=== PATIENT | female | born 2000 | race Caucasian/White ===

== ENCOUNTER 2023-06-26 10:38 | Outpatient (OUT) | payer MEDICAID, SELFPAY ==
--- NOTE | 2023-06-26 10:42 | US_ITS ---
[address] [address] Patient Name: ZOHAIB HAQUE MRN: [id number] date: 2000 Sex: F Assigned Patient Location: US Current Patient Location: US Accession/Order Number: [id number] Exam Date: 06/26/2023 10:42 Report Date: 06/26/2023 18:02 At the request of: LACI CELESTE Procedure: US OB transvaginal EXAMINATION: US OB transvaginal HISTORY: MISSED MENSES COMPARISON: No relevant comparison available. FINDINGS: Mayorga intrauterine gestation Gestational sac: 2.34 cm, 7 weeks 0 days CRL: 1.19 cm, 7 weeks 3 days Yolk sac: 4.4 mm Heart rate: 147 bpm Uterus is normal, anteverted, anteflexed The ovaries are normal in appearance The cervix is closed measuring 3.6 cm Clinical age: 7 weeks 0 days Clinical JUANITO: 02/12/2024 Ultrasound age: 7 weeks 3 days Ultrasound JUANITO: 02/09/2024 US/US OB transvaginal IMPRESSION: Viable mayorga intrauterine gestation measuring 7 weeks 3 days Electronically authenticated by: BEVERLEY RIZZO Date: 06/26/2023 18:02
== END 2023-06-26 10:39 | disposition home or self-care (01) ==
LOC: US 10:38
PROVIDERS: PCP Family Medicine; Visit Provider Obstetrics & Gynecology
DX: N92.6 Irregular menstruation, unspecified (principal); Z3A.01 Less than 8 weeks gestation of pregnancy
CPT/HCPCS: 76817

== ENCOUNTER 2023-07-29 11:15 | Outpatient (OUT) | payer MEDICAID, SELFPAY | END 2023-07-29 11:16 | disposition home or self-care (01) | PROVIDERS: PCP Family Medicine; Visit Provider Obstetrics & Gynecology | DX: Z36.0 Encounter for antenatal screening for chromosomal anomalies (principal) | CPT/HCPCS: 36415 ==

== ENCOUNTER 2023-08-26 20:06 | Outpatient (REF) | payer MEDICAID, SELFPAY ==
[2023-08-31 11:08] LABS: Age Gdln ACOG Testing Note (.); IGP, rfx Aptima HPV ASCU Note (.)
== END 2023-08-26 20:07 | disposition home or self-care (01) ==
LOC: LAB 20:06
PROVIDERS: PCP Family Medicine; Visit Provider Physician Assistant
DX: Z01.419 Encounter for gynecological examination (general) (routine) without abnormal findings (principal)
CPT/HCPCS: G0145

== ENCOUNTER 2023-09-30 09:31 | Outpatient (OUT) | payer MEDICAID, SELFPAY ==
--- NOTE | 2023-09-30 09:34 | US_ITS ---
[address] [address] Patient Name: ZOHAIB HAQUE MRN: [id number] date: 2000 Sex: F Assigned Patient Location: [facility] Current Patient Location: [facility] Accession/Order Number: [id number] Exam Date: 09/30/2023 09:34 Report Date: 09/30/2023 10:32 At the request of: LACI CELESTE Procedure: US OB cervical length EXAMINATION: US OB anatomy, US OB cervical length HISTORY: ANATOMY COMPARISON: No relevant comparison available. TECHNIQUE: Transabdominal sonographic examination was performed for obstetrical and evaluation. FINDINGS: Number: 1 Heart Rate: 166.0 bpm H.B. /min Amniotic Fluid Volume: Subjectively normal position: Cephalic presentation, longitudinal lie Placental Location: ANTERIOR, the placental edge is 6.3 cm from the internal os Cervix Length: 3.8 cm , closed Normal anatomy: Lateral ventricles, cerebellum, posterior fossa, nose, lips, orbits, four-chamber heart, RVOT, LVOT, diaphragm, stomach, kidneys, abdominal cord insertion, bladder, umbilical arteries, three-vessel cord, spine, extremities BIOMETRY: BPD: 5.0 cm 21 weeks 1 days , 68% HC: 19.1 cm 21 weeks 3 days, 72% AC: 15.3 cm 20 weeks 4 days, 38% FL: 3.4 cm 20 weeks 4 days , 36% EFW:368.3 grams; 13 ounces, 42% FL/AC: 22.0 FL/BPD: 67.3 HC/AC: 1.3 GESTATIONAL AGE: Age by EDC: 20 weeks 5 days Age by current US: 21 weeks 0 days JUANITO by current US: 02/10/2024 JUANITO by EDC: 02/12/2024 US/US OB cervical length IMPRESSION: Normal anatomy scan *Reference: [facility] Practice Guideline for the performance of Obstetric Ultrasound Examinations, May 24, 2007. Electronically authenticated by: BEVERLEY RIZZO Date: 09/30/2023 10:32
--- NOTE | 2023-09-30 09:34 | US_ITS ---
[address] [address] Patient Name: ZOHAIB HAQUE MRN: [id number] date: 2000 Sex: F Assigned Patient Location: [facility] Current Patient Location: [facility] Accession/Order Number: [id number] Exam Date: 09/30/2023 09:35 Report Date: 09/30/2023 10:32 At the request of: LACI CELESTE Procedure: US OB anatomy EXAMINATION: US OB anatomy, US OB cervical length HISTORY: ANATOMY COMPARISON: No relevant comparison available. TECHNIQUE: Transabdominal sonographic examination was performed for obstetrical and evaluation. FINDINGS: Number: 1 Heart Rate: 166.0 bpm H.B. /min Amniotic Fluid Volume: Subjectively normal position: Cephalic presentation, longitudinal lie Placental Location: ANTERIOR, the placental edge is 6.3 cm from the internal os Cervix Length: 3.8 cm , closed Normal anatomy: Lateral ventricles, cerebellum, posterior fossa, nose, lips, orbits, four-chamber heart, RVOT, LVOT, diaphragm, stomach, kidneys, abdominal cord insertion, bladder, umbilical arteries, three-vessel cord, spine, extremities BIOMETRY: BPD: 5.0 cm 21 weeks 1 days , 68% HC: 19.1 cm 21 weeks 3 days, 72% AC: 15.3 cm 20 weeks 4 days, 38% FL: 3.4 cm 20 weeks 4 days , 36% EFW:368.3 grams; 13 ounces, 42% FL/AC: 22.0 FL/BPD: 67.3 HC/AC: 1.3 GESTATIONAL AGE: Age by EDC: 20 weeks 5 days Age by current US: 21 weeks 0 days JUANITO by current US: 02/10/2024 JUANITO by EDC: 02/12/2024 US/US OB anatomy IMPRESSION: Normal anatomy scan *Reference: [facility] Practice Guideline for the performance of Obstetric Ultrasound Examinations, May 24, 2007. Electronically authenticated by: BEVERLEY RIZZO Date: 09/30/2023 10:32
--- OUTSIDE RECORDS SUMMARY | 2023-09-30 09:47 | XMS_ITS | CCD ---
Author Name Unknown Address [address] [place] [address] Organization [facility] Care Team Providers Care Graphic Manager Name Role Phone Quiana Naranjo Meredith Unavailable Burak DO Quiana Meredith Primary Care Provider [phone] BURAKQUIANA Meredith Primary Care Unavailable BEVERLEY RIVERO Attending Unavailable BURAK, QUIANA N Primary Care Unavailable TONI CARLSON Attending Unavailable Burak DO Quiana Meredith Primary Care Provider Quiana Naranjo Unavailable EMILY CHENG Attending Unavailable LACI ZAYAS Attending Unavailable LACI ZAYAS Attending Unavailable Burak, Quiana Primary Care Unavailable Benny Candelario Admitting Unavailable Benny Candelario Attending Unavailable Burak, Quiana Primary Care Unavailable Brock Watson Admitting Unavailable Brock Watson Attending Unavailable Brock Watson Admitting Unavailable Brock Watson Attending Unavailable Burak, Quiana Primary Care Unavailable YANIV CHAU Attending Unavailable YANIV CHAU Admitting Unavailable Burak, Quiana Primary Care Unavailable LACI ZAYAS Admitting Unavailable LACI ZAYAS R Attending Unavailable Burak, Quiana Primary Care Unavailable Luis F Reaves I Admitting Unavailable Dave Reavessein I Attending Unavailable Quiana Naranjo Primary Care Unavailable Allergies Allergy Classification Reported Allergen(s) Allergy Type Date of Onset Reaction(s) Facility (2 sources) natural latex rubber; Translations: [Latex] Allergy to substance (finding) [facility] Repository (4 sources) Penicillins; Translations: [Penicillins] Allergy to drug (finding) 12-16-202 1 [employer] (4 sources) Latex Propensity to adverse reactions to drug 2 Rash [facility] [employer] (3 sources) Penicillin Drug Allergy rash Tomorrowish Other Medications Current Medications Medication Drug Class(es) Dates Sig (Normalized) Sig (Original) calcium chloride 0.0014 meq/ml / potassium chloride 0.004 meq/ml / sodium chloride 0.103 meq/ml / sodium lactate 0.028 meq/ml injectable solution (3 sources) Start: 03-23-2022 End: 03-23-2022 lactated ringers bolus ferrous sulfate 325 mg oral tablet (1 source) take 1 tablet by mouth in the morning ferrous sulfate (IRON 325) 325 (65 Fe) MG tablet Take 325 mg by mouth in the morning and 325 mg before bedtime. 0 Active metoclopramide 10 mg oral tablet (2 sources) Dopamine-2 Receptor Antagonist Start: 08-08-2021 take 1 tablet by mouth four times daily metoclopramide (REGLAN) 10 MG tablet Take 1 tablet by mouth 4 times daily 15 tablet 0 08/08/2021 Active w/o A Vit-Fe Fum-FA (PRENATA PO) (2 sources) w/o A Vit-Fe Fum-FA (PRENATA PO) Take by mouth 0 Active Completed/Discontinued Medications Medication Drug Class(es) Dates Sig (Normalized) Sig (Original) aspirin 81 mg oral tablet (1 source) Platelet Aggregation Inhibitor, Nonsteroidal Anti-inflammatory Drug Aspirin 81 MG TABS Quantity: 0 Refills: 0 Ordered: 20-Feb-2020 DO Active 2 ml ondansetron 2 mg/ml injection (3 sources) Serotonin-3 Receptor Antagonist Start: 08-11-2021 End: 08-11-2021 ondansetron (ZOFRAN) injection 4 mg Start: 08-11-2021 take 1 tablet by lucila th every eight hours as needed for nausea ondansetron (ZOFRAN ODT) 4 MG disintegrating tablet Take 1 tablet by mouth every 8 hours as needed for Nausea 20 tablet 0 08/11/2021 Active 50 ml sodium chloride 9 mg/m l injection (1 source) Start: 08-11-2021 End: 08-11-2021 0.9 % sodium chloride bolus Problems Problem Classification Problem Date Documented Date Episodic/Chronic Early or threatened labor (2 sources) Finding of uterine contractions; Translations: [False labor, unspecified] Onset: 03-23-2022 Episodic Other complications of (1 source) Mild hyperemesis-not delivered; Translations: [Mild hyperemesis gravidarum] Episodic Other screening for suspected conditions (not mental disorders or infectious disease) (1 source) Carotid artery finding; Translations: [Other nonspecific (abnormal) findings on radiological and other examinations of body structure] Chronic Spondylosis; intervertebral disc disorders; other back problems (1 source) Sacrococcygeal disorders, not elsewhere classified Episodic Transient cerebral ischemia (1 source) Amaurosis fugax of right eye; 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 Results Test Name Value Interpretation Reference Range Facility Coding Summaryon 09-03-2023 Coding Summary HTMLBase 64 HgensitfBQx8vUw+PGhl YWQ+OP4DYJJoH82lcIBz bK8hT5LLTEeHGhecZTXE UCmZWjQuoeCaRU7uiWHy ZXJu IC8+IL9mKLCwJysciERx j2T4bRT3M33rqk5uOLcz lRW2KSTfTkZkuhuuv4kj pYn9MYxtEqesTvMz LOIlxX71XPS8iO87Hl41 aCLdnOBgw2mhbOr3FqHq PTAlYBZ9qXluVIseu7Ah XYTqT92qjHQzo2L7 IGNvbGxhcHNlOyBlbXB0 jO4jCRqcqojxm6cwrlyr Pvz5xa95gOBks4Q8nSI6 T6WrgfU3DCQzwWCq KytbmPBTuG0mogyal4zd yazcSuAzNDQhVHp4TZb2 RUDvwZqaReNpSF71NAJ7 SFDjdvBqX8NcBBWm sFilBhE0r1N5Nv1RF2VP AkyfK0PLLUOBMKaayEL+ UZ28br98A2IuVobjZbj5 SLHvHCH8bQJ2qT7m GFFaESujq3O8qRS0M8Bd zqRsrg9ft0erJGHhSUjp N74kfNIgc5R6GTDuxZJ5 KKDchJadQsSmbF79 Oyc+MXZfkTjzx7JqUwan o6gcb6jjqQy5BgyzSDLl vgHreCduKFH3k3ZpGz4h VESlfSC9lYQ1jW1s VaKeOwP6CUlpU988GbKb tOLuDahoC47sH0GszKO+ CSVqZrz2YHQenUsgEQ2r Z6DoMZJivzzetUDf nNuzSJ1oUQTdieieCEGd cV1zLMXfI8o5KsGqCxR6 BMovP7VhDIZsyzgbVa82 eA7tJqZmDxF4UAdj Z2MmtuA8UJQkkRDrSYws JJS3R70pr4T2PLLbVBIu LXH9sLS3gX7xeQuiflrm bGVmdDsgdmVydGlj QUhdXXieF041ZAOsnXxv PkNvZGluZyBEYXRlOiAg MDEvMTEvMjAyNDwvdGQ+ ZHKsJGM3qGcyEVKx pGMhSKeoIr3swZwtoCmz VV0mTWFfukcgPPIbnD4h ZTKrvLXveSwaJT7qRJAv tofqi908VhZdEHO1 HCBxsTRwV8YihK4hPuKg SVYeBCZzQ4IzjGFcYTeo O212VCchOkK5LNYatrJt H3BfKLXnwUhuJwA0 e9P1Ra2Nd1IilpsnE4Gi uOIzBoFiEyekOWy8B5Hj PjwvdHI+RV23LLJqSY52 TNd3XAH9cRfiFOhg WCYdP6SdqV3xBrRnBMPv ZGRkOyc+PHRhYmxlIHdp ZHRoPScxMDAlJyBzdHls DY2jNe6zUHOhHFTz uKeyoMPkTwUob0fyKAKz ZSsoAM4gfOfrV2FtgOX7 XNRrv3b9Cb53K68lM2Rx dXA+BJXdrRD1wBK9 gE1yXjRvNyP3SMxuQ003 PnDwuJEbUqqbo8jcd9ox hKc8GoV9UCIwqrRoyCyp FGW0r0GqWe11E27w IHdpZHRoPSIxNSUiIHZh vPyexs4gvC6zOp3+PGNv vCK5tRY8sP0wOlCkQzB5 QTziU710NpTvsTUr Nypct3gon6zexNo9DaGu GTPpanGlnNnyGFU4g5Fk Xh13O5FkeNasd7DuVkt2 xp64gGKcg8T2iUN0 O5KtHMTvhppqiZHowJua CG5gSOUyzqrfICViiU4h NRCaH1i9PmCoVyJ5MLan I0UmauL0BNSiiCNa NFQogMZJzX3vwatvn4vn pqozDwGiLHXhMAb2JMs9 MODmvAkeDgBpMFD4XzL6 FHG0aVEajX5zwNgp mefeeI6sLaf+QWF7dJMf rQFOEY9qDhesmHK+PHRk MLW1zZibDYzpWPKqhE4q IVUcF8w8RuMiUlK9 ERexE1SfmgJ5WODvqLKv YCWhgUEZxH9bcblbn2ac ngkkPeSmIQNpCIk6GKh1 LWFsaWduOiBsZWZ0 CaQ6FYS4xYIgvF9lcHzq ynydxW2vVdx+QmlydGgg YMH3UHt8M0DsTkc8RPBm xNqxHG0buELySAmx Ty2iwSnauAhaIT6hQANo wzlno508WkBop3oaDNWn iLXmETujYNB8P36vd7L8 YZOtCEXxFCR1tKJ6 nN0vwSnwflvidSKpnObe azNplIjaZKkbSVngC612 PCDnhFdjGfPtRQa8M8Mo Egm5QHYxdTehJR3r uBSlJFkfGy0ggDhofUmn CD6bJTEgwpdrt735XjHl t1ajYPQsdMXoWTxrUGJ7 Z14ix1T3TPZcSODq LEE1kJA5jF7koXtikdqr bGVmdDsgdmVydGljYWwt FUptC747WUApzTdlBkQi lIs9O5VdMvw1SOVn dYdwUQ5tiNDfZIsqNx0p rTgpdWqiFJ1uCJOmvpwl w323KtYpn0itYLTuvAYy UYobIXZ7Q88vk7V2 ZCNiFNBaQOM5vLI8eL0s bGlnbjogbGVmdDsgdmVy vTifHNjmBAsnD232ESQc cDsnPlBhdGllbnQg ZOtdPJl7J8GnPqrqyHK+ SS92YGMrCI24xKMwfGJh m3tauTm4XxXdNPCjFKM6 dJklHOjca9YpDCUm E63gfTOjn4O3SIBosBcg aLGiHrVswXY3mP0hXIkt izhsi3dnbgvyMztip3kk iy55oW61A35lWBuy ZHRoPSIzMCUiIHZhbGln ac7fhK8rSn8+PGNvbCB3 vJD1vY6cIIPgQgS7EMzt E439TiHuzJDsRbca r9diy9htsGe4QtC1YQDo ckYtoBmpPYO2y3LrOk40 H15sFCpeGLLtYTGbKZIx BNSzgXydyj1bqS0c Ii8+NWJwcIG8tVG6cS9e SyAdFgS8CYlxO161VtSf pCVfYivhI56bE2LkdMG+ HZEtMiu8MQMnuHuk FD0umSUeXKmuHi3oYQB8 OeVfBiQyFTizH2ZnCRIw czoxkdmowOV1FFGcJAMk cA36Uq2uqLpbLGGi nLLGcO0lenflg0hkzpvb ZaCdJVBjOLq3RRy2XVVj xCfqErXjWHZ7TcQ9QMS8 vKOknH9kcKyvhqko qO0uT6ZlRYYsloltYx81 pM6yMxHoLoA0OZteRkl+ U4RAJ5svWQ2OLowBZjZY VWJGI2MUSV74UP23 nNEyu2W3cOU6P4CoXOLq yjvwebugnIK4PAUxRWAa kD08uGPvHZnxCl4fb9W2 s322PXScTXUkaQ31 Cv2qyTprHNDqrTTZuY4f deavt3smhpufLzJjJWDv QZh5TKs8GYOnnIdcKtNa DEG0TvO6HDQ8zVIq iA8ruVcwlkhqlZ6lNif+ MTAvMjMvMjAwMTwvdGQ+ UHLmPFG9hBbhRAnkDZJq nC1mIAIvP4j3HyDs XjY7RZbbP4WlVFGdyusk Nw41kU2oTxWoVsE6HKrm K9RrvyZ1QVDnkSMhLHuu EBA4W62kc6F1OPLv NEKcXWB4aTY9vT6nyGmw bjogbGVmdDsgdmVydGlj SFxsGNsnE899JZCyzPur CnNaQKemQVVsRE08 GL54sNUhs5O5eBE3A0Iv YAXnaeghqcikwWY1SZFe QCTzmW12uSZvEOsbEo2s u1N9k781ILSaMGTl gZ79Zs3xaHtfTAPvkZXD lP0bqosjo3narxbpIpOq ZHOeFYx1JHc7BWWlyKss UdFpVHV4OhP8ZHD4 bSFyyS4qiTywibmuzS9z Oyc+UcVFBSpXFE90MK34 jZAam1J5mJH3Z8BxQISj ojrzkhfqeNE2JZRh ZKLibC52wVTvSSgaXg6e n8I5w480WGTtEIBbfS86 Gv8ioTfxCUPpoOQGaC2l npadz7emcxjkRpGb OFYlQJg8RDy4WORrxRcy RsVjMTU8LlQ6AEY8lCKi bM1rgNnmtlurzZ4cEvk+ QG2iudlxxsV4AG52 VB40U2SmYnrfoLXmkWR+ PHRhYmxlIHdpZHRoPScx KJCyXgEhpBbyZS5kEx0a ZGVyLWNvbGxhcHNl RtJuy3wiDEEuTRpzDQ5k fRasW3UqeAB0IVEhl3n5 Ar84V59pT7PupDL+PGNv sJW7mCB7eS4wGtDn YnG4COhxZ469DzVugUVh Yaxvb0ezp5ljrWr3WoQe YCVemfLaxLtaEXX4y7Ao Ic54L51gWJwcEURv RJTnTGDsIYKjfIftxn0r xO5fNr5+EOHtiRS2zDA5 fG5qUgScSxH6YMfiY880 IoZrsUIvCcntN90a Q9CofPM+OZPgYia7ZIHj rWrcTM9axRVlCAoaGt3j XUQ8TsUxTjAdHZqnK8Ad ZGRpbmctcmlnaHQ6 YRNuXMJbmP24Lh7iaGiu Co3lWZBiBZA1TMTuvLZf N9BobW3hBnFkIRCuEGOq D0QdbHOsUOvsP450 FEvmKhV1FAYvszLvH6Ue OBAleVstEuZ9u6D9Ir3C dYccsWZmPB8pRgZnVAz8 M2BpQpt9AWImxZlm OM2axWTqUOebWk2uwXpf pYfnMF8eWRWmfrdyy522 QhCxf2xrSLAvhNYxKCnm FDU1S04gl5A5TRFf QWLiVTK7fOR3bH8zlKfa bjogbGVmdDsgdmVydGlj CGzmAXjiY987QJFbcFmu GhLKLic4H4XoJon8 PTNuyIhcAP4dmDFtJSnb Pt5jgBkivEcqPD0aYASt rscwd520SqObn6mjUAQz hHLwDXsaSOK2Y17y s3N8HAUoGVDvNYA2oNJ1 tZ0ixGwdvuqvmZVrzCjc rlArgWynZJlxDQofS966 QVAixXzbAq3ZXyg6 Q7LzRuy8KYQvfNmiNT1n aAGlYVdzLq0inMxjiDgp OR5wJOIdopprf457VoMo b7ilFTPwiQMwLXxf WJK0D46it1V5WNLrYCRd BME5mAR6rF0zhJdpymhg bGVmdDsgdmVydGljYWwt VSrxJ708LXQqeQqf PlBheWVyOjwvdGQ+PC90 vj34G1GqFqwqGtk6IIJo UMG8nRP5rS0wOSUaMGbs l9K7cXK2N7LzfiYi ci1 (more content not included)... Normal [facility] .QC SARS-CoV-2 (COVID-19)/Fl u/RSV (GeneXpert)on 08-22-2023 Internal Control Pass [facility] Comment on above: Order Comment: Order ed by Natan.[[email or web address]] Performed By: #### 7 [id number] ####[facility] (DEFAULT)[address] [place] [address] COVID/Flu/RSV (GeneXpert)on 08-22-2023 Flu A (GXpert COVFLURSV) Negative Normal Negative [facility] Comment on above: Performed By: #### 7 [id number] ####[facility] (DEFAULT)[address] [place] [address] Flu B (GXpert COVFLURSV) Negative Normal Negative [facility] Comment on above: Performed By: #### 7 [id number] ####[facility] (DEFAULT)[address] [place] [address] RSV (GXpert COVFLURSV) Negative Normal Negative [facility] Comment on above: Performed By: #### 7 [id number] ####[facility] (DEFAULT)[address] [place] [address] SARS-CoV-2 (COVID-19) RNA MICHELLE+probe Ql (Unsp spec) Negative Normal Negative [facility] Comment on above: Result Comment: Perf ormed by PCR methodology. Performed By: #### 7 [id number], [id number] ####[facility] (DEFAULT)[address] [place] [address] ED Clinical Summaryon 2022 ED Clinical Summary [facility] Emergency Department [address] [place] [address] ED Clinical Summary PERSON INFORMATION Name: ZOHAIB HAQUE Age: 23 Years Sex: FEMALE : 2000 MRN: Acct#: Visit Reason: Chest pain - Pleuritic; Sinus Pain/Congestion; CHEST CONGESTION Arrival: 08/22/2023 09:35:20 Discharge: 08/22/2023 10:51:00 LOS: 000 01:16 Check In: 08/22/2023 09:35:20 Checkout:08/22/2023 10:51:00 Address: [address] [place] [address] PCP: Quiana Naranjo DO PROVIDER INFORMATION Provider Role Assigned Unassigned November SENIOR PYTHON DEVELOPER Nurse 08/22/2023 09:41:27 Luis F Reaves MD ED Provider 08/22/2023 09:43:28 VITALS INFORMATION Vital Sign Triage Latest Temperature Tympanic Temperature Temporal Artery 36.9 DegC Pulse Rate 72 bpm 105 bpm O2 Sat 97 % 100 % Respiratory Rate 18 br/min 16 br/min Blood Pressure /58 mmHg /58 mmHg MEDICAL INFORMATION Medications Given: Medication Dose Route albuterol-ipratropiu m (albuterol-ipratropi um 2.5 mg-0.5 mg/3 mL inhalation solution) 3 mL Nebulized Inhalation Allergy Information: penicillins; Latex PHYSICIAN DOCUMENTATION DISCHARGE INFORMATION: Discharge Disposition: Home Discharge Location: Home PATIENT EDUCATION INFORMATION Instructions: Bronchospasm, Adult, Avql-bs-[id number]; Upper Respiratory Infection, Adult Follow-Up: With: Address: When: Quiana Naranjo [address] [place] [address] Business (1) Within 3 to 5 days Comments: Call for follow up appointment DIAGNOSIS: Reactive airway disease; Upper respiratory infection Patient Understands: Yes - Patient/family/careg iver verbalizes understanding of instructions given Comment: Normal [facility] ED Patient Summaryon 023 ED Patient Summary [facility] - Emergency Department [address] [place] [address] PATIENT DISCHARGE INSTRUCTIONS Patient Information Name: ZOHAIB HAQUE Age: 23 Years Date of : 2000 Reason For Visit: Chest pain - Pleuritic; Sinus Pain/Congestion; CHEST CONGESTION Arrival Time: 08/22/2023 09:35:20 Primary Care Physician: Quiana Naranjo DO Attending Physician: Luis F Reaves MD Comment: Visit Diagnosis: Diagnoses This Visit Chest pain - Pleuritic ([id number]) Reactive airway disease (J45.909) Sinus Pain/Congestion ([id number]) Upper respiratory infection (J06.9) The Pharmacy at [facility] is open Thursday through Thursday from 9A to 6P and Thursday and Thursday from 9A to 5P Prescription Information: If you have been given a prescription for narcotics, seek immediate medical attention if you have any difficulty breathing or any sudden status changes such as confusion and sleepiness. If you or anyone you know is experiencing suicidal thoughts, mental health, alcohol and/or drug addiction problems; contact the [facility] 16/03 Crisis Hotline -Text 4HQUB zc 364618. If you received any narcotics, sedation, or any other medication that causes drowsiness for the next 24 hours, unless otherwise directed: ? Do not drive a car. ? Do not operate machinery such as power tools, lawn mowers, drills, sewing machines, or stoves ? Avoid alcoholic beverages and drugs for allergies, nerves, or sleep ? Do not make important personal or business decisions or sign any legal documents With: Address: When: Quiana Naranjo [address] [place] [address] Business (1) Within 3 to 5 days Comments: Call for follow up appointment Medication Information: The exam and treatment you received today in the [facility] Emergency Department were for an urgent problem and are not intended as complete care. It is important for you to follow up with a doctor, nurse practitioner, or physician?s ophthalmic assistant for ongoing care. If your symptoms become worse or you do not improve as expected and you are unable to reach your usual health care provider, you should return to the Emergency Department, we are available 24 hours a day. For those patients who have received Radiology results, the interpretation of your X-ray as given to you by our Emergency Department physician is only a preliminary report. The Radiologist will review your films and if there is a change in the diagnosis you will be notified by phone. Please make sure you have provided a working phone number so we can reach you if necessary. In the event that you had a lab culture while you were a patient in the Emergency Department, you will be notified by phone if there is a need to change your antibiotic. Please make sure you have provided a working phone number so we can reach you if necessary. [facility] Emergency Department has provided you with a complete list of medications post discharge. Please inform your sports physiologist/provider of your visit and for further instruction on these medications. Any specific questions regarding your chronic medications and dosages should be discussed with your primary care physician(s) and/or pharmacist. New Medications [facility] [address] [place], [place] [id number], [phone] albuterol (Ventolin HFA 90 mcg/inh inhalation aerosol) 2 puff(s) Inhale (breathe in) every 4 hours (scheduled) as needed for wheezing. Refills: 0. amoxicillin-clavulan ate (Augmentin 500 mg-125 mg oral tablet) 1 tab(s) Oral (given by mouth) Every 12 hours scheduled time for 10 Days. Refills: 0. Additional medications on your home medication list not specifically addressed. Please contact the ordering physician if you have questions about these medications. azithromycin (Azithromycin 5 Day Dose Pack 250 mg oral tablet) 1 packet(s) Oral (given by mouth) once. as directed on package labeling. Refills: 0. ondansetron (ondansetron 4 mg oral tablet) 1 tab(s) Oral (given by mouth) every 4 hours. Refills: 2. ondansetron (ondansetron 4 mg oral tablet, disintegrating) 1 tab(s) Oral (given by mouth) every 8 hours as needed as needed for nausea/vomiting. promethazine (promethazine 12.5 mg oral tablet) 1 tab(s) Oral (given by mouth) every 4 hours (scheduled) as needed for motion sickness. Visit Information Allergies: Substance Reaction Symptoms Type Comments Latex penicillins Drug Vital Signs: Vitals and Measurements this Visit (last charted value for your 08/22/2023 visit) Vital Signs This Visit Temperature Temporal Artery: 36.9 DegC Peripheral Pulse Rate: 105 bpm Respiratory Rate: 16 br/min Systolic Blood Pressure: 111 mmHg Diastolic Blood Pressure: 58 mmHg SpO2: 100 % Oxygen Therapy: Room air Measurements This Visit Height/Length Latoya (more content not included)... Normal [facility] Coding Summaryon 07-27-2023 Coding Summary HTMLBase 64 RdsbqcjvUDj7kRs+PGhl YWQ+FN1NBCQyR82hdRFh wC6fI6WGKWhGFldxSVTQ ICzNYfYyycJuYR5bsTKt ZXJu IC8+IK6aBMRaJnxusAXr l8T1kNQ7J78wlw4bRQaz dZK5HCNnWdOqbaupi1gl rNv0REsuUkvdCsDa WSVqhT78BRI4aC26We57 oPJlxDSds4euiOq5CcSn JLRhGWJ9mWcpBYzko0Zq DRAnE30oiCFmw3Z5 IGNvbGxhcHNlOyBlbXB0 tG9rYJpmunmdr0ynbbla Zxq5az50fPJmc1F5yVP7 R3KewyR2XZFrcWZa SevgyRUBmG9todvtk1wo gkhvByEcSNNbYGs2TWx7 OYFvxYspAvKuBB27PQC6 LRKlxmLwR0AyDMCt iXmtYkF6t6Z1Oi2RR9FN FysaR2VJUWCYXJqpwAF+ WJ06qg45X7TpLyumTlo7 RPIvPBI4tMP3rA9k UXKhLHeei3G4xUS7F7Cs woLsdh9eh3btONOpTGan R09ftAYmc0H6IVWrgCF2 CDSxvIegYrGmmL25 Oyc+RKNimDjmg4EnIfqs p9wcz3wieXj3PozrCDJn hgXqqPrdFHR3n7EuIm7t FVDolOY5nSH2gL0k LbXgOzP0UYhmC896DwQv qDMdZaszK52kZ8MdlSL+ HTLhGyp0NVGujKccYL5d S4LuTPQfrhowpFDx gUvyMO9yMZPhglrxACFw gY3vZQSeP9x8SkMdPgY1 ONhaZ6AdMLAbitqtGj06 lJ9iRpPqEsM1DZkz W5WgciX8BEUwlREbBAyu INP2J76dg8Q5FYDiLVVj TXY2gNY3sR8ggNdlwvkr bGVmdDsgdmVydGlj QWwrDBkpQ382DITglByo PkNvZGluZyBEYXRlOiAg MTIvMDQvMjAyMzwvdGQ+ VCWvMKY6nUflOXSz bNGcHPazVa2dbDiltBdr IU0kXLMgeqfnMRCyvO7v WCIhgIJdeTivNX4eCWIk ipaxp055DuBmOST8 NBYrwCWgN5LdbL7oOoUc LLEwSTYhE1ZeyBUhRBtp K617EFtqYqZ9KXJhenUa N5YpKTVzrVchFpD8 q5X1Sz2Wt8WomjblD9Mc yAChRdRzBgjpWVm7M7Ny PjwvdHI+SI11HYOzHF92 QGq0ZAA4bWhfXQyf CBTzE6RtkL3iVqSzHVDl ZGRkOyc+PHRhYmxlIHdp ZHRoPScxMDAlJyBzdHls XA8uZb0pSZAlQKFu rLfgaTNuVoXjt1wdLJZr BAzwWO5kwHkbH0OugWN6 AADxb9r9Tx65V38lU1Br dXA+UEIdbFZ5oUE0 nW4sYtNjBzJ7SHgzB417 ZjKweWRsDbrzm3lkr0qm fSn0OkY6RUDactQvmIkt ZWQ7t7OtCy59N67v IHdpZHRoPSIxNSUiIHZh nJmmto0ctR8nAm3+PGNv nPK5nML2nM3oDnBjYaT5 SFzcN735EjCjoRSz Rclcy1zrv4dlcSz3MuQw MXTrbeLoeJamIZX2z0Tq Ri55H6StlYzrq1LcGnb0 oz09iABej4N0pLH5 A7IhLSYywjdszHDoeJfd IZ7sPIUtdjhuFVClwC8p OKCsT3q1EaGlDhT9HIpc S7DvsvR9EIEkyPHr TKPfiBAFjN7osfcij2jj xcfsWzOnXCLsFQt0DNc2 CBMmoAzaXaOfLZE9FzB1 PGJ2lKRuyC3ydWct dfggvY9wBul+IHS0cRVr tIHQKL1iCgbqgHF+PHRk SGC2xRyhBSkxMWCwaL8i EPSmZ4f0AnMqTsO9 ONpgU7HoonH4ABSsnQPo LJYazTINjW2wvgoxl7xu rlisRgViLIWfERe6MWr9 LWFsaWduOiBsZWZ0 VpZ2TPD5uHUzsN0puOiu xlidhA2mAly+QmlydGgg VXF9GMb1S5RzDew6YCXc mJhhVZ9yaTGlGFas Md8puAxqsYqqEC2rPTXx vrkze201IdVsa8qfQFCz oGNwYNxpBNU6M87il5A8 VPTnAKDbVTV6qPG3 aP7gtDaibjddfZDynWky keGjhXzqAGdsWQwzS482 FJKujHvsGzUcIVc6M0Md Qat6CCLaaPnuHT8i hBZzJXooCu4agHpjkIlo LP5lMLPpzhwvt031LkHe m8kuLEOcxMZqBKkxXVL0 H46pi5X6XHWxDUXe ECJ3jCG5uH5ryMesolqx bGVmdDsgdmVydGljYWwt HIwkV394KDSpqAacBcJf lJc7E2NeNqt1TGAi nAznDF9nuHOsNWveHb9n cQzcqKoxHZ9lLDOfppqk m107PeZky5beYGDhgEOz HZgxLWX6R74yn2S6 NKEaTEVoUJZ2yTH2fC0h bGlnbjogbGVmdDsgdmVy uNwyZEurRInpI860VCFb cDsnPlBhdGllbnQg LAjfORr0A3KiXyxofQQ+ WH81BQBzXB28iIOpfAGo u4zjvYg0LiBdYKNkDMA4 aMzuQWjsm4TsLZCb Q48wkUIok8M9KNRjlLor fBNrKsJisUK1mZ8eNBhh bdajb9qngyreNjsgk3wz ou81jI05T60wNMee ZHRoPSIzMCUiIHZhbGln gr4vnD4bTq1+PGNvbCB3 hOO3nW5oIRDbVsI4RJth Q494TdDxfBQpKfqd h6iql3hodDk9YpM6EWPb ynFofDayNWH6z6WeJi29 M37xTJfsEUQpFTPkCYWa DDBpsHqqnd1buU5c Ii8+NGKwyXW3zUQ8yC8z ImGgHcA5HKgyE755GpVd tJKzBtwgK37qB7KqoVS+ GDVpBgk8AYXplPcw BM4xsAFiDMzcQi2aACL3 ElKcWbEcQEpyR9BfVENe wuccaioxhSS0ZUUjVPDn dY23Sh1sqPetTTJa oIJBcI7hfcdfn3zibski UxEeGPRoYLh0RVs3SDVw cLenIpBfDZD5VrN7XWY2 vJGyzI5jpBzgwqwg aR7jU1MyEEYnnqcnCa30 qM8iOgScZdP9FBkxTcq+ U6EHU8peTJ8RFslGApUK PUJKK0HYIJ69OW78 pWCht8T3xJT1F0HrLYRw vhviwslijET3FFVaTQBw rG42fPSpBVziOu6st4J5 r503EBOjGLOoxZ81 Mv9ykRrjDYLisESIbS1n sihac1tiynnaDcMyXRCl EBk7QYs1XEXcqChvWyKp YSP2CuF0JSP9sPQo xP7rqWrhpnfnlF3lGfr+ MTAvMjMvMjAwMTwvdGQ+ MNOuXNJ4lGmrHAxeHCCe cQ0wQBDmB9d7RiHa VpT6XVzwC6JrVUXqejci Fq26rA0lGsNvEcE0AOop O2FywjX5DURajATjUBdc BQG2S18qq3F4JEBo VJNhBHM6mAM0pR5flPlr bjogbGVmdDsgdmVydGlj NHrgGWewH769AYRyqCef ZoOoMTmuIXTqFS62 LO22vJQzd1F0cIY7B3Wt ZBXwqdzgrendgNJ1SPLt WWIuvW21ePMhLRwtGk6w t4U9b789YXOiOSOx qB70Ni5jdZecHNSvqKVC nF9dppzki5ksouppPtWs EWVeNPn3CCs1RBBouLgv YuFiIDF5FpG5XGX4 yMFkzD6jxUekxuacfB0i Oyc+CzOCDGlJML59JU45 dJQur3X9iTT4G5BhSMKo xaxufibqeBK4SLGe APPkoB53eFZsFZhtLh6j l7N8v613YHTtZDEasD60 Vu8bxKhbLMXwaNTMvR5v syuky9cmhntcGzSo SGXbKIi3ODp6CXOeuArk EySjDJP7QcE7BWY7uUCn tI2lwRlwqlijtY0uReq+ Z3V9K9HiFmugbWE+ KS25PSDwRQ82pBWdiMSz p9elrTk6FfCbXNFwDXX3 bRtxBFatz1UnVCCpO35l hMVmn1J9VFPisCty qQCwBfJdmPC7qG9yJCru ceuik7zpqxgdOggwr3us zl11xD17H61hLAhiDFEv PSIzMCUiIHZhbGln ye1zuU7eWo0+PGNvbCB3 oMR9zL5bZlLfLiB7FFra R604DgEelELvFihfn4bb j8kayRu0HzCsKXIv mhUngQklYXA0r8UsBb85 J42cPUcgBLCiZYYsPPZh WSWsfXopqh0ahY0nDh1+ FS7ui8abre70tT83 dHI+OPTgIBD9pRxwLOxx EXKrxY2fDXkmSaX3TUBl HmUvoR14zOZfKMmcAq9l yHprvMsvAR4mTRDj xkywu528UpMtc4ifFJKy hYUePRmoOXR1O32cw0I3 OHSmWCKeODM9vIL6qC0s bGlnbjogbGVmdDsg meEugLwjHWiiYXrtO777 CARuqVimMlTcrHIkA4vb bbMHQG4cWtaypCI+PHRk SMS2pPuiRHcjYHDx xK6wNQFcV5l1HdTzItM0 NHyeF3IwcqZ8VTMspXXl ZMUohLZBiL6tiawhb6va cjogIzAwMDAwMDt0 LJx7WEAopEouXzSoQON1 OvG3DVO9uYGaqP7moTya rdknnH7rBvi+RklOOjwv dGQ+ETYbZCW3iSia LRtfUGQtbH1cNFTuK5w7 EqAhRxU5KQegU4PshnH0 UDLmgNMeKZHgbITDuQ6g lcpui1nvnlngDcSo DHCeQYd4GHu4WTDooVrm KxLmHMS9NaN2NXH9vCAd oT1sxQcummbdeW9vLrc+ TVJOOjwvdGQ+PHRk BMN7uHlfVXgbCDRbuJ4v TZOyX5g5YlVzIxP6BBgi X8NzcaW1SOWlrHKqDDNb nLCYpE0myhllh7kq lgbyPaSdQCJzKIu2GRo3 OVJxbMslNtHiKGW4PlJ5 JZZ8lISunP2kuTmpabcp rL6pSea+ELP5FJH6 SM48DU18W9TkKovsxMFx bGU+PHRhYmxlIHdpZHRo NNuwTKRtPoArjVucQF6r Br6aKSOvEZUzwSvd cHN (more content not included)... Normal [facility] .Toxoplasma gondii Ab, IgM, Comment on 07-25-2023 Toxoplasma gondii Ab, IgM, Comment Comment Invalid Interpretation Code [facility] Comment on above: Result Comment: It is presumed the patient has not been infected with and is not undergoing an acute infection with Toxoplasma. If symptoms persist, submit a new specimen after three weeks. Performed At: [facility] [id number] Ryan Voss PhD Ph:[phone] Performed By: #### [id number], [id number] ####[facility] (DEFAULT)[address] [place] [id number] C Urineon 07-25-2023 C Urine Mixed skin, or urogenital giovanny. Clinically insignificant Normal [facility] Comment on above: Performed By: #### [id number] ####[facility] (DEFAULT)[address] [place] [id number] Cytomegalovirus (CMV) Ab, Ig M LCon 07-25-2023 CMV Ab, IgM Cytomegalovirus LC <30.0 Invalid Interpretation Code 0.0-29.9 [facility] Comment on above: Result Comment: Nega tive <30.0 Equivocal 30.0 - 34.9 Positive >34.9 A positive result is generally indicative of acute infection, reactivation or persistent IgM production. Performed At: [address] [id number] Ryan Voss PhD Ph:[phone] Performed By: #### 3 [id number], 2275141, 4277630, 35644760, 16697818, 136117018, [id number], [id number], 7445098571, 50841479, 13100852 ####[facility] (DEFAULT)[address] [place] [address]602 HSV 1 and 2 Ab, IgG LCon HSV 1 IgG, Type Spec LC <0.91 Invalid Interpretation Code 0.00-0.90 [facility] Comment on above: Result Comment: Nega tive <0.91 Equivocal 0.91 - 1.09 Positive >1.09 Note: Negative indicates no antibodies detected to HSV-1. Equivocal may suggest early infection. If clinically appropriate, retest at later date. Positive indicates antibodies detected to HSV-1. Performed By: #### 3 [id number], 8737443, 7036805, 80723133, 46754684, 461197659, 6500236663, [id number], 5423144625, 23731896, 53937170 ####[facility] (DEFAULT)[address] [place] [address] 12672 HSV 2 IgG,Type Spec LC <0.91 Invalid Interpretation Code 0.00-0.90 [facility] Comment on above: Result Comment: Nega tive <0.91 Equivocal 0.91 - 1.09 Positive >1.09 HSV-2 Antibody Interpretation: Current guidelines and recommendations do not recommend routine screening for HSV-2 in asymptomatic individuals, including those that are . A negative antibody result indicates no detectable antibodies to HSV-2 were found. If recent exposure is suspected, retest in 4 to 6 weeks. Equivocal samples should be retested in 4 to 6 weeks. A positive result indicates the presence of detectable IgG antibody to HSV-2. FALSE POSITIVE RESULTS MAY OCCUR. Repeat testing, or testing by a different method, may be indicated in some settings (e.g. patients with low likelihood of HSV infection). If clinically appropriate, retest 4 to 6 weeks later. HSV-2 IgG antibody testing results should be clinically correlated. Performed At: [address] [id number] Ryan Voss PhD Ph:[phone] Performed By: #### 3 [id number], 0958642, 0957587, 09928985, 90336777, 896817999, 7312741619, [id number], 5867681642, 46914712, 55945216 ####[facility] (DEFAULT)[address] [place] [address] 46055 Rubella Antibody, IgM LCon 1 09-25-2022 Rubella IgM LC <20.0 Invalid Interpretation Code 0.0-19.9 [facility] Comment on above: Result Comment: Nega tive <20.0 Equivocal 20.0 - 24.9 Positive >24.9 Performed At: [address] [id number] Ryan Voss PhD Ph:[phone] Performed By: #### 3 1531122, 6759338, 8014048, 26073286, 05072715, 143544768, 6845364081, [id number], 1144152698, 12620788, 48454824 ####[facility] (DEFAULT)[address] [place] [address] 80367 Toxoplasma gondii IgM Ab LCo n 07-25-2023 Toxoplasma gondii Ab,IgM,Qn LC <3.0 Invalid Interpretation Code 0.0-7.9 [facility] Comment on above: Result Comment: Nega tive <8.0 Equivocal 8.0 - 9.9 Positive >9.9 Performed At: [address] [id number] Ryan Voss PhD Ph:[phone] Performed By: #### 3 3997448, 4167175, 1022541, 54112908, 22711380, 763466091, 5503993323, 58430474980, 4513091865, 62771008, 84951341 ####[facility] (DEFAULT)[address] [place], [place] [address] HCV Antibody LCon 07-24-2023 Hep C Virus Ab LC Non-Reactive Invalid Interpretation Code Non Reactive [facility] Comment on above: Result Comment: HCV antibody alone does not differentiate between previously resolved infection and active infection. Equivocal and Reactive HCV antibody results should be followed up with an HCV RNA test to support the diagnosis of active HCV infection. Performed At: [address] [id number] Ryan Voss PhD Ph:[phone] Performed By: #### 3 3126142, 1114577, 0776980, 60630254, 71149410, 580848917, 7282643814, 54496934115, 2959651829, 46090484, 89449789 ####[facility] (DEFAULT)[address] [place] [address]154 HIV 4th Gen Screen w Reflex LCon 07-24-2023 HIV Scr 4th Gen LC Non-Reactive Invalid Interpretation Code Non Reactive [facility] Comment on above: Result Comment: HIV Negative HIV-1/HIV-2 antibodies and HIV-1 p24 antigen were NOT detected. There is no laboratory evidence of HIV infection. Performed At: [address] [id number] Ryan Voss PhD Ph:[phone] Performed By: #### 1 [id number] #### [facility] (DEFAULT) [address] [place], [place] [id number] ABORhon 07-23-2023 ABO and Rh group Nom (Bld) Hx Check: Not Found Anti-A: 4+ Anti-B: 0 Anti-D: 4+ DCon: NT A1: 0 B: 4+ ABORh Interp: A POS Invalid Interpretation Code [facility] Comment on above: Performed By: #### 3 [id number], 6120812, 6608001, 69956114, 09422218, 424757238, 7289454817, 57132935603, 4863973984, 08870967, 71967958 ####[facility] (DEFAULT)[address] [place] [address] ABORh Retypeon 07-23-2023 ABO and Rh group Nom (Bld) Ordered by Discern. Anti-A: 4+ Anti-B: 0 Anti-D: 4+ DCon: NT A1: 0 B: 4+ ABORh Retype: A POS Invalid Interpretation Code [facility] Comment on above: Performed By: #### 3 0758986, 0795196, 1852718, 10669604, 87252060, 167746338, 9689661756, 85007682557, 3274558210, 38541914, 12641990 ####[facility] (DEFAULT)[address] [place] [address] 93096 ABSC Gelon 07-23-2023 ABSC Gel Negative Normal [facility] Comment on above: Performed By: #### 3 9608028, 9926553, 9205170, 50216206, 39295781, 820577591, 4110378721, 64988497885, 3833369902, 88950752, 94997012 ####[facility] (DEFAULT)[address] [place] [address] 05923 HgbA1c Standardon 07-23-2023 .Hb 12.6 Invalid Interpretation Code [facility] Comment on above: Performed By: #### 3 3700031, 7885950, 7421450, 13237735, 48435964, 177808847, 2561531553, 23303024456, 5030319236, 18979289, 75706444 ####[facility] (DEFAULT)[address] [place], [place] [address] .Hgb A1c 0.44 g/dL Invalid Interpretation Code [facility] Comment on above: Performed By: #### 3 6741453, 0301975, 6403086, 92640212, 29139209, 424643685, 3585517250, 76171478845, 9393339920, 88572385, 42938334 ####[facility] (DEFAULT)[address] [place] [address] Glucose [Mass/Vol] 105 mg/dL Invalid Interpretation Code [facility] Comment on above: Performed By: #### 3 6170613, 2953387, 1339608, 68150430, 65667878, 041914011, 4919592437, 98973315277, 1346711786, 92283291, 93258680 ####[facility] (DEFAULT)[address] [place] [address] HbA1c (Bld) [Mass fraction] 5.3 % Normal 4.6-6.2 [facility] Comment on above: Performed By: #### 3 6412327, 6469120, 1083710, 90926837, 59983237, 096741024, 3902717148, 69423997065, 4722114847, 89225251, 30430295 ####[facility] (DEFAULT)[address] [place] [address] Progress Note - Specialties/ Departmentson 07-23-2023 Progress Note - Specialties/Departme nts [id number] #[id number] Normal [facility] TSHon 07-23-2023 TSH Qn 0.88 m[IU]/L Normal 0.45-5.33 [facility] Comment on above: Performed By: #### 3 8148334, 0931391, 5152004, 03360886, 91057745, 920532416, 8760852906, 94331892691, 2771503387, 54743716, 19656617 ####[facility] (DEFAULT)[address] [place] [address] 47449 Coding Summaryon 07-20-2023 Coding Summary HTMLBase 64 LddjxturMGz6hEw+PGhl YWQ+QO5HXTCqP12sjYIi lK8jD3JXSViDLzbkHVIQ UBkJZbOipvZaRD9khGWh ZXJu IC8+VT7dZRJhTomalNQx z4A9oDU6D96mmx3iSUhw vCW1AUDiHzPznwnqk0hn xFg1MJwyPlaqPlVd WYMbiF61YWE4jD34Bs51 xSDpvVFtq9rpgHj2YdMh SDEuACN6vKzaLHspd1Oa MNEoA81zsABjw1W5 IGNvbGxhcHNlOyBlbXB0 yX9xATwoyffzn1crzdqq Zzj8od90dATyr4Q6yMK8 M1OxniP3ZSAgrKDz JafkeXQRhL9isutet4mz znyjGpMeQLAiEQf4ELg7 RLQfpHzgGiNeQN02HAS2 PSGzepApZ8JzRGYm eMjxGyL2w8R9Un4LK9SH PntlD7GHTIHHVMdckHP+ HA52tt15X6WhGuwtNpz7 CKJdHMW8uSE6wW4e WWZfDMxzo6M9oQV7V6Dv viFlhi5pe1isODYoQVta T09mfOJdm0G9NYNnoNE1 SPGdrBobVvPhgZ74 Oyc+EPFlsEidx5CrZrsc m4lpx8jmpKo4LdpbXOLk syDclOwgMJW2j3IaNw1c PJQtkKO8lZX3oX6c WmBtJrF6NCqiU341IsLp mLFmWpdcO17cY9GvqFT+ TNKbQug4KANnwYfjYE9v J0AjKAVuzvkevRVa fAdwPK0xYNDiczweFFBt uF5kCHZhP9a7RjEfZhL3 ODybF8BtPEMxzztdVq74 iT9nBwXyRjB4WIts R8ZoiyU7VQNxgUEiBXha XLI1J87kw6W7CCAaDMVd AWN0nCR0sQ4kpTfwcoxx bGVmdDsgdmVydGlj ROwbZHmfV102TTHdkPqu PkNvZGluZyBEYXRlOiAg MTEvMjcvMjAyMzwvdGQ+ RCMvVJE8lDopHKLv jETaRBhkEb1spZvguRnw TN1jMTHgejqhDJRjcS9k VVAahWSxyFxnHI1sELIo fzcqp111OwSfGBZ0 KGHnaCGkO6ExpE2rOrKk PWYcXKBcI4VgxDJxCRju O088VCsgTeW7VDGivhDf X9WfTFRxvMmvIsJ4 u9K4Du7Ge1FkhnfoT6Ih jFZmIfIiTwrgPJw1R6Bv PjwvdHI+TN70RGWoWV73 ZEv0IQN1qQvdSSce HZZnC4YejC2pAnPwMXZi ZGRkOyc+PHRhYmxlIHdp ZHRoPScxMDAlJyBzdHls WN9xPu5lSETpVEWw hUvsbKIxNxSju3xxDQEa UZtyEX9flEjjE5RilGG0 FEXtj5w3Lq18K39bR3Ol dXA+BBNvzGV3hMJ8 fK6kPqObMbT4EGpkT552 NzGemJCvArlhq4nay3jz eFu3LqM7BAKtskTimOlp ANT8r4XnMn90T38d IHdpZHRoPSIxNSUiIHZh cFtcmw5hsO6tDq5+PGNv zPR9jJT6zG1wCmMaSmN2 HPkaT432BvShiWIx Gzyzn8edn7loeVt4WbPh YGIvwrSpeHipLBX9x9Yl Gs82N4WxqUtkv0NrVdi5 fs28aRLsq4U7oQW3 V7CvWTLxsokzjIVueIyx UG6sYYXlfaesEPAdcY1k SJZyT6x3AdEhZhM1CGtj G8CpzfE3PATxhVSf ZDSonAWFkS6cayvav5es dmdsQgChLYMwQRh9PEn9 CMVxaNgeCaRkTCP8NpT7 CWX1wWGsiN4pyVik qmlepZ2nUuk+YWH4cBJo xWRUNS1gDqmslMU+PHRk HRZ0tPfsGIgsFRZktD6d YGNfS6z1VfRoKhG7 SFxeN9BoubN2BPYlyKBt MDDxpYVTcM9pjxpvy9vo jvztJqDjVOGdSOf9NBe9 LWFsaWduOiBsZWZ0 GzT5YNV5iTVcxZ0lvGek yendjC2hWoh+QmlydGgg NLN7HCv5A1XmRdp1TGFo kCjsWA3vsYHaGMrt Gm5ofXigqNzrED8yFKVx btrau252UrSwx9itUPRm hKUiUUynCVR8H15qh6S9 DLOtSSAkPYB5xRS9 vH2wiYtsmwsozUNaiLtp ttSbfDnvDJhoGIbhO307 XEHaoJwjSgDsWNd9O2Ir Ame9EKVvsRtdLR9q mPLoVBxoYo3abEtrvUjv UX0lMHBhnlwqs816JxDh e6xtKJTewFNaKKxvVZN6 Q51lx6H4GIMxTJAx EBF3gVO9lJ9wqNxmgztx bGVmdDsgdmVydGljYWwt XNllZ792UFTlkIrpNgFq jWh7J1HtKdh8GCAu kFyjOH7rkTDvTDebFj3c hSftjSoeVA8bYRPkaxyz e034CoChr8xnAHEajKEy FBjpUKD9M24nm4K9 KLCdVXMpYOK5dCZ3bE6q bGlnbjogbGVmdDsgdmVy gHuwPWljSJejZ762CFTg cDsnPlBhdGllbnQg IYzqICj3E0AbUoicwZS+ JN80JQHpHN75iINunSWu r6wgfRf1ZsZnLCKdFYT2 lZcmKItxn0IoGDCz M18gzNZqh5Z1XMPopFtq oRVhShKtcOE0aS6gZAjq yhfsu3bdgunePrwpw9tr bk48mN80X97vKMnh ZHRoPSIzMCUiIHZhbGln qv1ziF8qAr0+PGNvbCB3 xTK6dO7mTDDrRhD7DHzu S617QsYurXQyXcvm q7dwe8gvfFp5RxL3UYOo hsQwzTglJUZ1c8LaXa35 S73vNZfcJJMiWUGfMZKt KJZqjCaykr2coW5o Ii8+DWFlxJC4pPZ6tA1t PxVpXaI4JNqmF450MpSv jINyLezyV31pA4AqoFP+ JCTkUbv3YBGaxUtf YV7irLWoFJeyQu1tHGN4 CkGjChCzTXaoD0OiHVMy kcuzqtbexTH0EGSpRZQv qV59Er1pnXvnCIOi cJLMuZ8fxtnmf0ojvjce AsSsIVGrNBa1HBh8MCWm xFvoKwZyUIK3VgV3QII1 wJQlwR4fqPiqbyxd bN0iU5IdIRZcefwfRu65 gP0tYwFhEhD0CLfgPkb+ Z1BGV7kyAU4OVzuSKyBJ DXPRM4KBGV32NA99 jTAyi9T0gAJ6T5YdFYUd hjzpjwpltRP9OFPkDRCv tK65yOAzTVmdRl0li6E7 v994WXCkXMQyjZ68 Rp3hhWccNINsjQRAlR7y akgjv7mnipleMzUlPNJn RLc1NOx8JGPulDwuZwNv FIL1AuC6NSW6zHFg tJ1ouVmpdietcJ9hCrz+ MTAvMjMvMjAwMTwvdGQ+ BGCbAPC5pCduXJtuWKZj qM4qCYAcH7o4YdKa YeF1HZtaQ9HrAMZhmpqv Ro84jW7cUcNxLiF2QQoz V6RopnC9DLDjvQIvNJaj PMJ7P55dv8Y1SIHz VGApJWU3fPF1cD3kpKqr bjogbGVmdDsgdmVydGlj GPqeHQwxN141XZScdCmt XgZzDXrfLPOwIJ44 GQ99eUBrp1A3iNC1S0Hc TREwvahgtrkyeJQ7EBFc NSAisM38qMVvBQoxRy7k a5B4h034FUZmLDCa tU29Vc6dkQsqVTDpkTOT xH6aqlatz1lzclwkBuTz YDMzLNr9MWo3CJSuiNfe ItHxAIB2MeL6NIZ2 jAFoaY2isMrdvxxvnX8b Oyc+IyHZDBrUVF39KM10 bRNez6D4kRO1Q0DxZMYn dzybphnteVH3GLSb BGRvnM63xPBtHKvwSy7b n3Y3y790QWJpTZVdjC50 Yz7fuZvaNZKmdISAmK3m dumxq0vvqdnjMcQl OVKyAFc4PPq7AHQzwLpr OhFuSLV0PzC7DWT6lSAt uS8ikXndvgtuiI4gKjg+ DB6aebecqwI4NM78 JR14U0BuZhbwfPLwjSL+ PHRhYmxlIHdpZHRoPScx VVUeHbSvgHdkBZ5pIe3o ZGVyLWNvbGxhcHNl WmDpt0bkKIEhAMlkYU5v jVoyK5WgiDS4DZUmk0p8 Lt84U02jE8UevAL+PGNv eRU1mXK4fQ8sPbZn LnG9KCiyH022QwGueDDw Mloiz5ntq7ekmWx2SxOe FUYjieQjaZvkUAN3o0Gp Wp79T94nJBlxFHWp ZZOxURIuDULcfCnkpt7r tI3oWw9+VPOemZK0yGH9 wK1fTaYqKtW1NVkwI871 XxSjsJNkDnqkV45n G0DkdLP+NYJfAfm4HROs tHlcYL9ngPCyXHsxWk5r IZF4TgHtOxVuDVfrM1Fi ZGRpbmctcmlnaHQ6 SEUlZFHmmY12Vb1nkSju Um5nAXTvQGK9IKErlDBs H3BtvY6zVqMqSGAiERPo O9EewJEyQYqkP560 PPlkUtB2ZBJgmxAmF8By LENfmSwnBnT0s5O3Bh9P lSnhsJHdYR7xFdJvVDh0 K7DgUup2OCSfrHwv VE4vmIVlLQgnPj2kuFsy yLmcOO6zHXMjadzon169 MoVjc6buXZCrxYNsBZpv PJK6U68wp5U2BGVt VOEjMDC0mMP4yH9ahLjn bjogbGVmdDsgdmVydGlj FYtpWHceR515KFDzlAao QpKAPay3W4IsFex9 LZBstCfpAC8mwRZxPLzy Hh9kyYzjgOozZF0dMJZv ezhff500NtQug4pjBLVp xCFtGQykEDM4Y96r n0Q8UHZsPAQtIAN1aWE1 hF9ibXcnzehnnVRaoBcx iqXrqCkcOWpbDNlrH315 JAAzhWvnBa1WYbq6 O8JtWio0DDHkjGrjHS0b wNSjTBykPd0fxOemrAal ZV2uLISsjhcuw306CqIl p2kdSSGyjJUsFEod WKM0Z17sk6J0ISMeOREl KLU5lYZ3rO5inQvwrryc bGVmdDsgdmVydGljYWwt SSmhH143XFTmdSnz PlBheWVyOjwvdGQ+PC90 ka92Z4WnRucjJxz2ZZDp KWJ3iVH1aJ3qIPOsNPco h0F0cAO3R0UqpaMn ci1 (more content not included)... [facility] Coding Summary HTMLBase 64 TsjleckeXYc7uDq+PGhl YWQ+UG6WKEDkL77toRFb nR0eY6YQAGvFHcxlAIGL PXcDQwGgynXpBW4kuUUj ZXJu IC8+PS3eRBUtZlhetRIl j5G0iSW6D59bue2bRTbt xQN6VDIkGqUqtnpot0yn lFm3ISqjOfrqUxLq QPRevQ78AXM7rH50Xn94 sLCwvEQmg5jjaMw8VhLm XWAzNAN5aTqaZGfqh0Zp DXSuN49agQKqg0A1 IGNvbGxhcHNlOyBlbXB0 cV2kQInxbnvsy7zgtvtc Rmg5wq01xEHge9D5mLB7 C0BfnzQ9OUMtcJJv ZakjxVVHnA1elswss1jp skiwYtAjUYNaCMd1YUs9 YXSjjBkkJaSnWG78SWZ6 DYGlphKjX2WkBOUx hTbcUbS3j7R7Qh6PE0NJ ZjlfI4WFMXCBJNdydII+ ZH49lo99G7CcVlseSdl7 ARWlCWP9ySY4aL0f CVCwVZxhg5F9zLD7V7Ft scVelz0at4ojFZIsGQwt F60bzBJsk6G2OXEkrHF8 SIEvcSszUvRxmW20 Oyc+BLDbwRnuk5YrBazo k3ciu4plqZg4AqrhSYJm nvSaeHusTYI1x8YlHo5q XLUcnSO4oGP7yZ3m DoEbTrN7HBmqX907ZuJe yLLfYozxJ00gK1JhgZM+ VIScRrk5HQChoErmGT6a V7UqWBKofwoulBUl mCgjDA7zGPJdkuslFBXx tY1oLGDaZ6b6UnVsVzP8 GQdpT0PmKDUpwaquDb48 qO2dVcLlOxF7ZUqf W3CfyrZ2IJXycALzXJjn QYV1X70rs4E5YQHiYQFk EBI2pOJ1sK4qpKnyhzhy bGVmdDsgdmVydGlj FYugEJwvS957UMYaaPve PkNvZGluZyBEYXRlOiAg MTEvMjcvMjAyMzwvdGQ+ UICdCCQ7iPupSXRd qNQsKFnkCc6eoMmseDan UE5eDFWdvpjiKYKmuQ9x ANHteIHgbNrsFL7zSDOx hjbue501GeJwRCC8 UNUqmYUmN9DykR0cXhFb BQUwIAAfL5QijTByDRzz T101PXlxZsH4VVTldhDi M6KvPMXgkDnxQcE3 w8U7Ke5Oh7BgshujJ9Wk tWMcRqRwPkktPSb7G8Se PjwvdHI+QM54KCPdZV70 UQp1TXY2hIetWLet BZMqO0LblZ8sXpAnZCJm ZGRkOyc+PHRhYmxlIHdp ZHRoPScxMDAlJyBzdHls DK6yMt2qWOAcFLPf lBejtLUgAhRvh6gpGCTy EKweLN3ufIeyK5DldOB2 DNZtr6k6Ti80O38mK0El dXA+NWJlrVV3zJS0 jB6zEcQxBpL7SMpnB505 GpVznCShGsgsl2lad3xq lNw5PxH6JIRsmlCpiPek RTT4h5OgLh16X11m IHdpZHRoPSIxNSUiIHZh wBiojp8odY9vRg5+PGNv fYO6rSN5dM5mXoGrHlS0 PEkvN578FaLifBDr Lfafo0hhj9gkoIz9GfGf VVNdtsOexIgqSAG2t1Bb Yz49X8AqbAgbb6UoByz2 tq97oBJvk5R6yQR6 H8VvATFltqyggZFblJqq CS6tRTObhlyoADBowA3h DRCzK1x3UpJoKiF8XEwe A5HtujL7EPNlzIUz BDKwjWCFrF1pewxoh3jw zmidVaBgVVJiZCa0WSn6 XJMgoQmjBxAnTSZ2BlZ9 XQW1jOBkvG7chCdy rsjjkH2rZab+MHM6kTDe pQPMAZ1qErbbnQC+PHRk WXR3eMpcTGuiJZWdzN2f JLIzW2h1UnSbPpI0 JJdwG2EmagL0DITrxERw QMDffJQQnO7paxnqx1dw vevsCfQzYAAyYBh8LYn8 LWFsaWduOiBsZWZ0 QhS2JTT9vQOyvF3eiJqc gacvtS5hUxz+QmlydGgg JPA4KRw0A3PsOfh5JXGq oJrpVW9skHMkIEkz Bw1djTmiyPgmZG2qTPGf svtvv864TaLjh5gmWISx xPHaBXenASH1F27jv6Q7 DOQlYADbZHC8fHD2 oV9xaFdvcxefmGMrjYjd rjNuwTijPJryEIecT124 GMTiyIwfVfIkCKf8D6Mo Yux5VBQqoKekHE5a tDSxSEevPi5ylAfpgSvx LQ3xVUGxvupwt781FeNv s9pxNUUliQKxQMxdTAS7 P54mk6A5HASnMHUc MMZ9xZP0lY4jeAzbnhpv bGVmdDsgdmVydGljYWwt CAlkH957UWUahFhdKeCc kAo0G0BeHam8VPMo gUlyYP9mlNHeBQrdQd0f aSywcFtoPB7pEGBnmgfe h296GnXxd3gwOKUfrXTi AVxjAGJ8N19in9C4 MFKgXBKwEVZ1bSG1gL5z bGlnbjogbGVmdDsgdmVy yMneCKckDSeqJ549UQOj cDsnPlBhdGllbnQg KUqgKMv7W5LkLikkkDE+ IK06QBBaQH34hVShkCFh s3qehBs6IiLvHBDnQUE5 fDmyMSwsu7EmEHLj Y38kpBFza7H2MBHeqWll qYHcOeGprZG2zH9dFCuc bohat8awstlvCoruy6sd wi93vA04T42wIRog ZHRoPSIzMCUiIHZhbGln ko9ueV0nHw2+PGNvbCB3 nGN1nE0eULDmHdL6SElh L662CbWdzQGfLuzo v7tpk1txcTi9DjD3NIOq zrDqlWnwUVM0n3XbYz24 W09oEJxrJOXlIVDkPWYx DPXiaPhuzp4dkZ3d Ii8+UEHolVT0rJV6vS1k BeNvBpE2IYzlE526UsGc dXRvBdvqZ72qP3UtvJF+ HFIfOmj7FBBdeDoa NC4vsMEhXHijFh1aNWP0 GrBhVaDtYTmaN9PsRJOf simvthyzlSR9ETVgKLPz sJ62Sz8gmCazWUPd uPFGvX7eletbd0goukzx KvHvCGPhJZu7LCt2KCUv yQqoTmMjKWP1KcB7YOV4 wUEufH7krOrqmbrw nW7dD0FmSQOsnnqwRd10 iZ7nRlHhViT5ZJbkRsp+ D1NMZ0uaAQ8QHojUQqZH DKXVL9FVAJ77UE44 xFQqc6C1eDM6L8NxNUKc bbjtxbhonCL8NCIoZLMj xS19sUOeZDgdDd2no4J6 o339NBEfBIYgqA13 Mn9ooOsyOXBspGJAnJ8q axtqg9wvbmghTrRdWMFv AVa7REv3TDDiyJkrTzLs KOG6LgC0SUD6mMDj iF8xqQciefywaJ1vTvg+ MTAvMjMvMjAwMTwvdGQ+ DFEgIBG8cHdiQKoiHVGt dB1mUDZpH7m4CxVn KzO2TSbvG7DwXDMggmtu Af16rO6kRjRoSrI6KCbi K9VgaeK9DORmqPKgZWia YYE5K43ul1F8PAVq WNQjEEA0cMU6kL1poOwx bjogbGVmdDsgdmVydGlj PMkrFIqdL573UFOosSlc EnRsYRblONHnOE87 RU67pOEhf6L4mED8L2Gh SGGgvktyouxkrHC8JUHo FWQlfP24rKNdHRziDt7z z7O6m994VDDvCBQm zM22Wv3sqQghMYWjiAUZ oU0zleiud2wjcnbnHhJk OHZtUBu3DDj4QUCiuJhb GeYnMCP0IgL5MDJ0 xPLdvU3quYwoirfrwW8y Oyc+BnEEDUvEHF99HR82 iOBpn0M7xCL2K4JdSGFl oedwwmtzxIV3BDBj KLIbjK06qOFlISjySt3i q9Z3c083BQTjUJQegF35 Rz8yzFftCVKkdZSUwN3l nzumg8eewhvpAjUh PGOaOUb4ASg1OGKxpTue IuHdMAV4ZyR3KCG3wQUh gK0qnEnuxtzmrS5uRrg+ T8O5D8VkShmtrZV+ VC92KXCvEO53lLVaiEZi e4udmAj8HqZnUYQqMLG6 yTrxFQmnf8XeEEJdY94b kZEwb4N4JUBluGze jDLmLtYiiCU0nF8zFEik eskio7zabhspLuind5nb ti27gA42P33qLEbqPJCz PSIzMCUiIHZhbGln pf4ilR7zQf6+PGNvbCB3 jUI2zL5kRmWaAtQ0LSgi Y388ThKxxLWsRzgqr7sf m3kslKj0XrRyWKMx axHbuJicMCX4o9QaBv79 I59jFCspBKLhFAIzKQLn JXSxoIqxzj8qhM0oUl1+ HA5ei8tdio83rS64 dHI+CUExJFP2nYnmURez YTOtvZ1bFCdgIsM2TSFz AkMkiD24yQCrKCctGa9o hVwonEanEN5fFMPh pbfwl315RrPus6haJPBn gXBgCOsnTZO2X12kg5Q3 VMOtXXUgTBX4ePJ7iT5n bGlnbjogbGVmdDsg qnDrkJemZIgvSCuqT156 DEWxjFdgOcRnmIDgL3ea voRPQL8qAsxewRL+PHRk WGQ0wLuqNAoyNKMh fC8uTGZoX5w7RmVpVlF9 XHavV9IofqD2PXEcbEEb QJJbaGEUdY1dawojz6xj cjogIzAwMDAwMDt0 HQf2TEInsLfzSwRqIAK1 HvC5RCI0eDMceA4ucJtz yfqopE2lLhq+RklOOjwv dGQ+WZPgLCV3oKje XMmpVCTbyO4bCAKuA0q3 XsEtNaD5MDmfZ4QwmcH8 ZVFviKZgFNPjsHIKkC1f qmjau2adjyisSsTa RTVkWFb9BEo0OMBogOos PzFfDMR0IcM7EEF7lHEq gT3dbGwnuojrlZ5zQbb+ TVJOOjwvdGQ+PHRk XAS2gIkmXLazXVRfaD8k NAHyU0v4TtBoYtK1PDdw D4JriwI5UWYhlYIxVRFg bXDImS7zdeblz0ih jhsfCpNtQUMgQPk7TYg2 FSZbyUaeVkLqKFU7RgD4 VED6hONjrH8hdCcljcju qW1xMsp+WTC5MFY1 VS51LW46V2WwIsmpqLPk bGU+PHRhYmxlIHdpZHRo XYscBGByOnBgpBcyOH8h Wo0xUSWlSJNgxQay cHN (more content not included)... Normal [facility] C Throaton 07-15-2023 C Throat Ordered by Discern. Light growth of Streptococcus pyogenes (Group A) No NURA performed on this organism Normal [facility] Comment on above: Performed By: #### 6 [id number] ####[facility] (DEFAULT)[address] [place] [address] .Auto Diff 1on 07-14-2023 Auto [place] % 4 % Normal 12 [facility] Comment on above: Performed By: #### 1 [id number], [id number], [id number], [id number], [id number], [id number] ####[facility] (DEFAULT)[address] [place] [address] Baso Abs# 0.0 x10 Normal 0.0-0.2 [facility] Comment on above: Performed By: #### 1 [id number], [id number], [id number], [id number], [id number], [id number] ####[facility] (DEFAULT)[address] [place] [address] Basophils/100 WBC (Bld) 0.3 % Normal 0.2-2.0 [facility] Comment on above: Performed By: #### 1 [id number], [id number], 6695999, 1496515303, 89775959, [id number] ####[facility] (DEFAULT)[address] [place] [address] Eos Abs# 0.0 x10 Normal 0.0-0.4 [facility] Comment on above: Performed By: #### 1 [id number], [id number], 0648236, [id number], 79665452, [id number] ####[facility] (DEFAULT)[address] [place] [address] Eosinophils/100 WBC (Bld) 0.3 % Low 0.9-4.0 [facility] Comment on above: Performed By: #### 1 [id number], [id number], 1198218, 8991405487, 99799883, [id number] ####[facility] (DEFAULT)[address] [place] [address] Lymph Abs# 1.2 x10 Low 1.3-2.9 [facility] Comment on above: Performed By: #### 1 [id number], [id number], 4032343, 3904580813, 93697128, [id number] ####[facility] (DEFAULT)[address] [place] [address] Lymphocytes/100 WBC (Bld) 14 % Normal 14-48 [facility] Comment on above: Performed By: #### 1 [id number], [id number], 8726350, 0163598839, 59327122, [id number] ####[facility] (DEFAULT)[address] [place] [address] [place] Abs# 0.4 x10 Normal 0.0-0.8 [facility] Comment on above: Performed By: #### 1 [id number], [id number], 6661987, 0566285206, 69782034, [id number] ####[facility] (DEFAULT)[address] [place] [address] Neut Abs# 7.4 x10 Normal 1.5-9.2 [facility] Comment on above: Performed By: #### 1 [id number], [id number], 5307044, 8176790262, 24253108, [id number] ####[facility] (DEFAULT)[address] [place] [address] Neutrophils/100 WBC (Bld) 81 % Normal 44-88 [facility] Comment on above: Performed By: #### 1 [id number], [id number], 9004191, 4815298640, 36032311, [id number] ####[facility] (DEFAULT)[address] [place] [address] CBC w/ Auto Diffon 3 Erythrocyte distribution width (RBC) [Ratio] 14.1 % Normal 11.5-15.0 [facility] Comment on above: Performed By: #### 1 [id number], [id number], 6635400, 3611287038, 07609641, [id number] #### [facility] (DEFAULT) [address] [place] [address] Hematocrit (Bld) [Volume fraction] 36.7 % Normal 33.7-40.4 [facility] Comment on above: Performed By: #### 1 [id number], 7460123602, 3746791, 6407442083, 88564227, [id number] #### [facility] (DEFAULT) [address] [place] [address] Hemoglobin (Bld) [Mass/Vol] 12.3 g/dL Normal 11.3-15.9 [facility] Comment on above: Performed By: #### 1 [id number], [id number], 0146511, 0361014209, 05759280, [id number] #### [facility] (DEFAULT) [address] [place] [address] Man Diff? Auto Invalid Interpretation Code [facility] Comment on above: Performed By: #### 1 [id number], [id number], 9367000, 9397555763, 15126509, [id number] #### [facility] (DEFAULT) [address] [place] [address] MCH (RBC) [Entitic mass] 28 pg Normal 24-34 [facility] Comment on above: Performed By: #### 1 [id number], 3785989161, 5757479, 7327075591, 51217684, [id number] #### [facility] (DEFAULT) [address] [place] [address] MCHC (RBC) [Mass/Vol] 33 g/dL Normal 26-37 [facility] Comment on above: Performed By: #### 1 [id number], [id number], 8597830, 3175714181, 27914174, [id number] #### [facility] (DEFAULT) [address] [place] [address] MCV (RBC) [Entitic vol] 85 fL Normal 81-100 [facility] Comment on above: Performed By: #### 1 [id number], [id number], 3569183, 6368237277, 47404417, [id number] #### [facility] (DEFAULT) [address] [place] [address] Platelet 198 x10 Normal 138-427 [facility] Comment on above: Performed By: #### 1 [id number], 5855682715, 6804970, 1460533293, 70551840, [id number] #### [facility] (DEFAULT) [address] [place] [address] Platelet mean volume (Bld) [Entitic vol] 11.1 fL High 6.3-10.2 [facility] Comment on above: Performed By: #### 1 [id number], 7703889346, 7833283, 5074650701, 18466552, [id number] #### [facility] (DEFAULT) [address] [place] [address] RBC 4.31 x10 Normal 3.70-5.30 [facility] Comment on above: Performed By: #### 1 [id number], 8581029520, 4716541, 0470529668, 93515296, [id number] #### [facility] (DEFAULT) [address] [place] [address] WBC 9.1 x10 Normal 3.5-10.5 [facility] Comment on above: Performed By: #### 1 [id number], [id number], 0349078, 0199683552, 24297585, [id number] #### [facility] (DEFAULT) [address] [place] [address] CMP Standardon 07-14-2023 eGFR Non AA >60 Invalid Interpretation Code [facility] Comment on above: Performed By: #### 1 [id number], [id number], [id number], [id number], [id number], [id number] ####[facility] (DEFAULT)[address] [place] [address] eGFR AA >60 Invalid Interpretation Code [facility] Comment on above: Performed By: #### 1 [id number], [id number], [id number], [id number], [id number], [id number] ####[facility] (DEFAULT)[address] [place] [address] Albumin [Mass/Vol] 4.0 g/dL Normal 3.5-5.0 [facility] Comment on above: Performed By: #### 1 [id number], [id number], [id number], [id number], [id number], [id number] ####[facility] (DEFAULT)[address] [place], [place] [address] Albumin/Globulin [Mass ratio] 1.2 {ratio} Low 1.4-2.6 [facility] Comment on above: Performed By: #### 1 [id number], [id number], [id number], [id number], [id number], [id number] ####[facility] (DEFAULT)[address] [place], [place] [address] Alk Phos 40 IU/L Normal 32-91 [facility] Comment on above: Performed By: #### 1 [id number], [id number], [id number], [id number], [id number], [id number] ####[facility] (DEFAULT)[address] [place] [address] ALT [Catalytic activity/Vol] 18.0 U/L Normal 14.0-54.0 [facility] Comment on above: Performed By: #### 1 [id number], [id number], [id number], [id number], [id number], [id number] ####[facility] (DEFAULT)[address] [place] [address] Anion gap [Moles/Vol] 6.4 mmol/L Normal 5.0-19.0 [facility] Comment on above: Performed By: #### 1 [id number], [id number], [id number], [id number], [id number], [id number] ####[facility] (DEFAULT)[address] [place] [address] AST [Catalytic activity/Vol] 19 U/L Normal 15-41 [facility] Comment on above: Performed By: #### 1 [id number], [id number], 6452944, [id number], 31802657, [id number] ####[facility] (DEFAULT)[address] [place] [address] Bili Total 0.6 mg/dL Normal 0.3-1.2 [facility] Comment on above: Performed By: #### 1 [id number], [id number], [id number], 3255283574, 84678863, [id number] ####[facility] (DEFAULT)[address] [place] [address] Calcium [Mass/Vol] 8.7 mg/dL Low 8.9-10.3 [facility] Comment on above: Performed By: #### 1 [id number], [id number], 9897245, [id number], [id number], [id number] ####[facility] (DEFAULT)[address] [place] [address] Chloride [Moles/Vol] 109 mmol/L Normal 101-111 [facility] Comment on above: Performed By: #### 1 [id number], [id number], 6653283, 6501081412, 30893324, [id number] ####[facility] (DEFAULT)[address] [place] [address]269 CO2 [Moles/Vol] 23 mmol/L Normal 21-32 [facility] Comment on above: Performed By: #### 1 [id number], [id number], 5401551, [id number], 20408451, [id number] ####[facility] (DEFAULT)[address] [place] [address]99 Creatinine [Mass/Vol] 0.66 mg/dL Normal 0.60-1.30 [facility] Comment on above: Performed By: #### 1 [id number], [id number], 8707658, 3605320048, 21732792, [id number] ####[facility] (DEFAULT)[address] [place] [address] Globulin (S) [Mass/Vol] 3.2 g/dL Normal 1.5-4.3 [facility] Comment on above: Performed By: #### 1 [id number], [id number], 2389362, 0899024179, 01698237, [id number] ####[facility] (DEFAULT)[address] [place] [address] Glucose [Mass/Vol] 70.0 mg/dL Low 74.0-118.0 [facility] Comment on above: Performed By: #### 1 [id number], [id number], 6634195, [id number], 19742047, [id number] ####[facility] (DEFAULT)[address] [place] [address]9522 Osmolality 267 mOsm/L Invalid Interpretation Code [facility] Comment on above: Performed By: #### 1 [id number], [id number], 9668130, 5210908637, 76153714, [id number] ####[facility] (DEFAULT)[address] [place] [address] Potassium [Moles/Vol] 3.4 mmol/L Low 3.6-5.1 [facility] Comment on above: Performed By: #### 1 [id number], [id number], 0950951, 4162242203, 53277376, [id number] ####[facility] (DEFAULT)[address] [place] [address] 36866 Protein [Mass/Vol] 7.2 g/dL Normal 6.5-8.1 [facility] Comment on above: Performed By: #### 1 [id number], [id number], 3087268, 7042617831, 17039978, [id number] ####[facility] (DEFAULT)[address] [place] [address]29 Sodium [Moles/Vol] 135.0 mmol/L Low 136.0-144.0 [facility] Comment on above: Performed By: #### 1 [id number], [id number], 1889125, 4459731985, 12143508, [id number] ####[facility] (DEFAULT)[address] [place] [address]34 Urea nitrogen [Mass/Vol] 9 mg/dL Normal 8-26 [facility] Comment on above: Performed By: #### 1 [id number], [id number], 8746781, 4946293833, 11464228, [id number] ####[facility] (DEFAULT)[address] [place] [address]697 Urea nitrogen/Creatinine [Mass ratio] 13.6 mg/mg Normal 4.6-16.2 [facility] Comment on above: Performed By: #### 1 [id number], [id number], 9629406, 3034884313, 19865724, [id number] ####[facility] (DEFAULT)[address] [place] [address] ED Clinical Summaryon 2022 ED Clinical Summary [facility] - Emergency Department [address] [place] [address] ED Clinical Summary PERSON INFORMATION Name: ZOHAIB HAQUE Age: 23 Years Sex: FEMALE : 2000 MRN: Acct#: Visit Reason: Vomiting - ; 9 WEEKS , VOMITING Arrival: 07/14/2023 17:44:12 Discharge: 07/14/2023 20:54:00 LOS: 000 03:10 Check In: 07/14/2023 17:44:12 Checkout:07/14/2023 20:54:00 Address: [address] [place] [address] PCP: Quiana Naranjo DO PROVIDER INFORMATION Provider Role Assigned Unassigned Cherie Monsalve SENIOR PYTHON DEVELOPER Nurse 07/14/2023 18:26:21 Compa Blackman DO ED Provider 07/14/2023 20:09:02 VITALS INFORMATION Vital Sign Triage Latest Temperature Tympanic Temperature Temporal Artery Pulse Rate O2 Sat 100 % 98 % Respiratory Rate 16 br/min 14 br/min Blood Pressure /55 mmHg /55 mmHg MEDICAL INFORMATION Medications Given: Medication Dose Route ondansetron 4 mg IV Push ondansetron 4 mg IV Push Allergy Information: penicillins; Latex PHYSICIAN DOCUMENTATION DISCHARGE INFORMATION: Discharge Disposition: Home Discharge Location: Home PATIENT EDUCATION INFORMATION Instructions: Hyperemesis Gravidarum Follow-Up: With: Address: When: Follow-up with your ditching machine operator /helper driver in 2 to 3 days Within 3 to 5 days Comments: Call for follow up appointment Return if symptoms worsen DIAGNOSIS: Hyperemesis of Patient Understands: Yes - Patient/family/careg iver verbalizes understanding of instructions given Comment: [facility] ED Note - Physicianon 2022 ED Note - Physician Patient: ZOHAIB HAQUE Age: 23 years Sex: FEMALE : 2000 Associated Diagnoses: Hyperemesis of Author: Compa Blackman DO Basic Information Additional information: Chief Complaint from Nursing Triage Note : Chief Complaint 07/14/2023 18:06 EST Chief Complaint Pt reports 9wks . Has had trouble with N/V with this and previous. . States has not been able to keep anything down today. Started feeling worse last night. Given nausea meds by OB but not working well. 07/13/2023 11:29 EST Chief Complaint sore throat and congestion for 3 days . History of Present Illness 23-year-old female approximately 9 weeks to the emergency department with chief complaint of morning sickness. Patient states that she has had frequent episodes of nausea and vomiting with this . She is and had similar symptoms but states that they were worse with her first . Patient states that ENVIRONMENTAL MANAGEMENT SPECIALIST is considering putting in a Zofran pump. Patient states that she has been vomiting approximately 10 times per day. Worsened this evening so came to the emergency department. Patient states she has Zofran and Phenergan at home. Complains of mild sore throat and congestion. No fever. No abdominal pain no vaginal bleeding or discharge. Review of Systems Constitutional symptoms: Negative except as documented in HPI. Skin symptoms: Negative except as documented in HPI. Eye symptoms: Negative except as documented in HPI. ENMT symptoms: Negative except as documented in HPI. Respiratory symptoms: Negative except as documented in HPI. Cardiovascular symptoms: Negative except as documented in HPI. Gastrointestinal symptoms: Nausea, vomiting, no abdominal pain, no diarrhea, no constipation. Genitourinary symptoms: Negative except as documented in HPI. Musculoskeletal symptoms: Negative except as documented in HPI. Neurologic symptoms: Negative except as documented in HPI. Psychiatric symptoms: Negative except as documented in HPI. Health Status Allergies: Allergic Reactions (Selected) Severity Not Documented Latex- No reactions were documented. Penicillins- No reactions were documented.. Medications: (Selected) Inpatient Medications Ordered ondansetron: 4 mg = 2 mL, IV Push, Once Documented Medications Documented ondansetron 4 mg oral tablet, disintegratin mg = 1 tab(s), PO, q8hr (int), PRN: as needed for nausea/vomiting, 0 Refill(s) promethazine 12.5 mg oral tablet: 12.5 mg = 1 tab(s), PO, q4hr, PRN: for motion sickness, 60 tab(s), 0 Refill(s). Past Medical/ Family/ Social History Medical history: No active or resolved past medical history items have been selected or recorded.. Surgical history: No active procedure history items have been selected or recorded.. Family history: No family history items have been selected or recorded.. Social history: Social & Psychosocial Habits Alcohol 07/14/2023 Alcohol Use: Never Substance Use 07/13/2023 Substance use: Past Comment: pt denies use today - 06/19/2023 19:39 - ShuffCherie RN 07/14/2023 Substance use: Past Type: Marijuana Frequency: 3-5 times per week Tobacco 10/24/2021 Smoking tobacco use: Never (less than 100 in l 07/14/2023 Smoking tobacco use: Never tobacco user Electronic Cigarette/Vaping 07/13/2023 Electronic Cigarette Use: Never 07/14/2023 Electronic Cigarette Use: Never . Problem list: Active Problems (1) None . Physical Examination Vital Signs Vital Signs 07/14/2023 18:27 EST Heart Rate Monitored 76 bpm Respiratory Rate 16 br/min Systolic Blood Pressure 110 mmHg Diastolic Blood Pressure 60 mmHg SpO2 97 % 07/14/2023 18:06 EST Temperature Oral 36.5 DegC Heart Rate Monitored 104 bpm HI Respiratory Rate 16 br/min Systolic Blood Pressure 99 mmHg Diastolic Blood Pressure 55 mmHg LOW SpO2 100 % Oxygen Therapy Room air 07/13/2023 11:29 EST Temperature Temporal 36.8 DegC Peripheral Pulse Rate 90 bpm Respiratory Rate 16 br/min Systolic Blood Pressure 100 mmHg Diastolic Blood Pressure 75 mmHg SpO2 98 % Oxygen Therapy Room air BP Method Automatic . Measurements 07/14/2023 18:11 EST Weight Dosing 55.790 kg 07/14/2023 18:11 EST Height/Length Dosing 177.800 cm 07/14/2023 18:06 EST Height/Length Estimated 177.800 cm Weight Estimated 55.790 kg 07/13/2023 11:29 EST Height 177.8 cm Weight 55.79 kg Body Mass Index Measured 17.65 kg/m2 BSA Measured 1.66 m2 . General: Alert, Appears nauseated.. Skin: Warm, dry. Head: Normocephalic, atraumatic. Neck: Supple. Eye: Pupils are equal, round and reactive to light, normal conjunctiva. Ears, nose, mouth and throat: Oral mucosa moist, Lips appear slightly dry. Cardiovascular: Regular rate and rhythm, No murmur. Respiratory: Lungs are clear to auscultation, respirations are non-labored. Gastrointestinal: Soft, Nontender, Non distended. Genitourinary: No CVA ten (more content not included)... Normal [facility] ED Note-Nursingon 07-14-2023 ED Note-Nursing Pt to room Pt complains of nausea that started about 2a.. Pt states that she had hyperemesis with the last too. Pt did take Phenergan and Zofran for the nausea but thinks that she vomited up the phenergan. She last took Phenergan at 1300. EDS 02/11/23 (pt is about 9 weeks preg) Normal [facility] ED Patient Summaryon 023 ED Patient Summary [facility] - Emergency Department [address] [place] [address] PATIENT DISCHARGE INSTRUCTIONS Patient Information Name: ZOHAIB HAQUE Age: 23 Years Date of : 2000 Reason For Visit: Vomiting - ; 9 WEEKS , VOMITING Arrival Time: 07/14/2023 17:44:12 Primary Care Physician: Quiana Naranjo DO Attending Physician: Brock Watson DO Comment: Visit Diagnosis: Diagnoses This Visit Hyperemesis of (O21.0) Vomiting - ([id number]) The Pharmacy at [facility] is open Thursday through Thursday from 9A to 6P and Thursday and Thursday from 9A to 5P Prescription Information: If you have been given a prescription for narcotics, seek immediate medical attention if you have any difficulty breathing or any sudden status changes such as confusion and sleepiness. If you or anyone you know is experiencing suicidal thoughts, mental health, alcohol and/or drug addiction problems; contact the [facility] 16/03 Crisis Hotline -Text 5LNNI yr 321183. If you received any narcotics, sedation, or any other medication that causes drowsiness for the next 24 hours, unless otherwise directed: ? Do not drive a car. ? Do not operate machinery such as power tools, lawn mowers, drills, sewing machines, or stoves ? Avoid alcoholic beverages and drugs for allergies, nerves, or sleep ? Do not make important personal or business decisions or sign any legal documents With: Address: When: Follow-up with your ditching machine operator /helper driver in 2 to 3 days Within 3 to 5 days Comments: Call for follow up appointment Return if symptoms worsen Medication Information: The exam and treatment you received today in the [facility] Emergency Department were for an urgent problem and are not intended as complete care. It is important for you to follow up with a doctor, nurse practitioner, or physician?s ophthalmic assistant for ongoing care. If your symptoms become worse or you do not improve as expected and you are unable to reach your usual health care provider, you should return to the Emergency Department, we are available 24 hours a day. For those patients who have received Radiology results, the interpretation of your X-ray as given to you by our Emergency Department physician is only a preliminary report. The Radiologist will review your films and if there is a change in the diagnosis you will be notified by phone. Please make sure you have provided a working phone number so we can reach you if necessary. In the event that you had a lab culture while you were a patient in the Emergency Department, you will be notified by phone if there is a need to change your antibiotic. Please make sure you have provided a working phone number so we can reach you if necessary. [facility] Emergency Department has provided you with a complete list of medications post discharge. Please inform your sports physiologist/provider of your visit and for further instruction on these medications. Any specific questions regarding your chronic medications and dosages should be discussed with your primary care physician(s) and/or pharmacist. Medications That Were Updated - Follow Below Instructions [facility] [address] [place], [place] [id number], [phone] Updated: ondansetron (ondansetron 4 mg oral tablet) 1 tab(s) Oral every 4 hours. Refills: 2. Other Medications Updated: ondansetron (ondansetron 4 mg oral tablet, disintegrating) 1 tab(s) Oral every 8 hours as needed as needed for nausea/vomiting. Medications to Continue That Have Not Changed Other Medications promethazine (promethazine 12.5 mg oral tablet) 1 tab(s) Oral Every 4 hours as needed for motion sickness. Visit Information Allergies: Substance Reaction Symptoms Type Comments Latex penicillins Drug Vital Signs: Vitals and Measurements this Visit (last charted value for your 07/14/2023 visit) Vital Signs This Visit Temperature Oral: 36.5 DegC Heart Rate Monitored: 76 bpm Respiratory Rate: 14 br/min Systolic Blood Pressure: 108 mmHg Diastolic Blood Pressure: 68 mmHg SpO2: 98 % Oxygen Therapy: Room air Measurements This Visit Height/Length Dosin.800 cm Height/Length Estimated: 177.800 cm Weight Dosin.790 kg Weight Estimated: 55.790 kg Problems List: Problem Onset Comments None Patient Education Hyperemesis Gravidarum Hyperemesis gravidarum is a severe form of nausea and vomiting that happens during . Hyperemesis is worse than morning sickness. It may cause you to have nausea or vomiting all day for many days. It may keep you from eating and drinking enough food and liquids, which can lead to dehydration, malnutrition, and weight loss. Hyperemesis usually occurs during the first half (the first 20 weeks) of . It often goes away once a woman is in (more content not included)... Normal [facility] Extra Redon 07-14-2023 Tube Collected Yes Invalid Interpretation Code [facility] Comment on above: Performed By: #### 1 [id number], [id number], [id number], [id number], [id number], [id number] #### [facility] (DEFAULT) [address] [place] [address] ED Clinical Summaryon 2022 ED Clinical Summary [facility] ? Urgent Care [address] [place] [address] Clinical Summary PERSON INFORMATION Name: ZOHAIB HAQUE Age: 23 Years Sex: FEMALE : 2000 MRN: Acct#: Visit Reason: Throat pain - Adult; SORE THROAT, CONGESTION Arrival: 07/13/2023 11:11:30 Discharge: 07/13/2023 11:58:00 LOS: 000 00:47 Check In: 07/13/2023 11:11:30 Checkout: 07/13/2023 11:58:00 Address: [address] [place] [address] PCP: Quiana Naranjo DO PROVIDER INFORMATION Provider Role Assigned Unassigned YANIV CHAU ED PA 07/13/2023 11:13:07 Tanja Mojica SENIOR PYTHON DEVELOPER Nurse 07/13/2023 11:38:50 VITALS INFORMATION Vital Sign Triage Latest Temperature Tympanic Temperature Temporal Artery Pulse Rate O2 Sat 98 % 98 % Respiratory Rate Blood Pressure /75 mmHg /75 mmHg MEDICAL INFORMATION Medications Given: Allergy Information: penicillins; Latex PHYSICIAN DOCUMENTATION DISCHARGE INFORMATION: Discharge Disposition: Home Discharge Location: Home PATIENT EDUCATION INFORMATION Instructions: First Trimester of ; Care; Upper Respiratory Infection, Adult; Viral Respiratory Infection Follow-Up: With: Address: When: Quiana Naranjo [address] [place] [address] [facility] (1) Within 2 to 4 days Comments: Follow-up primary care provider or ditching machine operator next few days for reevaluation. Continue with supportive care with plenty of rest and fluids, Tylenol for aches and pains. Use honey as a natural cough suppressant, Vicks baby rub for congestion, salt water gargle to help soothe your throat. If you are having any worsening issues such as chest pains, shortness of breath, high spiking fevers or any other problems you may return or go directly to the emergency department. DIAGNOSIS: Nasal congestion Patient Understands: Yes - Patient/family/careg iver verbalizes understanding of instructions given Comment: Normal [facility] ED Patient Summaryon 023 ED Patient Summary [facility] ? Urgent Care [address] [place] [address] PATIENT DISCHARGE INSTRUCTIONS Patient Information Name: ZOHAIB HAQUE Age: 23 Years Date of : 2000 Reason For Visit: Throat pain - Adult; SORE THROAT, CONGESTION Arrival Time: 07/13/2023 11:11:30 Primary Care Physician: Quiana Naranjo DO Attending Physician: YANIV CHAU Comment: Patient Education With: Address: When: Quiana Naranjo [address] [place] [address] [facility] (1) Within 2 to 4 days Comments: Follow-up primary care provider or ditching machine operator next few days for reevaluation. Continue with supportive care with plenty of rest and fluids, Tylenol for aches and pains. Use honey as a natural cough suppressant, Vicks baby rub for congestion, salt water gargle to help soothe your throat. If you are having any worsening issues such as chest pains, shortness of breath, high spiking fevers or any other problems you may return or go directly to the emergency department. First Trimester of The first trimester of starts on the first day of your last menstrual period until the end of week 12. This is months 1 through 3 of . A week after a sperm fertilizes an egg, the egg will implant into the wall of the uterus and begin to develop into a baby. By the end of 12 weeks, all the baby's organs will be formed and the baby will be 2?3 inches in size. Body changes during your first trimester Your body goes through many changes during . The changes vary and generally return to normal after your baby is born. Physical changes ? You may gain or lose weight. ? Your breasts may begin to grow larger and become tender. The tissue that surrounds your nipples (areola) may become darker. ? Dark spots or blotches (chloasma or mask of ) may develop on your face. ? You may have changes in your hair. These can include thickening or thinning of your hair or changes in texture. Health changes ? You may feel nauseous, and you may vomit. ? You may have heartburn. ? You may develop headaches. ? You may develop constipation. ? Your gums may bleed and may be sensitive to brushing and flossing. Other changes ? You may tire easily. ? You may urinate more often. ? Your menstrual periods will stop. ? You may have a loss of appetite. ? You may develop cravings for certain kinds of food. ? You may have changes in your emotions from day to day. ? You may have more vivid and strange dreams. Follow these instructions at home: Medicines ? Follow your health care provider's instructions regarding medicine use. Specific medicines may be either safe or unsafe to take during . Do not take any medicines unless told to by your health care provider. ? Take a vitamin that contains at least 600 micrograms (mcg) of folic acid. Eating and drinking ? Eat a healthy diet that includes fresh fruits and vegetables, whole grains, good sources of protein such as meat, eggs, or tofu, and low-fat dairy products. ? Avoid raw meat and unpasteurized juice, milk, and cheese. These carry germs that can harm you and your baby. ? If you feel nauseous or you vomit: ? Eat 4 or 5 small meals a day instead of 3 large meals. ? Try eating a few soda crackers. ? Drink liquids between meals instead of during meals. ? You may need to take these actions to prevent or treat constipation: ? Drink enough fluid to keep your urine pale yellow. ? Eat foods that are high in fiber, such as beans, whole grains, and fresh fruits and vegetables. ? Limit foods that are high in fat and processed sugars, such as fried or sweet foods. Activity ? Exercise only as directed by your health care provider. Most people can continue their usual exercise routine during . Try to exercise for 30 minutes at least 5 days a week. ? Stop exercising if you develop pain or cramping in the lower abdomen or lower back. ? Avoid exercising if it is very hot or humid or if you are at high altitude. ? Avoid heavy lifting. ? If you choose to, you may have sex unless your health care provider tells you not to. Relieving pain and discomfort ? Wear a good support bra to relieve breast tenderness. ? Rest with your legs elevated if you have leg cramps or low back pain. ? If you develop bulging veins (varicose veins) in your legs: ? Wear support hose as told by your health care provider. ? Elevate your feet for 15 minutes, 3?4 times a day. ? Limit salt in your diet. Safety ? Wear your seat belt at all times when driving or riding in a car. ? Talk with your health care provider if someone is verbally or physically abusive to you. ? Talk with your health care provider if you are feeling sad or have thoughts of hurting yourself. Lifestyle ? Do not use hot tubs, steam rooms, or saunas. (more content not included)... Normal [facility] Strep Aon 07-13-2023 Strep procedure control Pass Normal [facility] Comment on above: Performed By: #### 6 [id number] ####[facility] (DEFAULT)[address] [place] [address] Streptococcus A Negative Normal Negative [facility] Comment on above: Performed By: #### 6 [id number] ####[facility] (DEFAULT)[address] [place] [address] Urgent Care Note- Provideron 07-13-2023 Urgent Care Note- Provider Patient: ZOHAIB HAQUE Age: 23 years Sex: FEMALE : 2000 Associated Diagnoses: Nasal congestion Author: NATANAEL MCMILLAN, YANIV Nascimento Subjective Patient is a 23-year-old female 2 para 1 currently 9 weeks , with complaint of nasal congestion, postnasal drip and sore throat. Patient indicates she started with nasal congestion and postnasal drip 2 days ago. States that she is now having mild sore throat. She denies any trouble breathing or swallowing, chest discomforts, cough, abdominal pains, vaginal bleeding. States she was having hyperemesis gravidarum but is currently on Zofran and Phenergan keeping fluids down without any issues. Health Status Allergies: Allergic Reactions (Selected) Severity Not Documented Latex- No reactions were documented. Penicillins- No reactions were documented. Problem list (past medical history): All Problems None / SNOMED CT [id number] / Confirmed Objective CONST: -Well-developed well-nourished. -Acute distress: No -Vitals: reviewed. SKIN: -Gross abnormalities: No EYES: -EOM intact, NASIM: -Sclera conjunctiva: Unremarkable. ENT: -Pharynx pink and moist uvula midline tolerating oral secretions without any problems. No tripoding or hot potato voice appreciated NECK: -Supple (qwtf-in-owxov): non-tender. CARD: -Rate and rhythm: Regular RESP: -Respiratory effort and chest excursion with respirations: Normal -Breath sounds equal bilaterally: Clear -Wheezes: No -Rales: No ABD: -Distended: No -Deep palpation: Non-tender, soft, no guarding or rebound tenderness NEURO: -Patient: alert -Oriented to: person, place and time. -Appearance and judgment: appropriate. Results Review Results review Lab results: 07/13/2023 11:30 EST Streptococcus A Negative Impression and Plan Assessment and Plan: Diagnosis: Nasal congestion ([id number] R09.81). Orders Orders Laboratory: Rapid Strep (Order): Swab, 07/13/2023 11:33 EST, Stat collect, Nurse collect. . 23-year-old female presenting to urgent care with complaint of nasal congestion postnasal drip and sore throat. Patient strep swab is negative. I offered COVID influenza swab she declined indicated she did not feel this was necessary. Indicated to the patient I would recommend continue supportive care discussed supportive care measures with her. Told to follow-up with her ditching machine operator next few days return for any worsening issues or go directly to the emergency department. Patient indicated she understood was in agreement. Patient is stable will be discharged [Electronically Signed on: 07/13/2023 11:49 EST] YANIV CHAU [Verified on: 07/13/2023 11:49 EST] YANIV CHAU Patient's strep swab returns positive for strep pyogenes group A, patient is reported to be as per chart, she has an allergy to penicillin so we will start her on azithromycin. Prescription has been electronically sent to [facility] pharmacy. Orders provided to nurse she will contact patient. [Electronically Signed on: 07/15/2023 09:16 EST] Jadiel Swift [facility] [place] 023 Urgent Care Record [facility] ? Urgent Care [address] [place] [address] PATIENT DISCHARGE INSTRUCTIONS Patient Information Name: ZOHAIB HAQUE Age: 23 Years Date of : 2000 Reason For Visit: Throat pain - Adult; SORE THROAT, CONGESTION Arrival Time: 07/13/2023 11:11:30 Primary Care Physician: Quiana Naranjo DO Attending Physician: YANIV CHAU Comment: Visit Diagnosis: Diagnoses This Visit Nasal congestion (R09.81) Throat pain - Adult ([id number]) If you received any narcotics, sedation, or any other medication that causes drowsiness for the next 24 hours, unless otherwise directed: ? Do not drive a car. ? Do not operate machinery such as power tools, lawn mowers, drills, sewing machines, or stoves ? Avoid alcoholic beverages and drugs for allergies, nerves, or sleep ? Do not make important personal or business decisions or sign any legal documents With: Address: When: Quiana Naranjo [address] [id number] Business (1) Within 2 to 4 days Comments: Follow-up primary care provider or ditching machine operator next few days for reevaluation. Continue with supportive care with plenty of rest and fluids, Tylenol for aches and pains. Use honey as a natural cough suppressant, Vicks baby rub for congestion, salt water gargle to help soothe your throat. If you are having any worsening issues such as chest pains, shortness of breath, high spiking fevers or any other problems you may return or go directly to the emergency department. Medication Information: The exam and treatment you received today in the [facility] Care were for an urgent problem and are not intended as complete care. It is important for you to follow up with a doctor, nurse practitioner, or physician?s ophthalmic assistant for ongoing care. If your symptoms become worse or you do not improve as expected and you are unable to reach your usual health care provider, you should return to the Emergency Department, we are available 24 hours a day. For those patients who have received Radiology results, the interpretation of your X-ray as given to you by our Urgent Care physician is only a preliminary report. The Radiologist will review your films and if there is a change in the diagnosis you will be notified by phone. Please make sure you have provided a working phone number so we can reach you if necessary. In the event that you had a lab culture while you were a patient in the Urgent Care, you will be notified by phone if there is a need to change your antibiotic. Please make sure you have provided a working phone number so we can reach you if necessary. [facility] has provided you with a complete list of medications post discharge. Please inform your sports physiologist/provider of your visit and for further instruction on these medications. Any specific questions regarding your chronic medications and dosages should be discussed with your primary care physician(s) and/or pharmacist. Additional medications on your home medication list not specifically addressed. Please contact the ordering physician if you have questions about these medications. doxylamine-pyridoxin e (Diclegis 10 mg-10 mg oral delayed release tablet) 2 tab(s) Oral once a day (at bedtime). Refills: 0. ondansetron (ondansetron 4 mg oral tablet, disintegrating) 1 tab(s) Oral every 8 hours as needed as needed for nausea/vomiting. Visit Information Allergies: Substance Reaction Symptoms Type Comments Latex penicillins Drug Vital Signs: Vitals and Measurements this Visit (last charted value for your 07/13/2023 visit) Vital Signs This Visit Temperature Temporal: 36.8 DegC Peripheral Pulse Rate: 90 bpm Respiratory Rate: 16 br/min Systolic Blood Pressure: 100 mmHg Diastolic Blood Pressure: 75 mmHg SpO2: 98 % Oxygen Therapy: Room air Blood Pressure Method: Automatic Measurements This Visit Height/Length Measured: 177.8 cm Weight Measured: 55.79 kg Body Mass Index: 17.65 kg/m2 BSA Measured: 1.66 m2 Problems List: Problem Onset Comments None Patient Education First Trimester of The first trimester of starts on the first day of your last menstrual period until the end of week 12. This is months 1 through 3 of . A week after a sperm fertilizes an egg, the egg will implant into the wall of the uterus and begin to develop into a baby. By the end of 12 weeks, all the baby's organs will be formed and the baby will be 2?3 inches in size. Body changes during your first trimester Your body goes through many changes during . The changes vary and generally return to normal after your baby is born. Physical changes ? You may gain or lose weight. ? Your breasts may begin to grow larger and become tender. The tissue that surrounds your nipples (areola) may beco (more content not included)... [facility] Coding Summaryon 07-11-2023 Coding Summary HTMLBase 64 KuuycjusDSa3kFu+PGhl YWQ+GZ5MMRXtC51kuWDp kW8cE2MBVJrKCqgrBFZU UFfQFsIvfzPkCF0ofAPp ZXJu IC8+CO1tACMaPjnyvBSe h0N2sMR8D29tyx7tUTvc hOG8SDVcVvUplrpxy6rl pPz0SRmyGdsfHmQx MIGqzL74PDN9vF95On61 aUUrmXVzz1gctGb8RxKf KBEkMBP6vBseCNrdg0Sa AUWqF78dtHUpm1K6 IGNvbGxhcHNlOyBlbXB0 hV6yTKzactgwn7ovrrma Acb9zd90nQJyu4A1xKI6 M4OxmjU5IUWagDTz HcqepVLDiZ7zsfjtu7zq zjjwUeNoSUKoETa6DYm8 GDEumErgSvHgAC49XDV9 LGOjtzYlX1HvIKNn cNvnJmP2u2Q9Ap3KM4HE TlucF6DJEZZXMMbkkRQ+ DG06my53F0JmJdaoCoy1 HOIwYLN3jXD6vY3f GDElLChkl8X7aMT2L8Gq pzDhis0mx8ymQCHzGZcf G30beQWcr0J4GHPfzSF5 XBYuhYfoDaStgI97 Oyc+WXFafRcvf9LxInry n5hvn4izkNe7ZbltHMUh jaDilMryWEY0l5KtGy5f HDUofOX3qQQ1rG2g VfPgYbY3QJqsH578WpCk nGOzPzcvH53qC6NttZJ+ VVJbQag8IOVmiTprYM1d A2SvZVVgfjbwpMVy wIztTM8uCNLbpfogLCWe bM5rAETyB7v3EcQgUdX5 IMniL2QlWAJhumjlQp31 yD3eQjHxPkW3MRmf L0WuwzS8NZKigRCgKLyo CFD5W65qz9Y2QCSzFLFr POG0yTI1hW6auLnatbem bGVmdDsgdmVydGlj SNfqUPspJ222NCSdnDax PkNvZGluZyBEYXRlOiAg MTEvMTgvMjAyMzwvdGQ+ ZLYaFIG8bYpsDNMp vAYeHKwwCw9abHdqeJmw CO3bZPCynqvgTXJykM0b VZNheFAbkFxdCD9hKJSu voppy089JfJfVTF9 HACcbWEbU2KpeK9rApFp TKDgGYJaE8SkdXGfZQdk A253QGzpTgJ0JIQzawHy I9SvZBAtmMsfQcM8 c1W2Ti6Vg7EehwwxB7Ly dZYaDdQlYdgzCNr9A8Am PjwvdHI+XI98PHRzAQ48 EAg2OAM8lOgsUEgb KXGzX2MfjY4eKdGqPDQc ZGRkOyc+PHRhYmxlIHdp ZHRoPScxMDAlJyBzdHls YN2eWj1sOTQfUXZc jQnrbEJeBnPkh1otIVCq JUkgYT5bqDjbK3HfkNH2 DBBqg3f7Kv95P06lU7Dp dXA+NHTowIV2bIV3 hM6qCyRaWkL6TTzrE745 OiWdrPRvIugju9dxs6tn sCd6QmN0QODwgoGfiHip UZL8e7ZlJv03B39m IHdpZHRoPSIxNSUiIHZh kNsdsc3ymY4nQw1+PGNv mUH6hHH9oG2iDsXnKvI4 DXrsE708KiQhlBUm Eiikl5tev1ipwIy2RcXm JOVzbuTglWgtLPM8l1Cf La41A9DwuWwrw1OxDcn0 rb73zVUxw9O3sXQ5 V5GkZTKjsqcctOLsmCap DI1uVAIjbvrtWCYpnE2c YVCuY2m2LxXcNzJ9ARdd C3JiknF2TWYpoFIe PKQccDQFgX3cozzon2hz dpczWaFfJTAjJOr2HYf2 PDHpiIpbErQwOZD0BoT9 XMJ2pLIkmF2cvHop vljpuY6dUiq+FFU5iDGc vALUGV2jDlbijVM+PHRk URT8uFzvVEqpQSTlsL6w QHNfV8x4AhYaOkY8 KJzyX9GuwyD5YARymJUj EMEyaHGYwN4oocnoj7bl txzqGaOcBWMjGNv4NZz6 LWFsaWduOiBsZWZ0 BeH5NFG5vAHesB9hzFaz gkqvnD4pZch+QmlydGgg PDL9IMx9U0HxJkq2AOQv wDegNK0luIApAUxy Iw7ijAkfhJweAB2uRVOi igcwf491KhByr4mgBMAs lFXcAGbgXBT4F84il3F2 PGEfJCGpHGJ0hFV8 rG3usMovkekrbBJlcTrn qxMwwVryXPllESotI449 LDRcbHdyAfMcWLd9V1Ae Loz0JIYykKffPD5u bWMnZYzrTo6jtSfstYoe RL6wVCBmoalvx466JkRe n1cuKCDukPJvWDooSOY0 K52qt4P2KYEcVZBx BRO1zHX7yD3flCjmiddv bGVmdDsgdmVydGljYWwt YEkzE747DMBirEpnBlLd qLg0J5BcSkz3NNQm nQfxBI1yiUAmNYjiPm6b qRjliFkaXS4gSQFeddjq c343PcLtx9niNRKyeKDq RTxnUAN1E89pa1T7 TJWoQFHrBAU0mWN3jS2f bGlnbjogbGVmdDsgdmVy gQvsASanJQufQ262GJDc cDsnPlBhdGllbnQg HYibOOv5I7SyVkezmYN+ QB88VNOzTR37bEJnvABq u8iwkLl3MmCeRQOtMDY4 uZjsMKgdn0NrDJQv V42gjOAtq5L2HPIsjSsb bHIsEcYwwMR7rI0hLTye trhhw6xlpbwtOkgwj0ua vp91jO17H85pXMwm ZHRoPSIzMCUiIHZhbGln vw4zpM4fDk7+PGNvbCB3 jJI1eM4qOBCcUyI3AYkb Q546QnEehUAwPsah g0zla4pyeMi9WaU2OEPf dvKjaXlxQRK8h7SaNg80 B12aYAuhWPYmSHYsVVIe CNWxhRfezt4jlN6z Ii8+PGKqhWT8eJM3lO8l YvBjVkO1VBocT504JwLj nHGdYzclT36gD3EfsAQ+ WCRzEqn6ZWFojCxr XL3fxJStFOsmTi1jPHP5 ViZtGfHhUBbsO9ArONOt fhuvzbrfyBE6PXMzDOYx zY90Mg7rlRuuZFQf sXUZvS8okuxpv0bwazhx JrPgNGDcFCw4FHl1QCDj kAooKqXrVZF1PdC7DKB2 fAJnbN3acWwurzea fI2sN1SwEKApbhctNj46 hM5xHcNyEfV7NRsiGaz+ O1YLR1yzHB3PYnnRNqJY ECMYM6GPND27PL94 bRZsd6K2sFE9P0DcHMPd oeewsszrdKP5ACPiIBUa cB17kMWaVMteVz9fh9O5 t354SQKyAXKxcL19 Iz4fuQijBTYwmDPEmY9z yjlen8kdmxuaNyGaUQTf SXv6BKk0AFVvlAheIzLo MMY7CdV0DYY8yPKw oG8qeTypewckdM3jWgz+ MTAvMjMvMjAwMTwvdGQ+ TALyMLZ4mUctFPpaGAYq pO3hQBYlP3a6QkRs VyX5QNqxU1HqZHDezpxx Ji31pU6rIaHiEyN9GOpr G3KlbhX6MBGrdUIwJEad CHD4E72lh5L4NTGm DLFsQHM1hUI5lG8lhAny bjogbGVmdDsgdmVydGlj OPqyIJliM403AQThoXzy SpJlHOatMYLlEE29 TK92aRJrj1S5wSB9C7Jn JRAphxoiljjaaVP7TRNk JRZzbX92ySPcDNumSl3t k0W2d978ZKYpWPRz mX60Xv2uxRxtVTCazKXQ tS1icepxg8tfrtefTpSi NPSvBUf5WXi8LOUbqLyo ZuPgBSI8GxW2GCG5 gNQxdJ6iqNvvfphrwU4c Oyc+XjOXEYwKEE33TM24 zYTvc8U5tGS8S3WiRPUx mokhuqqwzBM6HLCj TLVyfL82vKJeWCewGc4e o0A3j066FJArBTYngG21 Wk9aoFpsTFVqeIIUzJ1p lheax7dxftirUlCt OPFbGYm5QBq9OXTtyKav UeOuRUE4DpH7RKY5sKRp hJ1qsWlgzsxbyZ8aPtc+ SD2fvvxwjbA8MC82 LT36Z2KnJmytbQRosIJ+ PHRhYmxlIHdpZHRoPScx RJJsBaZttHpxSY8rVs2w ZGVyLWNvbGxhcHNl DjZww0uqKULpBLhmFH5f wSzwT0SqtYE1CGKem6n7 Ip67X90nI6NamET+PGNv wGN7iLW4sJ0sRiRd ZwF2VSydF278WbWveQBm Qzmpn8vws2tbtTv5AeXs CGLlbzHwpQfbVGZ4n7Xb Dh12I75lYDjcQCZu LJUvDQAxBGEyxYakfv1b eA5eKo1+JUXfwCQ3rZA3 qB5jDmMvJiF3GShwV672 IoGdrVBzAqojR81p H8PntMP+VBUtVml7KUHk iXhkPP1ijOCeDVokIs7f OMT7HsOiOoNaBWlqU0Qg ZGRpbmctcmlnaHQ6 XWTsTUSgcH50Rr1xuVoa Ss8aJMNiKNX9LVSmyNZv M0JdfY0nEnFtCLQwYYCb H1JleJNxUCucX795 ZUjwKxF1XFGluiAzJ1Nw IQKloTeeTvN2t3J6Bm9R iRypxLEdEG1lCsWkJSh9 W9TcGnp9UEFaaNas FS9fwXFmXLfmWc0vxOde kRpxIN6dNWSugfant119 MoDog2gkEZLrnUIsCGwd NHL6K23vb0F4ULAs STXlNXU1xTL6oG7dnAvt bjogbGVmdDsgdmVydGlj VDbzQNehV093IHThgIkd WeOLNem6S6DoQpl0 FTVhoFyeRC0jkJYfAJbz If9aqJpepGboIF1eVLSj zirat910SwQkb2gwOKGq eJYaPRejXVZ3H46p i8G2XUWcAEByISX0rNG8 fY2xxLtxbkwhwVDyqYoc meOzaSzkQCfnIZfsD273 GUYtbNjkHu7MIxw3 R6KgEud6SAStzMkiVJ9a nPFcUUtzWz7ukLebfBll MQ8jJHGlgekbr106PfGc a8prFOAboFXjDYsa XBF5N00ys3F9RWAjLUWt QHO3eXQ5eN2dwHtywnjn bGVmdDsgdmVydGljYWwt FHnmR192CBCxqZnl PlBheWVyOjwvdGQ+PC90 ab91K7EfTjdsHmi8IEKy VFN9rNO6xT0kFDCdXZbw c9D6uAA1Y8EjxzPl ci1 (more content not included)... [facility] .Auto Diff 07-06-2023 Auto [place] % 6 % Normal 1-12 [facility] Comment on above: Performed By: #### 1 [id number], [id number], [id number], [id number], [id number] ####[facility] (DEFAULT)[address] [place] [address] 98307 Baso Abs# 0.0 x10 Normal 0.0-0.2 [facility] Comment on above: Performed By: #### 1 [id number], [id number], [id number], [id number], [id number] ####[facility] (DEFAULT)[address] [place] [address] 42231 Basophils/100 WBC (Bld) 0.2 % Normal 0.2-2.0 [facility] Comment on above: Performed By: #### 1 [id number], [id number], [id number], [id number], [id number] ####[facility] (DEFAULT)[address] [place] [address] 53012 Eos Abs# 0.0 x10 Normal 0.0-0.4 [facility] Comment on above: Performed By: #### 1 [id number], [id number], [id number], [id number], [id number] ####[facility] (DEFAULT)[address] [place] [address] 86814 Eosinophils/100 WBC (Bld) 0.5 % Low 0.9-4.0 [facility] Comment on above: Performed By: #### 1 [id number], 4738476, [id number], [id number], [id number] ####[facility] (DEFAULT)[address] [place] [address] 27922 Lymph Abs# 0.6 x10 Low 1.3-2.9 [facility] Comment on above: Performed By: #### 1 [id number], [id number], [id number], [id number], [id number] ####[facility] (DEFAULT)[address] [place] [address] 85322 Lymphocytes/100 WBC (Bld) 10 % Low 14-48 [facility] Comment on above: Performed By: #### 1 [id number], [id number], [id number], [id number], [id number] ####[facility] (DEFAULT)[address] [place] [address] [place] Abs# 0.4 x10 Normal 0.0-0.8 [facility] Comment on above: Performed By: #### 1 [id number], 1602431, [id number], [id number], [id number] ####[facility] (DEFAULT)[address] [place] [address] Neut Abs# 5.4 x10 Normal 1.5-9.2 [facility] Comment on above: Performed By: #### 1 [id number], 7077958, [id number], [id number], [id number] ####[facility] (DEFAULT)[address] [place] [address] Neutrophils/100 WBC (Bld) 83 % Normal 44-88 [facility] Comment on above: Performed By: #### 1 [id number], [id number], [id number], [id number], [id number] ####[facility] (DEFAULT)[address] [place] [address] CBC w/ Auto Diffon 3 Erythrocyte distribution width (RBC) [Ratio] 14.0 % Normal 11.5-15.0 [facility] Comment on above: Performed By: #### 1 [id number], 0948210, [id number], [id number], [id number] ####[facility] (DEFAULT)[address] [place] [address] Hematocrit (Bld) [Volume fraction] 40.9 % High 33.7-40.4 [facility] Comment on above: Performed By: #### 1 [id number], 8958437, [id number], [id number], [id number] ####[facility] (DEFAULT)[address] [place] [address] Hemoglobin (Bld) [Mass/Vol] 13.8 g/dL Normal 11.3-15.9 [facility] Comment on above: Performed By: #### 1 [id number], 1992186, 0855138214, [id number], [id number] ####[facility] (DEFAULT)[address] [place] [address] 15492 MCH (RBC) [Entitic mass] 29 pg Normal 24-34 [facility] Comment on above: Performed By: #### 1 [id number], 8821390, 0839562983, [id number], [id number] ####[facility] (DEFAULT)[address] [place] [address] 30155 MCHC (RBC) [Mass/Vol] 34 g/dL Normal 26-37 [facility] Comment on above: Performed By: #### 1 [id number], 1426227, [id number], [id number], [id number] ####[facility] (DEFAULT)[address] [place] [address] 85213 MCV (RBC) [Entitic vol] 85 fL Normal 81-100 [facility] Comment on above: Performed By: #### 1 [id number], 4933890, 7348182744, [id number], [id number] ####[facility] (DEFAULT)[address] [place] [address] 23963 Platelet 178 x10 Normal 138-427 [facility] Comment on above: Performed By: #### 1 [id number], 0940568, [id number], [id number], [id number] ####[facility] (DEFAULT)[address] [place] [address] 47500 Platelet mean volume (Bld) [Entitic vol] 11.5 fL High 6.3-10.2 [facility] Comment on above: Performed By: #### 1 [id number], 8543259, 8541218898, [id number], [id number] ####[facility] (DEFAULT)[address] [place] [address] RBC 4.79 x10 Normal 3.70-5.30 [facility] Comment on above: Performed By: #### 1 [id number], 2657094, [id number], [id number], [id number] ####[facility] (DEFAULT)[address] [place] [address] 49151 WBC 6.5 x10 Normal 3.5-10.5 [facility] Comment on above: Performed By: #### 1 [id number], 0147891, [id number], [id number], [id number] ####[facility] (DEFAULT)[address] [place] [address] 70335 Man Diff? Auto Invalid Interpretation Code [facility] Comment on above: Performed By: #### 1 [id number], 5056616, [id number], [id number], [id number] ####[facility] (DEFAULT)[address] [place] [address] 87755 CMP Standardon 07-06-2023 eGFR Non AA >60 Invalid Interpretation Code [facility] Comment on above: Performed By: #### 1 [id number], 7111717, [id number], [id number], [id number] ####[facility] (DEFAULT)[address] [place] [address] 05619 eGFR AA >60 Invalid Interpretation Code [facility] Comment on above: Performed By: #### 1 [id number], 0551775, [id number], [id number], [id number] ####[facility] (DEFAULT)[address] [place] [address] 93254 Albumin [Mass/Vol] 4.5 g/dL Normal 3.5-5.0 [facility] Comment on above: Performed By: #### 1 [id number], 3368145, [id number], [id number], [id number] ####[facility] (DEFAULT)[address] [place] [address] 23920 Alk Phos 46 IU/L Normal 32-91 [facility] Comment on above: Performed By: #### 1 [id number], 7351833, [id number], [id number], [id number] ####[facility] (DEFAULT)[address] [place] [address] 05712 ALT [Catalytic activity/Vol] 19.0 U/L Normal 14.0-54.0 [facility] Comment on above: Performed By: #### 1 [id number], 7061397, [id number], [id number], [id number] ####[facility] (DEFAULT)[address] [place] [address] 90947 AST [Catalytic activity/Vol] 22 U/L Normal 15-41 [facility] Comment on above: Performed By: #### 1 [id number], 5554636, [id number], [id number], [id number] ####[facility] (DEFAULT)[address] [place] [address] 07119 Bili Total 0.6 mg/dL Normal 0.3-1.2 [facility] Comment on above: Performed By: #### 1 [id number], 6603610, [id number], [id number], [id number] ####[facility] (DEFAULT)[address] [place] [address] 61208 Calcium [Mass/Vol] 9.1 mg/dL Normal 8.9-10.3 [facility] Comment on above: Performed By: #### 1 [id number], 7760658, [id number], [id number], [id number] ####[facility] (DEFAULT)[address] [place] [address] 78697 Chloride [Moles/Vol] 106 mmol/L Normal 101-111 [facility] Comment on above: Performed By: #### 1 [id number], 7658326, [id number], [id number], [id number] ####[facility] (DEFAULT)[address] [place] [address] 33482 CO2 [Moles/Vol] 21 mmol/L Normal 21-32 [facility] Comment on above: Performed By: #### 1 [id number], 2113237, [id number], [id number], [id number] ####[facility] (DEFAULT)[address] [place] [address] 32435 Creatinine [Mass/Vol] 0.70 mg/dL Normal 0.60-1.30 [facility] Comment on above: Performed By: #### 1 [id number], 0693063, [id number], [id number], [id number] ####[facility] (DEFAULT)[address] [place] [address] 48862 Glucose [Mass/Vol] 90.0 mg/dL Normal 74.0-118.0 [facility] Comment on above: Performed By: #### 1 [id number], 7716112, [id number], [id number], [id number] ####[facility] (DEFAULT)[address] [place] [address] 89579 Potassium [Moles/Vol] 3.5 mmol/L Low 3.6-5.1 [facility] Comment on above: Performed By: #### 1 [id number], 8996924, [id number], 1249522253, [id number] ####[facility] (DEFAULT)[address] [place] [address] 26550 Protein [Mass/Vol] 7.7 g/dL Normal 6.5-8.1 [facility] Comment on above: Performed By: #### 1 [id number], 7772266, [id number], [id number], [id number] ####[facility] (DEFAULT)[address] [place] [address] 78732 Sodium [Moles/Vol] 132.0 mmol/L Low 136.0-144.0 [facility] Comment on above: Performed By: #### 1 [id number], 8320652, [id number], [id number], [id number] ####[facility] (DEFAULT)[address] [place] [address] 31894 Urea nitrogen [Mass/Vol] 10 mg/dL Normal 8-26 [facility] Comment on above: Performed By: #### 1 [id number], 8410115, 2146691894, [id number], [id number] ####[facility] (DEFAULT)[address] [place] [address] 22088 Albumin/Globulin [Mass ratio] 1.4 {ratio} Normal 1.4-2.6 [facility] Comment on above: Performed By: #### 1 [id number], 9509393, [id number], 7445398564, [id number] ####[facility] (DEFAULT)[address] [place] [address] 19285 Anion gap [Moles/Vol] 8.5 mmol/L Normal 5.0-19.0 [facility] [facility] Comment on above: Performed By: #### 1 [id number] ####[facility] (DEFAULT)[address] [place] [address] Globulin (S) [Mass/Vol] 3.2 g/dL Normal 1.5-4.3 [facility] Comment on above: Performed By: #### 1 [id number] ####[facility] (DEFAULT)[address] [place] [address] Osmolality 263 mOsm/L Invalid Interpretation Code [facility] Comment on above: Performed By: #### 1 [id number] ####[facility] (DEFAULT)[address] [place] [address] Urea nitrogen/Creatinine [Mass ratio] 14.2 mg/mg Normal 4.6-16.2 [facility] Comment on above: Performed By: #### 1 [id number] ####[facility] (DEFAULT)[address] [place] [address] ED Clinical Summaryon 2022 ED Clinical Summary [facility] - Emergency Department [address] [place] [id number] ED Clinical Summary PERSON INFORMATION Name: ZOHAIB HAQUE Age: 23 Years Sex: FEMALE : 2000 MRN: Acct#: Visit Reason: Vomiting - ; VOMITING, NAUSEA, 8 WEEKS Arrival: 07/06/2023 09:27:00 Discharge: 07/06/2023 13:08:00 LOS: 000 03:41 Check In: 07/06/2023 09:27:00 Checkout:07/06/2023 13:08:00 Address: [address] [place], [place] [id number] PCP: Quiana Naranjo DO PROVIDER INFORMATION Provider Role Assigned Unassigned Yuly Garland SENIOR PYTHON DEVELOPER Nurse 07/06/2023 09:30:43 Brock Watson DO ED Provider 07/06/2023 09:38:47 VITALS INFORMATION Vital Sign Triage Latest Temperature Tympanic Temperature Temporal Artery Pulse Rate O2 Sat 99 % 99 % Respiratory Rate 16 br/min 16 br/min Blood Pressure /77 mmHg /77 mmHg MEDICAL INFORMATION Medications Given: Medication Dose Route ondansetron 4 mg IV Push Allergy Information: penicillins; Latex PHYSICIAN DOCUMENTATION DISCHARGE INFORMATION: Discharge Disposition: Home Discharge Location: Home PATIENT EDUCATION INFORMATION Instructions: Morning Sickness Follow-Up: With: Address: When: Follow up with specialist Within 1 to 2 days Comments: Please keep your follow-up appoint with your ENVIRONMENTAL MANAGEMENT SPECIALIST later today As we discussed you can try Diclegis to help with the nausea and vomiting, many people have had very good success with this. If it is too expensive you can talk to your ENVIRONMENTAL MANAGEMENT SPECIALIST regarding taking the medications separately which is usually more affordable You can take the Zofran as needed for nausea Continue drinking plenty of fluids Return to the emergency department if you develop abdominal pain, vaginal bleeding or discharge, burning with urination or blood in your urine, continued nausea vomiting, lightheadedness, chest pain or shortness of breath or other worsening symptoms or concerns DIAGNOSIS: 1:Nausea and vomiting in Patient Understands: Yes - Patient/family/careg iver verbalizes understanding of instructions given Comment: Normal [facility] ED Patient Summaryon 023 ED Patient Summary [facility] - Emergency Department [address] [place] [address] PATIENT DISCHARGE INSTRUCTIONS Patient Information Name: ZOHAIB HAQUE Age: 23 Years Date of : 2000 Reason For Visit: Vomiting - ; VOMITING, NAUSEA, 8 WEEKS Arrival Time: 07/06/2023 09:27:00 Primary Care Physician: Quiana Naranjo DO Attending Physician: Brock Watson DO Comment: Visit Diagnosis: Diagnoses This Visit Nausea and vomiting in (O21.9) Vomiting - ([id number]) The Pharmacy at [facility] is open Thursday through Thursday from 9A to 6P and Thursday and Thursday from 9A to 5P Prescription Information: If you have been given a prescription for narcotics, seek immediate medical attention if you have any difficulty breathing or any sudden status changes such as confusion and sleepiness. If you or anyone you know is experiencing suicidal thoughts, mental health, alcohol and/or drug addiction problems; contact the [facility] 16/03 Crisis Hotline -Text 6LJFE to 030106. If you received any narcotics, sedation, or any other medication that causes drowsiness for the next 24 hours, unless otherwise directed: ? Do not drive a car. ? Do not operate machinery such as power tools, lawn mowers, drills, sewing machines, or stoves ? Avoid alcoholic beverages and drugs for allergies, nerves, or sleep ? Do not make important personal or business decisions or sign any legal documents With: Address: When: Follow up with specialist Within 1 to 2 days Comments: Please keep your follow-up appoint with your ENVIRONMENTAL MANAGEMENT SPECIALIST later today As we discussed you can try Diclegis to help with the nausea and vomiting, many people have had very good success with this. If it is too expensive you can talk to your ENVIRONMENTAL MANAGEMENT SPECIALIST regarding taking the medications separately which is usually more affordable You can take the Zofran as needed for nausea Continue drinking plenty of fluids Return to the emergency department if you develop abdominal pain, vaginal bleeding or discharge, burning with urination or blood in your urine, continued nausea vomiting, lightheadedness, chest pain or shortness of breath or other worsening symptoms or concerns Medication Information: The exam and treatment you received today in the [facility] Emergency Department were for an urgent problem and are not intended as complete care. It is important for you to follow up with a doctor, nurse practitioner, or physician?s ophthalmic assistant for ongoing care. If your symptoms become worse or you do not improve as expected and you are unable to reach your usual health care provider, you should return to the Emergency Department, we are available 24 hours a day. For those patients who have received Radiology results, the interpretation of your X-ray as given to you by our Emergency Department physician is only a preliminary report. The Radiologist will review your films and if there is a change in the diagnosis you will be notified by phone. Please make sure you have provided a working phone number so we can reach you if necessary. In the event that you had a lab culture while you were a patient in the Emergency Department, you will be notified by phone if there is a need to change your antibiotic. Please make sure you have provided a working phone number so we can reach you if necessary. [facility] Emergency Department has provided you with a complete list of medications post discharge. Please inform your sports physiologist/provider of your visit and for further instruction on these medications. Any specific questions regarding your chronic medications and dosages should be discussed with your primary care physician(s) and/or pharmacist. New Medications [facility] [address] [place], [place] [id number], [phone] doxylamine-pyridoxin e (Diclegis 10 mg-10 mg oral delayed release tablet) 2 tab(s) Oral once a day (at bedtime). Refills: 0. ondansetron (ondansetron 4 mg oral tablet, disintegrating) 1 tab(s) Oral Every 8 hours as needed as needed for nausea/vomiting. Refills: 0. Additional medications on your home medication list not specifically addressed. Please contact the ordering physician if you have questions about these medications. ondansetron (ondansetron 4 mg oral tablet, disintegrating) 1 tab(s) Oral every 8 hours as needed as needed for nausea/vomiting. Visit Information Allergies: Substance Reaction Symptoms Type Comments Latex penicillins Drug Vital Signs: Vitals and Measurements this Visit (last charted value for your 07/06/2023 visit) Vital Signs This Visit Temperature Oral: 36.8 DegC Heart Rate Monitored: 85 bpm Respiratory Rate: 16 br/min Systolic Blood Pressure: 103 mmHg Diastolic Blood Pressure: 77 mmHg SpO2: 99 % Oxygen Therapy: Room air Measurements This Visit (more content not included)... Normal [facility] Extra [facility] 07-06-2023 Tube Collected Yes Invalid Interpretation Code [facility] Comment on above: Performed By: #### 1 [id number] ####[facility] (DEFAULT)[address] [place] [address] Extra [place] 07-06-2023 Tube Collected Yes Invalid Interpretation Code [facility] Comment on above: Performed By: #### 1 [id number] ####[facility] (DEFAULT)[address] [place] [address] Coding Summaryon 06-24-2023 Coding Summary HTMLBase 64 AudyrpkpXXa8xTq+PGhl YWQ+MB9SERMbX07qaWSl hU3nQ4WDRZjLDekiPSUN OFpKGfTiafQbCS4cfFZc ZXJu IC8+HQ9gAMXvUevgnEZg a6T6fQF2L19sfx9iOLtt hVX8YWZyNpWnmqchp4fp iQj4XStmGmzzRrZk EIQnjX65ZCO9tF85Gb33 pXBtjXQer0zfuEn1YuCh JNBhFGV6xUpgIYjuz2Yt ZEZrN31zjJCeh9L8 IGNvbGxhcHNlOyBlbXB0 qM5tGUntlnbbo7nbbear Sqt4ue01dAPvv6D6yYM5 U0WwfhX7HETxjRBk QgajbFQKqB0ifigkj7wp hmslHzIpGWTmOXa6OOe2 GKYweLpnKtNlAF57PFK2 DCTjxbNpT0JiWITc rNlqMoV8d5Z7Hu7UA5QW JirgR5IONFTMAOwogZX+ AJ21an09U8YmLbecHti9 QDJuBUF7qMB4oL2h VRXbBCdzw5T4pBY5I1Ac fhKuey0lw4jjRAKdLFnz Q88lxHXol0X7PFPtfZR4 MOOgqQylQqGwgW42 Oyc+MGIxrKxzh4IaEyzv m3dho4zjuMo9JxhoXWVq wyLadSfzJIF5a7XeZm4w NFSwmWY9kZN4yV1b VyXzWxM8BKdfV218ShAh rIGkRgtbW75gQ6LkcNO+ MJZsMku7AHQnxBprKY8z I4LxFDJwwuzoaPZz iTzfFM8gUVVvdhfiEARh mG6xUNOnP6g2HrTnZoG6 WRzqT4UwTPSzekytUg74 rJ3bOxIbAbY8QFoc Q2PdvxI5SQNbcCEdSVfw INH0L32im1T5IAGoDUJx COU0nZP8kN8jtDqyrnar bGVmdDsgdmVydGlj PLwvQCkhD151IOPfjEcx PkNvZGluZyBEYXRlOiAg MTEvMDEvMjAyMzwvdGQ+ WMEnKRZ5lUjnJMYq sQCqGEsfGf8rtOazaMhx OO1xUHYpxkwlMXTkqU9z KCQnsKOrjRczRP5gAIBs sgehm031NrYgVRM4 XFMxxWDbO6WnaC7hPtSf RGTfHHMeE4RpnDCzVEsx R868YQrvZyD9KVCftfRv P5CsGOBstXtgZmC5 c2Y0Xt8Gk3MmoxkaV1Av vHDkEqWbThbnSVp4I5Ru PjwvdHI+WC82FCAbIG70 PMj8XHC5bHzgEDkw NXUgR0WhwE3iBrEqVTEq ZGRkOyc+PHRhYmxlIHdp ZHRoPScxMDAlJyBzdHls DI2oIj0dTVUyGMSd iNwhnVQyIhVjv9ziOUKc VGqlFU5ylLzsS0XmzZP9 BESib6q6Rd25O76hW6Ox dXA+WESxzPD7jED1 hB6aVhSuWiI8QSozJ135 QdEzmHJaXrmlh9ltf4fe nQg2YkU2JVRkdxXwdWiz IEQ8l1CsFb48P78u IHdpZHRoPSIxNSUiIHZh tXfwdl1cbF8jRj0+PGNv iMY6iXP9wM7xQvOzJbK0 HNhbL202MmHqrTId Cpesb1fwp9qvkSk0RtNm TJLharWddIadEUR0i0Zl Us51M3IjrBnos6LhPaz7 bf00nPSyr9N6eEU1 Z0ZwRGZqozzigWUelXmi GZ6yXZVogrzlEKHldI5k JTIfH0a5EhImDxP4FLgw R7UcbvF8OQVsaBBb RIQckGKXxN6vghtvf7wb lskoMrHfVMMoTTz7RKs3 BGUfnGilIqZlCYV7XyJ2 GWN2fMWroU8jhJqk ywbcuC4rDok+BGG8vJVg xPKPAD4jShpwwCP+PHRk EAT9rRgwKXkiDJFqzD4n IXXhM2w3HdJoHzV1 MNclP9IecfY4CSHlaJKt EFJvaYUVcS3vtjcfr5ki tdzhUmEzIBGqUUm1ZZu2 LWFsaWduOiBsZWZ0 AhL3UNV2yKDkuT7haHmr vvollU8tNlt+QmlydGgg NWH2ZPk6F1CpExt5ARQl qAgwGN1rxCTcDJbl Sw2wuBzdoYhqJT3pTHHg tlxog835YmHff5dpTQTj kJUcNJjzIPN9B34jx6V6 QUIlQYCoJPP4pKH7 sB1ckHoxxbxnaIUcgViw jqMneFhkGPjrHKvkO895 VELmsZaaZhYkZIj0P6Pg Tpz7FCJmyMsgQR7j sGXnHQeyBa5awZobzLro GR9zMYBanfdao715SwPw i1liADEfrHXiBMgtIWC7 I00ry5D4UJUjJLRq QEH9zWD1rT1snFwboxrm bGVmdDsgdmVydGljYWwt IJpbV735CMRugLyiGtEt gRb7E2VhVvl0VZUt xRolBZ3vbWLrROjeCc0x bStpkMbnHB7cQUNeskzi y205UmPaa3qjXTYjxHQn FPvaFHO3J35cu9D8 UTBmKTAtBAO7sZM9jO0c bGlnbjogbGVmdDsgdmVy xSfrTUdbVQbkK699ZMVv cDsnPlBhdGllbnQg DWxoIDc5I7PqVibywZU+ HL35IIAfFQ83sDIxqZDd m7jgeJc6QqMkOMSfOJF4 xUvkVYfhp4ZlPFLh A99fsIOaf6L7SIZavZay nDJkUeLryBL8xI0uIUxt jwdyb2xsmsvbGyznu6vw hs86eB50R21vXIsu ZHRoPSIzMCUiIHZhbGln lo6cgM5bNt6+PGNvbCB3 nKD3eJ3sXYFzAlG3PGqk V586RfUopNVeFjxz o8lds1uvgXh1BjM7JXDn yeNnsUolTHK3l4KaBf13 I00mYWqbKTVbDLEuBTOy RPUplYcgpc8hcW0j Ii8+JILgkRI9oEP7eZ3m BwUaScL6BPigC454DhKk bSEnXjavE84qD6VzuNW+ TAZsVpi3WQBgzGac NI5dvEXvCOaqSg1fDZQ4 BtDrMdXeULtfT9DtRQCz tcsjhfwdxVB5ZHAvFJTm tM75Uh5dzJkgMKTx wWPOzP6alpozi3lkuwbn JbPqUVAeTTv9CCf8KMOb lFusHbOlHYE7FyD7XHS5 xQTyaU4nzFjdbbtb oD1rK9JzEPQsxfihVw87 bR3oKmBdCoZ8CBhuMmj+ U8QMT1qjLL9XNroUOlYT SIDKU5STRE63HB52 xEQzi2K3eBP1Q5JpXYUb yjqcomhygDH2NNUmKQVj uZ72gHTjHKfnSa7fh7C6 g235EBJdSSGdeO24 On5isXdfTVBqcYQInI5t gczcv2wpdrwmSeIkJOUi BAb5SQk3BAGufYagPaAa ZXX6GdJ7OHJ4fRJl dO9pdDqzowgsnT8pQeu+ MTAvMjMvMjAwMTwvdGQ+ DGKpFJH6gHdmLXyuSJZm hJ0nTBQdQ9g3JrNl GrE8GSrjB1CfCSVwyqml Xw32aT2nVkUxKsN4OWvc M4QwvyW1MWRezIMkMGvh HOZ5Q74tu7B5LBQt JQBqOCF7mHE9uE6fySkp bjogbGVmdDsgdmVydGlj RMkxAOqnC402RKWmjZfo HeWyEFbgUICyOJ64 VG57mNGci6N2mJN5V4Jd XTGjrusedfhodHE2FWIi IQCzhG37vAWfYVhhKe5j d2L4h528WRLyILUy fR66Ej7coWitIJGqeHMX xL4tbpjvn5xwcfomApZk JSPlJEr6UTj5TEVljIly CxOfMMX1NsC1XJS1 vVQarI8hfVrgnirxfP4s Oyc+XlVTWRlWCE90SH15 cWGiw2D9pCY2H2WcUUWf pxkmxdwbrAI1YDTj SPIsoP55oSBqGSusIv0e a5Q9r071QOUwTEIffN08 Sh0tiVdfVDMwiKLMuL0w zjwei7oylwjaMvHk JSVvUZt8CYz0KHTvsIni AeNnOYS7ZnH1MDB9fTNr uS2kfLzjytwdtF2qYsb+ ZW8vvdigafI9HR18 CC68P4PnJlnyqLWxhAY+ PHRhYmxlIHdpZHRoPScx MMJdTxTvqPaeXS8zFh9w ZGVyLWNvbGxhcHNl PvEns1fxZNPhXJwrKG1u lXbsU0NycNX8RBQka3v1 Sb60Y31oZ8ZasUL+PGNv qTF0yPC0vZ1oHsVb UcL6NAieB689BpSbbOTg Ojtvw9hfm5ferJh8DvEd OJDaogRsnXlkUYZ6g3Sx Zp65M34pNEmiYLYq XMTbQDJmNVXbrOmxzm6j uL9kTe8+QDOcxIS2qGM5 gY1mOwHbByB4OKcgR457 FcSdnWUbFovsC98a U9YwyZB+PZTmQyg3CHWt bTzjQM0ztERvZOojBh0z HPZ4SoJrTsPhHLbeK2Vb ZGRpbmctcmlnaHQ6 YMTcDWXbmF90Fl2inXgr Lg2xZORoGIN9UANoxOLx A0AktS0nVkHcQECuALPp L0QsnSGpKFmiQ556 FQxuOwV0ZWEvlmWqP3Bx XIXnfIplLmP2s8R3Hw7F oLmyrBXyYU8nOnCyIAq5 E2PqFwj1KESsgFgc XU2fhITdOSyoBl2tvTvx lHnxOO3lTRRwybelv404 PoGxt3kcXEExrTHqJByy FHI7H41ms1R4PSIo YBUxVXJ5gGM0bW9vdLnf bjogbGVmdDsgdmVydGlj OSvuOWczT373SLIjcLpg JmIKOuv5J6EvUxh3 SIQjvBmwYV8ftOBlSLfu Ve7peIebmCvcSE8wCGAx agtgb658LwGvg3eaRODy bOXeQQejDCP5X86l p7W3OUUjZXQaZBS3jKB8 dW4yvVzofqppmMCxyWki ieLctUlhCYcfUXbuZ182 MFPjtGofNd9SJjb9 O9NjNjm9CYUabCaoXG1m bEPsFOkuIo8qyZuacTxt TQ0gZVNwmxnqm381VkTe c4mjUYDsjFUeDSds VBX3N24bc9B3LKKtCCWu YPF5mSP2qU9npKnfmuci bGVmdDsgdmVydGljYWwt SNidF806IPQybCnf PlBheWVyOjwvdGQ+PC90 do37Y9BvIgelHxf2GOEd UAD7xTP6zO4iKVHgUAdt d9I0xXU6N1UdcgYa ci1 (more content not included)... [facility] ED Note-Nursingon 06-20-2023 ED Note-Nursing Pt called stating she was supposed to receive script for zofran sent to [facility] [place] but nothing was sent. Discharge and physician note reviewed from Dr. [place] and Dr. Candelario. Chaplain did not see anything was sent. Spoke with Dr. Candelario and he agreed to send zofran to [facility] [place]. Pt notified. [facility] ED Clinical Summaryon 2022 ED Clinical Summary [facility] - Emergency Department [address] [place], [place] [id number] ED Clinical Summary PERSON INFORMATION Name: ZOHAIB HAQUE Age: 23 Years Sex: FEMALE : 2000 MRN: Acct#: Visit Reason: Vomiting - ; NAUSEA, 8 WEEKS Arrival: 06/19/2023 19:21:23 Discharge: 06/19/2023 21:23:00 LOS: 000 02:02 Check In: 06/19/2023 19:21:23 Checkout:06/19/2023 21:23:00 Address: [address] [place] [address] PCP: Quiana Naranjo DO PROVIDER INFORMATION Provider Role Assigned Unassigned Benny Candelario MD ED Provider 06/19/2023 19:24:02 06/19/2023 19:37:52 Cherie Monsalve SENIOR PYTHON DEVELOPER Nurse 06/19/2023 19:33:14 Jayy Cook MD ED Provider 06/19/2023 19:37:53 06/19/2023 19:57:33 Benny Candelario MD ED Provider 06/19/2023 19:38:08 Jordon Grande MD ED Provider 06/19/2023 20:56:26 VITALS INFORMATION Vital Sign Triage Latest Temperature Tympanic Temperature Temporal Artery Pulse Rate 102 bpm 88 bpm O2 Sat 100 % 100 % Respiratory Rate 18 br/min 18 br/min Blood Pressure /70 mmHg /70 mmHg MEDICAL INFORMATION Medications Given: Medication Dose Route metoclopramide 10 mg IV Piggyback ondansetron 4 mg PO Sodium Chloride 0.9% intravenous solution 1,000 mL 1000 mL Initial Volume 1000 mL/hr IV Right Antecubital Fossa Allergy Information: penicillins; Latex PHYSICIAN DOCUMENTATION Patient: ZOHAIB HAQUE Age: 23 years Sex: FEMALE : 2000 Associated Diagnoses: Hyperemesis gravidarum Author: Jordon [place] MD Basic Information Time seen: Date & time 06/19/2023 21:10:00. History source: Patient. Arrival mode: Private vehicle. Additional information: Chief Complaint from Nursing Triage Note : Chief Complaint 06/19/2023 19:33 EDT Chief Complaint Pt states that she found out she was 3 days ago and has not been able to keep anythng down. LMP 05/08 Pt states that she vomiting during her entire last preg. Scheduled to see Dr Zayas 06/26 . History of Present Illness I have assumed care of the patient from Dr. Candelario, who has discussed the clinical presentation, work-up, and ED course thus far. I have reviewed the patient?s medical record and ED course and agree with all aspects of care thus far. Patient reassessed at 9:10 PM. Reported sleep improvement. Feeling much better. Stated that she is ready go home. Finding discussed with the patient. Treatment plan outlined. Patient indicated understanding. Ready for discharge. Health Status Allergies: Allergic Reactions (Selected) Severity Not Documented Latex- No reactions were documented. Penicillins- No reactions were documented.. Medications: (Selected) Inpatient Medications Ordered Sodium Chloride 0.9% intravenous solution 1,000 mL: 1,000 mL/hr, IV. Past Medical/ Family/ Social History Medical history: No active or resolved past medical history items have been selected or recorded.. Surgical history: No active procedure history items have been selected or recorded.. Family history: No family history items have been selected or recorded.. Social history: Social & Psychosocial Habits Alcohol 10/24/2021 Alcohol Use: Never Substance Use 12/04/2021 Substance use: Past Type: Marijuana Frequency: 3-5 times per week 06/19/2023 Substance use: Past Comment: pt denies use today - 06/19/2023 19:39 Cherie Dumont RN Tobacco 10/24/2021 Smoking tobacco use: Never (less than 100 in l 06/19/2023 Smoking tobacco use: Never tobacco user Electronic Cigarette/Vaping 10/24/2021 Electronic Cigarette Use: Never 06/19/2023 Electronic Cigarette Use: Never . Problem list: Active Problems (1) None . Physical Examination Vital Signs Vital Signs 06/19/2023 20:10 EDT Respiratory Rate 18 br/min Systolic Blood Pressure 108 mmHg Diastolic Blood Pressure 53 mmHg LOW Oxygen Therapy Room air 06/19/2023 19:33 EDT Temperature Oral 36.7 DegC Peripheral Pulse Rate 102 bpm HI Respiratory Rate 18 br/min Systolic Blood Pressure 107 mmHg Diastolic Blood Pressure 70 mmHg SpO2 100 % Oxygen Therapy Room air . Measurements 06/19/2023 19:39 EDT Weight Dosing 58.970 kg 06/19/2023 19:39 EDT Height/Length Dosing 1,778.000 cm 06/19/2023 19:33 EDT Height/Length Estimated 1,778.000 cm Weight Estimated 58.970 kg . Medical Decision Making Results review: Lab results 06/19/2023 19:49 EDT hCG Quantitative 49,938.0 mIU/mL HI Tube Collected Yes 06/19/2023 19:49 EDT Tube Collected Yes Tube Collected Yes Tube Collected Yes . Impression and Plan Diagnosis Hyperemesis gravidarum (GII04-OD O21.0, Discharge, Medical) Plan Condition: Improved, Stable. Disposition: Discharged: Time 06/19/2023 21:13:00, to home. Patient was given the following educational materials: Morning Sickness, Flzv-ck-Uuqc, Hyperemesis Gravidarum, Hyperemesis Gravidarum, Morning Sickness, Izka-ag-Nguy. Follow up with: Quiana Naranjo Within 2 to 4 days R (more content not included)... [facility] ED Note - Physicianon 2022 ED Note - Physician Patient: ZOHAIB HAQUE Age: 23 years Sex: FEMALE : 2000 Associated Diagnoses: Hyperemesis gravidarum Author: Jordon [place] MD Basic Information Time seen: Date & time 06/19/2023 21:10:00. History source: Patient. Arrival mode: Private vehicle. Additional information: Chief Complaint from Nursing Triage Note : Chief Complaint 06/19/2023 19:33 EDT Chief Complaint Pt states that she found out she was 3 days ago and has not been able to keep anythng down. LMP 05/08 Pt states that she vomiting during her entire last preg. Scheduled to see Dr Zayas 06/26 . History of Present Illness I have assumed care of the patient from Dr. Candelario, who has discussed the clinical presentation, work-up, and ED course thus far. I have reviewed the patient?s medical record and ED course and agree with all aspects of care thus far. Patient reassessed at 9:10 PM. Reported sleep improvement. Feeling much better. Stated that she is ready go home. Finding discussed with the patient. Treatment plan outlined. Patient indicated understanding. Ready for discharge. Health Status Allergies: Allergic Reactions (Selected) Severity Not Documented Latex- No reactions were documented. Penicillins- No reactions were documented.. Medications: (Selected) Inpatient Medications Ordered Sodium Chloride 0.9% intravenous solution 1,000 mL: 1,000 mL/hr, IV. Past Medical/ Family/ Social History Medical history: No active or resolved past medical history items have been selected or recorded.. Surgical history: No active procedure history items have been selected or recorded.. Family history: No family history items have been selected or recorded.. Social history: Social & Psychosocial Habits Alcohol 10/24/2021 Alcohol Use: Never Substance Use 12/04/2021 Substance use: Past Type: Marijuana Frequency: 3-5 times per week 06/19/2023 Substance use: Past Comment: pt denies use today - 06/19/2023 19:39 Cherie Dumont RN Tobacco 10/24/2021 Smoking tobacco use: Never (less than 100 in l 06/19/2023 Smoking tobacco use: Never tobacco user Electronic Cigarette/Vaping 10/24/2021 Electronic Cigarette Use: Never 06/19/2023 Electronic Cigarette Use: Never . Problem list: Active Problems (1) None . Physical Examination Vital Signs Vital Signs 06/19/2023 20:10 EDT Respiratory Rate 18 br/min Systolic Blood Pressure 108 mmHg Diastolic Blood Pressure 53 mmHg LOW Oxygen Therapy Room air 06/19/2023 19:33 EDT Temperature Oral 36.7 DegC Peripheral Pulse Rate 102 bpm HI Respiratory Rate 18 br/min Systolic Blood Pressure 107 mmHg Diastolic Blood Pressure 70 mmHg SpO2 100 % Oxygen Therapy Room air . Measurements 06/19/2023 19:39 EDT Weight Dosing 58.970 kg 06/19/2023 19:39 EDT Height/Length Dosing 1,778.000 cm 06/19/2023 19:33 EDT Height/Length Estimated 1,778.000 cm Weight Estimated 58.970 kg . Medical Decision Making Results review: Lab results 06/19/2023 19:49 EDT hCG Quantitative 49,938.0 mIU/mL HI Tube Collected Yes 06/19/2023 19:49 EDT Tube Collected Yes Tube Collected Yes Tube Collected Yes . Impression and Plan Diagnosis Hyperemesis gravidarum (EUV28-OF O21.0, Discharge, Medical) Plan Condition: Improved, Stable. Disposition: Discharged: Time 06/19/2023 21:13:00, to home. Patient was given the following educational materials: Morning Sickness, [id number], Hyperemesis Gravidarum, Hyperemesis Gravidarum, Morning Sickness, [id number]-zm-[id number]. Follow up with: Quiana Naranjo Within 2 to 4 days Reviewed discharge care instruction. Continue with therapy as outlined by Dr. Grande. Contact your family doctor or OB within the recommended time. Return to ER for any worsening symptoms especially any symptom that concerns you. . Counseled: Patient, Regarding diagnosis, Regarding diagnostic results, Regarding treatment plan, Regarding prescription, Patient indicated understanding of instructions. [Electronically Signed on: 06/19/2023 21:17 EDT] Jordon Grande MD [Verified on: 06/19/2023 21:17 EDT] Jordon Grande MD [facility] ED Note-Nursingon 06-19-2023 ED Note-Nursing Pt arrives with complaints of nausea and vomiting that started about 3 days ago when she found out she was . Pt states that she she vomited thru her last . Pt has an appt with Dr Zayas 06/26 for her 1st appt [facility] ED Patient Summaryon 023 ED Patient Summary [facility] - Emergency Department [address] [place] [address] PATIENT DISCHARGE INSTRUCTIONS Patient Information Name: ZOHAIB HAQUE Age: 23 Years Date of : 2000 Reason For Visit: Vomiting - ; NAUSEA, 8 WEEKS Arrival Time: 06/19/2023 19:21:23 Primary Care Physician: Quiana Naranjo DO Attending Physician: Benny Candelario MD Comment: Visit Diagnosis: Diagnoses This Visit Hyperemesis gravidarum (O21.0) Vomiting - ([id number]) [facility] - [facility] is open Thursday through Thursday from 9A to 6P and Thursday and Thursday from 9A to 5P Prescription Information: If you have been given a prescription for narcotics, seek immediate medical attention if you have any difficulty breathing or any sudden status changes such as confusion and sleepiness. If you or anyone you know is experiencing suicidal thoughts, mental health, alcohol and/or drug addiction problems; contact the [facility] 16/03 Crisis Hotline -Text 8OQNF jk 994777. If you received any narcotics, sedation, or any other medication that causes drowsiness for the next 24 hours, unless otherwise directed: ? Do not drive a car. ? Do not operate machinery such as power tools, lawn mowers, drills, sewing machines, or stoves ? Avoid alcoholic beverages and drugs for allergies, nerves, or sleep ? Do not make important personal or business decisions or sign any legal documents With: Address: When: Quiana Naranjo [address] [id number] Business (1) Within 2 to 4 days Comments: Reviewed discharge care instruction. Continue with therapy as outlined by Dr. Grande. Contact your family doctor or OB within the recommended time. Return to ER for any worsening symptoms especially any symptom that concerns you. Medication Information: The exam and treatment you received today in the [facility] Emergency Department were for an urgent problem and are not intended as complete care. It is important for you to follow up with a doctor, nurse practitioner, or physician?s ophthalmic assistant for ongoing care. If your symptoms become worse or you do not improve as expected and you are unable to reach your usual health care provider, you should return to the Emergency Department, we are available 24 hours a day. For those patients who have received Radiology results, the interpretation of your X-ray as given to you by our Emergency Department physician is only a preliminary report. The Radiologist will review your films and if there is a change in the diagnosis you will be notified by phone. Please make sure you have provided a working phone number so we can reach you if necessary. In the event that you had a lab culture while you were a patient in the Emergency Department, you will be notified by phone if there is a need to change your antibiotic. Please make sure you have provided a working phone number so we can reach you if necessary. [facility] Emergency Department has provided you with a complete list of medications post discharge. Please inform your sports physiologist/provider of your visit and for further instruction on these medications. Any specific questions regarding your chronic medications and dosages should be discussed with your primary care physician(s) and/or pharmacist. Visit Information Allergies: Substance Reaction Symptoms Type Comments Latex penicillins Drug Vital Signs: Vitals and Measurements this Visit (last charted value for your 06/19/2023 visit) Vital Signs This Visit Temperature Oral: 36.7 DegC Peripheral Pulse Rate: 88 bpm Respiratory Rate: 18 br/min Systolic Blood Pressure: 102 mmHg Diastolic Blood Pressure: 67 mmHg SpO2: 100 % Oxygen Therapy: Room air Measurements This Visit Height/Length Dosin.000 cm Height/Length Estimated: 1778.000 cm Weight Dosin.970 kg Weight Estimated: 58.970 kg Problems List: Problem Onset Comments None Patient Education Hyperemesis Gravidarum Hyperemesis gravidarum is a severe form of nausea and vomiting that happens during . Hyperemesis is worse than morning sickness. It may cause you to have nausea or vomiting all day for many days. It may keep you from eating and drinking enough food and liquids, which can lead to dehydration, malnutrition, and weight loss. Hyperemesis usually occurs during the first half (the first 20 weeks) of . It often goes away once a woman is in her second half of . However, sometimes hyperemesis continues through an entire . What are the causes? The cause of this condition is not known. It may be associated with: ? Changes in hormones in the body during . ? Changes in the gastrointestinal system. ? Genetic or inherited conditions. What are the signs or symptoms? Symptoms of this c (more content not included)... Normal [facility] Extra Greenon 06-19-2023 Tube Collected Yes Invalid Interpretation Code [facility] Comment on above: Performed By: #### 1 [id number], [id number], [id number], [id number], [id number] ####[facility] (DEFAULT)[address] [place] [address] hCG Quantitativeon 3 hCG Quantitative 16679.0 mIU/mL High 0.0-0.6 [facility] Comment on above: Result Comment: Post -Menopausal Reference Range is: 0.1-11.6 mIU/mL Performed By: #### 1 [id number], [id number], [id number], [id number], [id number] ####[facility] (DEFAULT)[address] [place] [address] Urinalysison 03-23-2022 Bilirubin Urine Negative NEGATIVE [facility] Color, UA Yellow Yellow [facility] Glucose, Ur Negative NEGATIVE [facility] Ketones Ql (U) Negative NE[facility]IVE [facility] Leukocyte esterase Test strip Ql (U) Negative NEGATIVE [facility] Nitrite, Urine Negative NEGATIVE [facility] pH, UA 6.0 5 - 9 [facility] Protein, UA Negative NEGATIVE [facility] Specific Clemons, UA 1.020 1.01 - 1.02 [facility] Turbidity UA Clear Clear [facility] Urine Hgb Negative NEGATIVE [facility] Urobilinogen, Urine Normal Normal [facility] US OB Growthon 01-16-2022 US OB Growth COMPARISON: 11/14/2021. Transabdominal ultrasound of the gravid uterus was performed. FINDINGS: A single live intrauterine is noted in cephalic position. cardiac activity is measured at 147. The cervix measures approximately 2.7 cm in longitudinal length. A grade 1-appearing placenta is posterior without evidence of placenta previa. The amniotic fluid index measures approximately 12.5 cm measured in 4 quadrants, which is within normal limits for gestation. 26.8 percentile. MEASUREMENTS: BPD 6.6 cm, HC 26.8 cm, AC 22.4 cm, FL 5.7 cm, which corresponds to 28 weeks 1 day, +/- 2 weeks. ESTIMATED WEIGHT: 1173 g (2 lbs. 9 oz.), which is 13.1 percentile for gestation by LMP. No gross anatomic abnormalities are identified, within limits of the advanced gestational age. IMPRESSION: SINGLE LIVE INTRAUTERINE CORRESPONDING TO APPROXIMATELY 28 weeks 1 day, +/- 2 weeks. APPROPRIATE GROWTH SINCE 11/14/2021. NO GROSS ABNORMALITY IDENTIFIED, WITHIN THE LIMITS OF THE STUDY. Report reported and signed by Boaz Mireles on 01/19/2022 0756 Normal [facility] Patient Services Representative Q - CBC W/DIFF AND PLTon BASOABS 26 cells/uL Normal 0-200 [facility] Patient Services Representative Comment on above: Order Comment: [facility] performed at: QPT, [facility], [address] [place] [address], [address] [place] [address], [address] [place] [address], Director Medical Surgical: Joel Tamayo MD [facility] Collection Date/Time: [facility] Results Received Date/Time: [facility] Reported Date/Time: Performed By: #### 1 [id number], 6399 #### [facility] Default [address] [place] [address] Basophils/100 WBC (Bld) 0.3 % Normal [facility] Specialist Comment on above: Order Comment: [facility] performed at: [employer], [employer], [address] [facility], [address] [place] [address], [address] [place] [address], Director Medical Surgical: Joel Tamayo MD [facility] Date/Time: [facility] Results Received Date/Time: [facility] Reported Date/Time: Performed By: #### 1 [id number], 6399 #### [facility] [address] [place] [address] EOSABS 62 cells/uL Normal 15-500 [facility] Specialist Comment on above: Order Comment: [facility] performed at: [employer], [facility], [address] [place] [address], [address] [place] [address], [address] [place] [address], Director Medical Surgical: Joel Tamayo MD [facility] Date/Time: [facility] Results Received Date/Time: [facility] Reported Date/Time: Performed By: #### 1 [id number], 6399 #### [facility] [address] [place] [address] Eosinophils/100 WBC (Bld) 0.7 % Normal [facility] Specialist Comment on above: Order Comment: [facility] performed at: [employer], [employer], [address] [facility], [address] [place] [address], [address] [place] [address], Director Medical Surgical: Joel Tamayo MD [facility] Date/Time: [facility] Results Received Date/Time: [facility] Reported Date/Time: Performed By: #### 1 [id number], 6399 #### [facility] [address] [place] [address] Erythrocyte distribution width (RBC) [Ratio] 12.4 % Normal 11.0-15.0 [facility] Patient Services Representative Comment on above: Order Comment: [facility] performed at: [place], [facility], [address] [place] [address], [address] [place] [address], [address] [place] [address], Director Medical Surgical: Joel Tamayo MD [facility] Date/Time: [facility] Results Received Date/Time: [facility] Reported Date/Time: Performed By: #### 1 [id number], 6399 #### [facility] [address] [place] [address] Hematocrit (Bld) [Volume fraction] 30.3 % Low 35.0-45.0 [facility] Patient Services Representative Comment on above: Order Comment: [facility] performed at: [facility], [facility], [address] [place] [address], [address] [place] [address], [address] [place] [address], Director Medical Surgical: Joel Tamayo MD [facility] Date/Time: [facility] Results Received Date/Time: [facility] Reported Date/Time: Performed By: #### 1 [id number], 6399 #### [facility] [address] [place] [address] Hemoglobin (Bld) [Mass/Vol] 9.7 g/dL Low 11.7-15.5 [facility] Patient Services Representative Comment on above: Order Comment: [facility] performed at: [employer], [facility], [address] [place] [address], [address] [place] [address], [address] [place] [address], Director Medical Surgical: Joel Tamayo MD [facility] Date/Time: [facility] Results Received Date/Time: [facility] Reported Date/Time: Performed By: #### 1 [id number], 6399 #### [facility] [address] [place] [address] Lymphocytes (Bld) [#/Vol] 1.531 10*3/uL Normal 850-3900 [facility] Patient Services Representative Comment on above: Order Comment: [facility] performed at: [employer], [facility], [address] [place] [address], [address] [place] [address], [phone], Director Medical Surgical: Joel Tamayo MD [facility] Date/Time: [facility] Results Received Date/Time: [facility] Reported Date/Time: Performed By: #### 1 5040E, 6399 #### [facility] Default [address] [place] [address] Lymphocytes/100 WBC (Bld) 17.4 % Normal [facility] Patient Services Representative Comment on above: Order Comment: [facility] performed at: [employer], [facility], [address] [place] [address], [address] [place] [address], [address] [place] [address], Director Medical Surgical: Joel Tamayo MD [facility] Date/Time: [facility] Results Received Date/Time: [facility] Reported Date/Time: Performed By: #### 1 [id number], 6399 #### [facility] [address] [place] [address] MCH (RBC) [Entitic mass] 28.4 pg Normal 27.0-33.0 [facility] Patient Services Representative Comment on above: Order Comment: [facility] performed at: [employer], [facility], [address] [place] [address], [address] [place] [address], [phone], Director Medical Surgical: Joel Tamayo MD [facility] Date/Time: [facility] Results Received Date/Time: [facility] Reported Date/Time: Performed By: #### 1 [id number], 6399 #### [facility] [address] [place] [address] MCHC (RBC) [Mass/Vol] 32.0 g/dL Normal 32.0-36.0 [facility] Patient Services Representative Comment on above: Order Comment: [facility] performed at: [employer], [facility], [address] [place] [address], [address] [place] [address], [phone], Director Medical Surgical: Joel Tamayo MD [facility] Date/Time: [facility] Results Received Date/Time: [facility] Reported Date/Time: Performed By: #### 1 [id number], 6399 #### [facility] [address] [place] [address] MCV (RBC) [Entitic vol] 88.9 fL Normal 80.0-100.0 [facility] Specialist Comment on above: Order Comment: [facility] performed at: [employer], [facility], [address] , [address] [place] [address], [phone], Director Medical Surgical: Joel Tamayo MD [facility] Date/Time: [facility] Results Received Date/Time: [facility] Reported Date/Time: Performed By: #### 1 [id number], 6399 #### [facility] [address] [place] [address] MONOABS 660 cells/uL Normal 200-950 [facility] Patient Services Representative Comment on above: Order Comment: [facility] performed at: [facility], [address] , [address] [place] [address], [phone], Director Medical Surgical: Joel Tamayo MD [facility] Date/Time: [facility] Results Received Date/Time: [facility] Reported Date/Time: Performed By: #### 1 [id number], 6399 #### [facility] [address] [place] [address] Monocytes/100 WBC (Bld) 7.5 % Normal [facility] Specialist Comment on above: Order Comment: [facility] performed at: [facility], [address], [address] [place] [address], [phone], Director Medical Surgical: Joel Tamayo MD [facility] Date/Time: [facility] Results Received Date/Time: [facility] Reported Date/Time: Performed By: #### 1 [id number], 6399 #### [facility] [address] [place] [address] Neutrophils (Bld) [#/Vol] 6.521 10*3/uL Normal 1413-8900 [facility] Specialist Comment on above: Order Comment: [facility] performed at: [employer], [facility], [address] [place] [address], [address] [place] [address], [address] [place] [address], Director Medical Surgical: Joel Tamayo MD [facility] Date/Time: [facility] Results Received Date/Time: [facility] Reported Date/Time: Performed By: #### 1 5040E, 6399 #### [facility] [address] [place] [address] Neutrophils/100 WBC (Bld) 74.1 % Normal [facility] Patient Services Representative Comment on above: Order Comment: [facility] performed at: [employer], [facility], [address] [place] [address], [address] [place] [address], [address] [place] [address], Director Medical Surgical: Joel Tamayo MD [facility] Date/Time: [facility] Results Received Date/Time: [facility] Reported Date/Time: Performed By: #### 1 5040E, 6399 #### [facility] [address] [place] [address] Platelet mean volume (Bld) [Entitic vol] 13.9 fL High 7.5-12.5 [facility] Patient Services Representative Comment on above: Order Comment: [facility] performed at: [employer], [facility], [address] [place] [address], [address] [place] [address], [address] [place] [address], Director Medical Surgical: Joel Tamayo MD [facility] Date/Time: [facility] Results Received Date/Time: [facility] Reported Date/Time: Performed By: #### 1 5040E, 6399 #### [facility] [address] [place] [address] Platelets (Bld) [#/Vol] 170 10*3/uL Normal 140-400 [facility] Patient Services Representative Comment on above: Order Comment: [facility] performed at: [facility], [address] [facility], [address] [place] [address], [address] [place] [address], Director Medical Surgical: Joel Tamayo MD [facility] Date/Time: [facility] Results Received Date/Time: [facility] Reported Date/Time: Performed By: #### 1 [id number], 6399 #### [facility] [address] [place] [address] RBC (Bld) [#/Vol] 3.41 10*6/uL Low 3.80-5.10 Robert rg [place] Patient Services Representative Comment on above: Order Comment: [facility] performed at: [facility], [address] [facility], [address] [place] [address], [address] [place] [address], Director Medical Surgical: Joel Tamayo MD [facility] Date/Time: [facility] Results Received Date/Time: [facility] Reported Date/Time: Performed By: #### 1 [id number], 6399 #### [facility] [address] [place] [address] WBC (Bld) [#/Vol] 8.8 10*3/uL Normal 3.8-10.8 Philippe sparks [place] Patient Services Representative Comment on above: Order Comment: [facility] performed at: [facility], [address] [facility], [address] [place] [address], [address] [place] [address], Director Medical Surgical: Joel Tamayo MD [facility] Date/Time: [facility] Results Received Date/Time: [facility] Reported Date/Time: Performed By: #### 1 5040E, 6399 #### [facility] [address] [place] [address] Q - GLUCOSE,GESTATIONAL SCRE EN(50G)-135 CUTOFFon 01-09-2022 Glucose [Mass/Vol] 69 mg/dL Normal <135 Philippe sparks [place] Patient Services Representative Comment on above: Order Comment: [facility] performed at: [facility], [facility], [address] , [address] [place] [address], [address] [place] [address], Director Medical Surgical: Joel Tamayo MD [facility] Date/Time: [facility] Results Received Date/Time: [facility] Reported Date/Time: Performed By: #### 9 1486, 6304R, 41728, 65647I, 4439, 2782A #### [facility] [address] [place] [address] Q - CHLAMYDIA TRACHOMATIS/NE ISSERIA GONORRHOEAE RNA TMAon 11-14-2021 CHLAMYDIA TRACHOMATIS RNA, TMA, UROGENITAL Not detected Normal NOT DETECTED [facility] Comment on above: Order Comment: [facility] performed at: [employer], [facility], [address] [facility], [address] [place] [address], [address] [place] [address], Director Medical Surgical: Joel Tamayo MD [facility] Date/Time: [facility] Results Received Date/Time: [facility] Reported Date/Time: FASTING: NO Performed By: #### 1 1363 #### [facility] [address] [place] [address] COMMENT SEE NOTE Normal [facility] Comment on above: Order Comment: [facility] Testing performed at: [facility], [facility], [address] [facility], [address] [place] [address], [address] [place] [address], Director Medical Surgical: Joel Tamayo MD [facility] Date/Time: [facility] Results Received Date/Time: [facility] Reported Date/Time: FASTING: NO Result Comment: The analytical performance characteristics of this assay, when used to test SurePath(TM) specimens have been determined by [employer]. The modifications have not been cleared or approved by the FDA. This assay has been validated pursuant to the CLIA regulations and is used for clinical purposes. For additional information, please refer to https://education.[employer]/faq/JVC288 (This link is being provided for information/ educational purposes only.) Performed By: #### 1 1363 #### [facility] [address] [place] [address] NEISSERIA GONORRHOEAE RNA, TMA, UROGENITAL Not detected Normal NOT DETECTED [facility] Patient Services Representative Comment on above: Order Comment: [facility] performed at: QPT, [facility], [address], [address] [facility], [place], [address], Director Medical Surgical: Joel Tamayo MD [facility] Date/Time: [id number] [facility] Results Received Date/Time: [facility] Reported Date/Time: FASTING: NO Performed By: #### 1 1363 #### [facility] [address] [place] [address] US OB 2nd/3rd Trimesteron US OB 2nd/3rd Trimester FINDINGS: A single, live intrauterine is present with normal cardiac rate of 156 beats per minute. Normal activity and amniotic fluid volume. Amniotic fluid index is 13 cm. Morphology is grossly normal. The cervix is long and closed, 3.6 cm. The current sonographic age is 19 weeks and 5 days, based on the following measurements: BPD 4.5 cm (19 weeks, 4 days) Head Circumference 17.0 cm (19 weeks, 4 days) Abdominal Circumference 14.4 cm (19 weeks, 5 days) Femur Length 3.1 cm (19 weeks, 5 days) Presentation Breech Placenta Posterior fundal Grade I Weight (g) by Apehwuswop94.8 % * These measurements result in an estimated date of delivery of April 05, 2022. The current estimated weight is 307 grams (0 pounds, 11 ounces). IMPRESSION: 1. Single, live intrauterine , current sonographic age of 19 weeks and 5 days, with an estimated date of delivery of April 05, 2022. 2. Current estimated weight 307 grams (0 pounds, 11 ounces) * Estimated Weight (g) by Percentile is based upon an accurate estimated age based on last menstrual period. Report reported and signed by Ismael Warren on 11/14/2021 1542 Normal [facility] Specialist Q - ANTIBODY SCREEN,RBC W/RE FL ID,TITER AND AGon 10-08-2021 ANTIBODY SCREEN, RBC W/REFL ID, TITER AND AG Detected Normal [place] Patient Services Representative Comment on above: Order Comment: [facility] performed at: [employer], [facility], [address], [address] [place] [address], [address] [place] [address], Director Medical Surgical: Joel Tamayo MD [facility] Date/Time: [facility] Results Received Date/Time: [facility] Reported Date/Time: Result Comment: Refe rence range No antibodies detected This assay is a screening test for the detection of red blood cell antibodies. The test is not to be used for pretransfusion screening or for the medical management of an alloimmunized . Performed By: #### 9 1486, 6304R, 13795, 48006L, 4439, 2782A #### [facility] [address] [place] [address] Q - CHLAMYDIA TRACHOMATIS/NE ISSERIA GONORRHOEAE RNA TMAon 10-08-2021 CHLAMYDIA TRACHOMATIS RNA, TMA, UROGENITAL Detected Abnormal NOT DETECTED [facility] Patient Services Representative Comment on above: Order Comment: [facility] performed at: [facility], [address], [address] [place] [address], [address] [place] [address], Director Medical Surgical: Joel Tamayo MD [facility] Date/Time: [facility] Results Received Date/Time: [facility] Reported Date/Time: Result Comment: If results do not correlate with clinical findings, testing using an alternate molecular target which amplifies different genetic sequences can be performed on the same sample for result confirmation within 7 days of sample receipt or per performing laboratory specimen retention policy. Alternate target testing is available; 93568 (C. trachomatis) or [address]32[address] (N. gonorrhoeae). Performed By: #### 9 1486, 6304R, 78605, [id number], 4439, 2782A #### [facility] [address] [place] [address] COMMENT SEE NOTE Normal [facility] Patient Services Representative Comment on above: Order Comment: [facility] performed at: [facility], [address], [address] [place] [address], [phone], Director Medical Surgical: Joel Tamayo MD [facility] Date/Time: [facility] Results Received Date/Time: [facility] Reported Date/Time: Result Comment: The analytical performance characteristics of this assay, when used to test SurePath(TM) specimens have been determined by [employer]. The modifications have not been cleared or approved by the FDA. This assay has been validated pursuant to the CLIA regulations and is used for clinical purposes. For additional information, please refer to https://education.[employer]/faq/RVP610 (This link is being provided for information/ educational purposes only.) Performed By: #### 9 1486, 6304R, 06646, 26063J, 4439, 2782A #### [facility] Default [address] [place] [address] Result Comment: See Note 2 Note 1 This test was developed and its analytical performance characteristics have been determined by [employer]. It has not been cleared or approved by the FDA. This assay has been validated pursuant to the CLIA regulations and is used for clinical purposes. Note 2 This drug testing is for medical treatment only. Analysis was performed as non-forensic testing and these results should be used only by healthcare providers to render diagnosis or treatment, or to monitor progress of medical conditions. For assistance with interpreting these drug results, please contact a [facility] Toxicology Specialist: [phone] ( [phone] M-F, 8am-6pm EST. NEISSERIA GONORRHOEAE RNA, TMA, UROGENITAL Not detected Normal NOT DETECTED [facility] Patient Services Representative Comment on above: Order Comment: [facility] Testing performed at: QPT, [facility], [address] [place] [address], [address] [place] [address], [place], [address], Director Medical Surgical: Joel Tamayo MD [facility] Collection Date/Time: [facility] Results Received Date/Time: [facility] Reported Date/Time: Performed By: #### 9 1486, 6304R, 66710, 57244V, 4439, 2782A #### [facility] Default [address] [place] [address] Q - CULTURE,URINE,ROUTINEon 10-08-2021 CULTURE, URINE, ROUTINE SEE NOTE Normal [facility] Patient Services Representative Comment on above: Order Comment: [facility] performed at: [facility], [address] [facility], [address] [place] [address], [address] [place] [address], Director Medical Surgical: Joel Tamayo MD [facility] Date/Time: [facility] Results Received Date/Time: [facility] Reported Date/Time: Result Comment: CULT URE, URINE, ROUTINE Micro Number: [id number] Test Status: Final Specimen Source: Not given Specimen Quality: Adequate Result: Mixed genital giovanny isolated. These superficial bacteria are not indicative of a urinary tract infection. No further organism identification is warranted on this specimen. If clinically indicated, recollect clean-catch, mid-stream urine and transfer immediately to Urine Culture Transport Tube. Performed By: #### 9 1486, 6304R, 40189, 67553I, 4439, 2782A #### [facility] [address] [place] [address] Q - DRUG TOX MONITORING 6 TH CONFIRMATION,URINEon 10-08-2021 Amphetamines Negative Normal <500 [facility] Patient Services Representative Comment on above: Order Comment: [facility] performed at: [facility], [address] [facility], [address] [place] [address], [address] [place] [address], Director Medical Surgical: Joel Tamayo MD [facility] Date/Time: [facility] Results Received Date/Time: [facility] Reported Date/Time: Performed By: #### 9 1486, 6304R, 94777, 10148B, 4439, 2782A #### [facility] [address] [place] [address] Barbiturates Negative Normal <300 [facility] Patient Services Representative Comment on above: Order Comment: [facility] performed at: [facility], [address] [facility], [address] [place] [address], [address], Director Medical Surgical: Joel Tamayo MD [facility] Date/Time: [facility] Results Received Date/Time: [facility] Reported Date/Time: Performed By: #### 9 1486, 6304R, 55725, 94966F, 4439, [id number] #### [facility] [address] [place] [address] Benzodiazepines Negative Normal <100 [facility] Comment on above: Order Comment: [facility] performed at: [employer], [facility], [address], [address] [place] [address], [address] [place] [address], Director Medical Surgical: Joel Tamayo MD [facility] Date/Time: [facility] Results Received Date/Time: [facility] Reported Date/Time: Performed By: #### 9 1486, 6304R, 46490, 89798Q, 4439, 2782A #### [facility] [address] [place] [address] Cocaine Metabolite Negative Normal <150 [facility] Comment on above: Order Comment: [facility] performed at: [facility], [address] [facility], [address] [place] [address], [address] [place] [address], Director Medical Surgical: Joel Tamayo MD [facility] Date/Time: [facility] Results Received Date/Time: [facility] Reported Date/Time: Performed By: #### 9 1486, 6304R, 60912, 34261B, 4439, 2782A #### [facility] [address] [place] [address] Marijuana Metabolite 63 ng/mL High <5 [facility] Comment on above: Order Comment: [facility] performed at: [employer], [facility], [address] [place] [address], [address] [place] [address], [address] [place] [address], Director Medical Surgical: Joel Tamayo MD [facility] Date/Time: [facility] Results Received Date/Time: [facility] Reported Date/Time: Result Comment: See Note 1 Performed By: #### 9 1486, 6304R, 64874, 78598E, 4439, 2782A #### [facility] [address] [place] [address] Marijuana Metabolite 20 Positive Abnormal <20 [facility] Specialist Comment on above: Order Comment: [facility] performed at: [facility], [address] [place] [address], [address] [place] [address], [address] [place] [address], Director Medical Surgical: Joel Tamayo MD [facility] Date/Time: [facility] Results Received Date/Time: [facility] Reported Date/Time: Performed By: #### 9 1486, 6304R, 64003, 97057F, 4439, 2782A #### [facility] [address] [place] [address] Methadone Metabolite Negative Normal <100 [facility] Comment on above: Order Comment: [facility] performed at: [facility], [address] [place] [address], [address] [place] [address], [address] [place] [address], Director Medical Surgical: Joel Tamayo MD [facility] Date/Time: [facility] Results Received Date/Time: [facility] Reported Date/Time: Performed By: #### 9 1486, 6304R, 34985, 68142E, 4439, 2782A #### [facility] [address] [place] [address] Opiates Negative Normal <100 [facility] Specialist Comment on above: Order Comment: [facility] performed at: [facility], [address] [place] [address], [address] [place] [address], [address] [place] [address], Director Medical Surgical: Joel Tamayo MD [facility] Date/Time: [facility] Results Received Date/Time: [facility] Reported Date/Time: Performed By: #### 9 1486, 6304R, 73010, 09090A, 4439, 2782A #### [facility] [address] [place] [address] Oxycodone Negative Normal <100 [facility] Specialist Comment on above: Order Comment: [facility] performed at: [employer], [facility], [address] , [address] [place] [address], [address] [place] [address], Director Medical Surgical: Joel Tamayo MD [facility] Collection Date/Time: [facility] Results Received Date/Time: [facility] Reported Date/Time: Performed By: #### 9 1486, 6304R, 97096, 48187K, 4439, 2782A #### [facility] [address] [place] [address] Phencyclidine Negative Normal <25 [facility] Patient Services Representative Comment on above: Order Comment: [facility] performed at: [employer], [facility], [address] , [address] [place] [address], [address] [place] [address], Director Medical Surgical: Joel Tamayo MD [facility] Date/Time: [facility] Results Received Date/Time: [facility] Reported Date/Time: Performed By: #### 9 1486, 6304R, 08997, 66046U, 4439, 2782A #### [facility] [address] [place] [address] Q - URINALYSIS WITH REFLEX T O MICROSCOPICon 10-08-2021 Appearance (U) CLOUDY Abnormal CLEAR [facility] Patient Services Representative Comment on above: Order Comment: [facility] performed at: [employer], [facility], [address] , [address] [place] [address], [address] [place] [address], Director Medical Surgical: Joel Tamayo MD [facility] Collection Date/Time: [facility] Results Received Date/Time: [facility] Reported Date/Time: Performed By: #### 9 1486, 6304R, 26847, 62047V, 4439, 2782A #### [facility] [address] [place] [address] BACTERIA FEW Abnormal NONE SEEN [facility] Patient Services Representative Comment on above: Order Comment: [facility] performed at: [employer], [facility], [address] , [address] [place] [address], [address] [place] [address], Director Medical Surgical: Joel Tamayo MD [facility] Date/Time: [facility] Results Received Date/Time: [facility] Reported Date/Time: Performed By: #### 9 1486, 6304R, 83571, 04249J, 4439, 2782A #### [facility] [address] [place] [address] Bilirubin Ql (U) Negative Normal NEGATIVE [facility] Patient Services Representative Comment on above: Order Comment: [facility] performed at: [employer], [facility], [address] [facility], [address] [place] [address], [address] [place] [address], Director Medical Surgical: Joel Tamayo MD [facility] Collection Date/Time: [facility] Results Received Date/Time: [facility] Reported Date/Time: Performed By: #### 9 1486, 6304R, 90265, 95818M, 4439, 2782A #### [facility] [address] [place] [address] CALCIUM OXALATE CRYSTALS MANY Abnormal NONE OR FEW [facility] Patient Services Representative Comment on above: Order Comment: [facility] performed at: [facility], [address] [place] [address], [address] [place] [address], [address] [place] [address], Director Medical Surgical: Joel Tamayo MD [facility] Collection Date/Time: [facility] Results Received Date/Time: [facility] Reported Date/Time: Performed By: #### 9 1486, 6304R, 17106, 36663A, 4439, 2782A #### [facility] [address] [place] [address] Color (U) YELLOW Normal YELLOW [facility] Patient Services Representative Comment on above: Order Comment: [facility] performed at: [facility], [address] [place] [address], [address] [place] [address], [address] [place] [address], Director Medical Surgical: Joel Tamayo MD [facility] Collection Date/Time: [facility] Results Received Date/Time: [facility] Reported Date/Time: Performed By: #### 9 1486, 6304R, 81176, 33160T, 4439, 2782A #### [facility] Default [address] [place] [address] Glucose Ql (U) Negative Normal NEGATIVE [facility] Patient Services Representative Comment on above: Order Comment: [facility] Testing performed at: [employer], [facility], [address] [place] [address], [address] [place] [address], [address] [place] [address], Director Medical Surgical: Joel Tamayo MD [facility] Collection Date/Time: [facility] Results Received Date/Time: [facility] Reported Date/Time: Performed By: #### 9 1486, 6304R, 37301, 10946I, 4439, 2782A #### [facility] Default [address] [place] [address] HYALINE CAST NONE SEEN Normal NONE SEEN [facility] Patient Services Representative Comment on above: Order Comment: [facility] Testing performed at: [employer], [facility], [address] [place] [address], [address] [place] [address], [address] [place] [address], Director Medical Surgical: Joel Tamayo MD [facility] Collection Date/Time: [facility] Results Received Date/Time: [facility] Reported Date/Time: Performed By: #### 9 1486, 6304R, 64713, 77177W, 4439, 2782A #### [facility] Default [address] [place] [address] Ketones Ql (U) Negative Normal NEGATIVE [facility] Patient Services Representative Comment on above: Order Comment: [facility] Testing performed at: [employer], [facility], [address] [place] [address], [address] [place] [address], [address] [place] [address], Director Medical Surgical: Joel Tamayo MD [facility] Collection Date/Time: [facility] Results Received Date/Time: [facility] Reported Date/Time: Performed By: #### 9 1486, 6304R, 11787, 12857P, 4439, 2782A #### [facility] Default [address] [place] [address] Leukocyte esterase Test strip Ql (U) 1+ Abnormal NEGATIVE [facility] Patient Services Representative Comment on above: Order Comment: [facility] performed at: [facility], [address] [place] [address], [address] [place] [address], [address] [place] [address], Director Medical Surgical: Joel Tamayo MD [facility] Collection Date/Time: [facility] Results Received Date/Time: [facility] Reported Date/Time: Performed By: #### 9 1486, 6304R, 46152, 47901B, 4439, 2782A #### [facility] Default [address] [place] [address] Nitrite Ql (U) Negative Normal NEGATIVE [facility] Patient Services Representative Comment on above: Order Comment: [facility] performed at: [facility], [address] [place] [address], [address] [place] [address], [address] [place] [address], Director Medical Surgical: Joel Tamayo MD [facility] Collection Date/Time: [facility] Results Received Date/Time: [facility] Reported Date/Time: Performed By: #### 9 1486, 6304R, 87036, 66673R, 4439, 2782A #### [facility] Default [address] [place] [address] OCCULT BLOOD Negative Normal NEGATIVE [facility] Patient Services Representative Comment on above: Order Comment: [facility] performed at: [facility], [address] [place] [address], [address] [place] [address], [address] [place] [address], Director Medical Surgical: Joel Tamayo MD [facility] Collection Date/Time: [facility] Results Received Date/Time: [facility] Reported Date/Time: Performed By: #### 9 1486, 6304R, 54219, 48278Z, 4439, 2782A #### [facility] Default [address] [place] [address] pH (U) 5.5 [pH] Normal 5.0-8.0 [facility] Patient Services Representative Comment on above: Order Comment: [facility] Testing performed at: [facility], [address] [facility], [address] [place] [address], [address] [place] [address], Director Medical Surgical: Joel Tamayo MD [facility] Collection Date/Time: [facility] Results Received Date/Time: [facility] Reported Date/Time: Performed By: #### 9 1486, 6304R, 87911, 92602P, 4439, 2782A #### [facility] Default [address] [place] [address] Protein Ql (U) Negative Normal NEGATIVE [facility] Patient Services Representative Comment on above: Order Comment: [facility] Testing performed at: [place], [facility], [address] [place] [address], [address] [place] [address], [address] [place] [address], Director Medical Surgical: Joel Tamayo MD [facility] Collection Date/Time: [facility] Results Received Date/Time: [facility] Reported Date/Time: Performed By: #### 9 1486, 6304R, 65290, 19886B, 4439, 2782A #### [facility] Default [address] [place] [address] RBC NONE SEEN Normal < OR = 2 [facility] Patient Services Representative Comment on above: Order Comment: [facility] Testing performed at: [employer], [facility], [address] [place] [address], [address] [place] [address], [address] [place] [address], Director Medical Surgical: Joel Tamayo MD [facility] Collection Date/Time: [facility] Results Received Date/Time: [facility] Reported Date/Time: Performed By: #### 9 1486, 6304R, 66847, 71160U, 4439, 2782A #### [facility] Default [address] [place] [address] Specific gravity (U) [Rel density] 1.026 Normal 1.001-1.035 [facility] Patient Services Representative Comment on above: Order Comment: [facility] Testing performed at: [place], [facility], [address] [place] [address], [address] [place] [address], [address] [place] [address], Director Medical Surgical: Joel Tamayo MD [facility] Collection Date/Time: [facility] Results Received Date/Time: [facility] Reported Date/Time: Performed By: #### 9 1486, 6304R, 19148, 55708Z, 4439, 2782A #### [facility] Default [address] [place] [address] SQUAMOUS EPITHELIAL CELLS 10-20 Abnormal < OR = 5 [facility] Patient Services Representative Comment on above: Order Comment: [facility] Testing performed at: [employer], [facility], [address] [facility], [address] [place] [address], [address], Director Medical Surgical: Joel Tamayo MD [facility] Collection Date/Time: [facility] Results Received Date/Time: [facility] Reported Date/Time: Performed By: #### 9 1486, 6304R, 22856, 09041U, 4439, 2782A #### [facility] Default [address] [place] [address] WBC 0-5 Normal < OR = 5 [facility] Patient Services Representative Comment on above: Order Comment: [facility] Testing performed at: [employer], [facility], [address] [place] [address], [address] [place] [address], [address] [place] [address], Director Medical Surgical: Joel Tamayo MD [facility] Collection Date/Time: [facility] Results Received Date/Time: [facility] Reported Date/Time: Performed By: #### 9 1486, 6304R, 57052, 10798C, 4439, 2782A #### [facility] Default [address] [place] [address] Q - VARICELLA-ZOSTER AB (IGG )on 10-08-2021 VARICELLA ZOSTER VIRUS ANTIBODY (IGG) <135.00 Low [facility] Patient Services Representative Comment on above: Order Comment: [facility] Testing performed at: [employer], [facility], [address] [facility], [address] [place] [address], [address] [place] [address], Director Medical Surgical: Joel Tamayo MD [facility] Collection Date/Time: [facility] Results Received Date/Time: [id number] [facility] Reported Date/Time: [id number] Result Comment: Inde x Interpretation --------- <135.00 Negative - Antibody not detected 135.00 - 164.99 Equivocal > or = 165.00 Positive - Antibody detected A positive result indicates that the patient has antibody to VZV but does not differentiate between an active or past infection. The clinical diagnosis must be interpreted in conjunction with the clinical signs and symptoms of the patient. This assay reliably measures immunity due to previous infection but may not be sensitive enough to detect antibodies induced by vaccination. Thus, a negative result in a vaccinated individual does not necessarily indicate susceptibility to VZV infection. A more sensitive test for vaccination-induced immunity is Varicella Zoster Virus Antibody Immunity Screen, ACIF. Performed By: #### 9 1486, 6304R, 72135, 34374Z, 4439, 2782A #### [facility] Default [address] [place] [address] Complete Blood Count Auto Di ffon 09-13-2021 Basophils (Bld) [#/Vol] 0.0 10*3/uL Normal 0.0-0.2 [facility] Comment on above: Result Comment: PERF ORMED BY: [place] [address] PATHOLOGIST PROPELLER ENGINEER JORDON PIÑA M.D. Performed By: #### C BC, CMP #### [facility] [address] [place] [address] [place] Basophils/100 WBC (Bld) 0.4 % Normal . [facility] Comment on above: Performed By: #### C BC, CMP #### [facility] [address] [place] [phone] [place] Eosinophils (Bld) [#/Vol] 0.0 10*3/uL Normal 0.0-0.45 [facility] Comment on above: Performed By: #### C BC, CMP #### [address] Eosinophils/100 WBC (Bld) 0.2 % Normal . [facility] Comment on above: Performed By: #### C BC, CMP #### [facility] [address] Erythrocyte distribution width (RBC) [Ratio] 14.3 % Normal 11.9-15.3 [facility] Comment on above: Performed By: #### C BC, CMP #### [facility] [address] Hematocrit (Bld) [Volume fraction] 32.7 % Low 34.0-46.4 [facility] Comment on above: Performed By: #### C BC, CMP #### [facility] [address] Hemoglobin (Bld) [Mass/Vol] 11.0 g/dL Low 11.8-15.4 [facility] Comment on above: Performed By: #### C BC, CMP #### [facility] [address] Lymphocytes (Bld) [#/Vol] 2.0 10*3/uL Normal 1.00-4.8 [facility] Comment on above: Performed By: #### C BC, CMP #### [place] [address] [place] Lymphocytes/100 WBC (Bld) 30.0 % Normal . [facility] Comment on above: Performed By: #### C BC, CMP #### [facility] [address] [place] [phone] [place] MCH (RBC) [Entitic mass] 28.9 pg Normal 24.7-34.3 [facility] Comment on above: Performed By: #### C BC, CMP #### [place] [address] [place] MCV (RBC) [Entitic vol] 86.2 fL Normal 80-100 [facility] Comment on above: Performed By: #### C BC, CMP #### [facility] [address] Mean Corpuscular HGB Conc 33.6 g/dL Normal 32.0-35.0 [facility] Comment on above: Performed By: #### C BC, CMP #### [facility] [address] [place] [address] [place] Monocytes (Bld) [#/Vol] 0.4 10*3/uL Normal 0.0-0.8 [facility] Comment on above: Performed By: #### C BC, CMP #### [facility] [address] [place] [id number] [place] Monocytes/100 WBC (Bld) 5.9 % Normal . [facility] Comment on above: Performed By: #### C BC, CMP #### [facility] [address] [place] [phone] [place] Neutrophils (Bld) [#/Vol] 4.2 10*3/uL Normal 1.8-7.7 [facility] Comment on above: Performed By: #### C BC, CMP #### [facility] [address] Neutrophils/100 WBC (Bld) 63.5 % Normal . [facility] Comment on above: Performed By: #### C BC, CMP #### [facility] [address] [place] [phone] [place] Nucleated RBC/100 WBC (Bld) [Ratio] 0.0 % Normal 0-0.5 [facility] Comment on above: Performed By: #### C BC, CMP #### [facility] [address] [place] [phone] [place] Platelet mean volume (Bld) [Entitic vol] 11.7 fL High 6.3-10.7 [facility] Comment on above: Performed By: #### C BC, CMP #### [facility] [address] [place] [phone] [place] Platelets (Bld) [#/Vol] 164 10*3/uL Normal 150-450 [facility] Comment on above: Performed By: #### C BC, CMP #### [facility] [address] [place] [phone] [place] RBC (Bld) [#/Vol] 3.80 10*6/uL Normal 3.60-5.00 [facility] Comment on above: Performed By: #### C BC, CMP #### [address] WBC (Bld) [#/Vol] 6.7 10*3/uL Normal 4.5-11.0 [facility] Comment on above: Performed By: #### C BC, CMP #### [address] Comprehensive Metabolic Pane fela 09-13-2021 Albumin [Mass/Vol] 3.8 g/dL Normal 3.2-5.5 [facility] Comment on above: Performed By: #### C BC, CMP #### [address] Albumin/Globulin [Mass ratio] 1.5 {ratio} Normal [facility] Comment on above: Performed By: #### C BC, CMP #### [address] ALP [Catalytic activity/Vol] 34 U/L Normal 32-92 [facility] Comment on above: Result Comment: PERF ORMED BY: [place] [address] PATHOLOGIST PROPELLER ENGINEER JORDON PIÑA M.D. Performed By: #### C BC, CMP #### [address] ALT [Catalytic activity/Vol] 12 U/L Normal 10-60 [facility] Comment on above: Performed By: #### C BC, CMP #### [address] AST [Catalytic activity/Vol] 17 U/L Normal 10-42 [facility] [facility] Comment on above: Performed By: #### C BC, CMP #### [address] Bilirubin [Mass/Vol] 0.4 mg/dL Normal 0.3-1.2 [facility] Comment on above: Performed By: #### C BC, CMP #### [place] [address] [place] Calcium [Mass/Vol] 9.4 mg/dL Normal 8.2-10.2 [facility] Comment on above: Performed By: #### C BC, CMP #### [facility] [address] Chloride [Moles/Vol] 104 mmol/L Normal 95-114 [facility] Comment on above: Performed By: #### C BC, CMP #### [facility] [address] CO2 [Moles/Vol] 24.0 mmol/L Normal 22.0-30.0 [facility] Comment on above: Performed By: #### C BC, CMP #### [facility] [address] Creatinine [Mass/Vol] 0.74 mg/dL Normal 0.44-1.03 [facility] Comment on above: Performed By: #### C BC, CMP #### [facility] [address] Estimated GFR ( Chantel > 60 Normal [facility] Comment on above: Result Comment: GFR estimated reference range: According to KDOQI guidelines, <60 ml/min/1.73m2 is sufficient to diagnose a patient with chronic kidney disease. Performed By: #### C BC, CMP #### [address] Estimated GFR (Non- Am > 60 Normal [facility] Comment on above: Performed By: #### C BC, CMP #### [address] Globulin (S) [Mass/Vol] 2.5 g/dL Normal [facility] Comment on above: Performed By: #### C BC, CMP #### [address] Glucose [Mass/Vol] 58 mg/dL Low 70-100 [facility] Comment on above: Result Comment: [place] om Glucose Reference Range is dependent on time and content of last meal. Glucose of more than 200 mg/dL in a nonstressed, ambulatory subject supports the diagnosis of Diabetes Mellitus. ADA recommended reference range Performed By: #### C BC, CMP #### [facility] [address] [place] [phone] [place] Potassium [Moles/Vol] 3.2 mmol/L Low 3.5-5.1 [facility] Comment on above: Performed By: #### C BC, CMP #### [facility] [address] [place] [phone] [place] Protein [Mass/Vol] 6.3 g/dL Normal 6.1-7.9 [facility] Comment on above: Performed By: #### C BC, CMP #### [facility] [address] [place] [phone] [place] Sodium [Moles/Vol] 137 mmol/L Normal 136-146 [facility] Comment on above: Performed By: #### C BC, CMP #### [facility] [address] [place] [phone] [place] Urea nitrogen [Mass/Vol] 7 mg/dL Low 9-23 [facility] Comment on above: Performed By: #### C BC, CMP #### [facility] [address] [place] [phone] [place] Dipstick and Microscopicon 0 09-13-2021 Appearance (U) Clear Normal Clear [facility] Comment on above: Order Comment: Name Collection Type:: Clean-Voided Midstream Performed By: #### A DDONUAPLUS #### [facility] [address] [place] [phone] [place] Bacteria,Urine None Seen Normal None Seen [facility] Comment on above: Order Comment: Name Collection Type:: Clean-Voided Midstream Performed By: #### A DDONUAPLUS #### [facility] [address] [place] [phone] [place] Bilirubin,Urine Negative Normal Negative [facility] Comment on above: Order Comment: Name Collection Type:: Clean-Voided Midstream Performed By: #### A DDONUAPLUS #### [facility] [address] [place] [phone] [place] Color (U) Yellow Normal Yellow [facility] Comment on above: Order Comment: Name Collection Type:: Clean-Voided Midstream Performed By: #### A DDONUAPLUS #### [facility] [address] Glucose Ql (U) Normal Normal Normal [facility] Comment on above: Order Comment: Name Collection Type:: Clean-Voided Midstream Performed By: #### A DDONUAPLUS #### [facility] [address] [place] [phone] [place] Hyaline Casts,Urine 0-8 Normal 0-8 [facility] Comment on above: Order Comment: Name Collection Type:: Clean-Voided Midstream Result Comment: PERF ORMED BY: [place] [address] PATHOLOGIST PROPELLER ENGINEER JORDON PIÑA M.D. Performed By: #### A DDONUAPLUS #### [facility] [address] [place] [address] Ketones Ql (U) Negative Normal Negative [facility] Comment on above: Order Comment: Name Collection Type:: Clean-Voided Midstream Performed By: #### A DDONUAPLUS #### [facility] [address] [place] [address] Leukocyte esterase Test strip Ql (U) 2+ High Negative [facility] Comment on above: Order Comment: Name Collection Type:: Clean-Voided Midstream Performed By: #### A DDONUAPLUS #### [facility] [address] [place] [address] [place] Nitrite,Urine Negative Normal Negative [facility] Comment on above: Order Comment: Name Collection Type:: Clean-Voided Midstream Performed By: #### A DDONUAPLUS #### [facility] [address] [place] [address] [place] Occult Blood,Urine Negative Normal Negative [facility] Comment on above: Order Comment: Name Collection Type:: Clean-Voided Midstream Result Comment: PERF ORMED BY: [place] [address] PATHOLOGIST PROPELLER ENGINEER JORDON PIÑA M.D. Performed By: #### A DDONUAPLUS #### [address] pH (U) 6.0 [pH] Normal 5.0-9.0 [facility] Comment on above: Order Comment: Name Collection Type:: Clean-Voided Midstream Performed By: #### A DDONUAPLUS #### [address] Protein,Urine Negative Normal Negative [facility] Comment on above: Order Comment: Name Collection Type:: Clean-Voided Midstream Performed By: #### A DDONUAPLUS #### [address] RBC,Urine 3-4 Normal 0-4 [facility] Comment on above: Order Comment: Name Collection Type:: Clean-Voided Midstream Performed By: #### A DDONUAPLUS #### [address] Specificy Clem[place],Urine 1.015 Normal 1.001-1.030 [facility] Comment on above: Order Comment: Name Collection Type:: Clean-Voided Midstream Performed By: #### A DDONUAPLUS #### [address] Squamous Epithelial Cell,Urine 3-4 High 0-2 [facility] Comment on above: Order Comment: Name Collection Type:: Clean-Voided Midstream Performed By: #### A DDONUAPLUS #### [place] [address] [place] Urobilinogen,Urine Normal Normal Normal [facility] Comment on above: Order Comment: Name Collection Type:: Clean-Voided Midstream Performed By: #### A DDONUAPLUS #### [place] [address] [place] WBC,Urine 3-4 Normal 0-4 [facility] Comment on above: Order Comment: Name Collection Type:: Clean-Voided Midstream Performed By: #### A DDONUAPLUS #### [address] Complete Blood Count Auto Di ffon 09-04-2021 Basophils (Bld) [#/Vol] 0.0 10*3/uL Normal 0.0-0.2 [facility] Comment on above: Result Comment: PERF ORMED BY: [place] [address] PATHOLOGIST PROPELLER ENGINEER JORDON PIÑA M.D. Performed By: #### C BC, CMP #### [address] Basophils/100 WBC (Bld) 0.2 % Normal . [facility] Comment on above: Performed By: #### C BC, CMP #### [address] Eosinophils (Bld) [#/Vol] 0.0 10*3/uL Normal 0.0-0.45 [facility] Comment on above: Performed By: #### C BC, CMP #### [address] Eosinophils/100 WBC (Bld) 0.1 % Normal . [facility] Comment on above: Performed By: #### C BC, CMP #### [address] Erythrocyte distribution width (RBC) [Ratio] 14.2 % Normal 11.9-15.3 [facility] Comment on above: Performed By: #### C BC, CMP #### [address] Hematocrit (Bld) [Volume fraction] 37.5 % Normal 34.0-46.4 [facility] Comment on above: Performed By: #### C BC, CMP #### [address] Hemoglobin (Bld) [Mass/Vol] 12.5 g/dL Normal 11.8-15.4 [facility] Comment on above: Performed By: #### C BC, CMP #### [address] Lymphocytes (Bld) [#/Vol] 1.0 10*3/uL Normal 1.00-4.8 [facility] Comment on above: Performed By: #### C BC, CMP #### [facility] [address] Lymphocytes/100 WBC (Bld) 12.6 % Normal . [facility] Comment on above: Performed By: #### C BC, CMP #### [facility] [address] MCH (RBC) [Entitic mass] 28.9 pg Normal 24.7-34.3 [facility] Comment on above: Performed By: #### C BC, CMP #### [facility] [address] MCV (RBC) [Entitic vol] 86.4 fL Normal 80-100 [facility] Comment on above: Performed By: #### C BC, CMP #### [facility] [address] Mean Corpuscular HGB Conc 33.4 g/dL Normal 32.0-35.0 [facility] Comment on above: Performed By: #### C BC, CMP #### [facility] [address] [place] [phone] [place] Monocytes (Bld) [#/Vol] 0.3 10*3/uL Normal 0.0-0.8 [facility] Comment on above: Performed By: #### C BC, CMP #### [facility] [address] [place] [phone] [place] Monocytes/100 WBC (Bld) 4.1 % Normal . [facility] Comment on above: Performed By: #### C BC, CMP #### [facility] [address] [place] [phone] [place] Neutrophils (Bld) [#/Vol] 6.5 10*3/uL Normal 1.8-7.7 [facility] Comment on above: Performed By: #### C BC, CMP #### [facility] [address] Neutrophils/100 WBC (Bld) 83.0 % Normal . [facility] Comment on above: Performed By: #### C BC, CMP #### [facility] [address] Nucleated RBC/100 WBC (Bld) [Ratio] 0.1 % Normal 0-0.5 [facility] Comment on above: Performed By: #### C BC, CMP #### [facility] [address] Platelet mean volume (Bld) [Entitic vol] 11.5 fL High 6.3-10.7 [facility] Comment on above: Performed By: #### C BC, CMP #### [facility] [address] Platelets (Bld) [#/Vol] 172 10*3/uL Normal 150-450 [facility] Comment on above: Performed By: #### C BC, CMP #### [address] RBC (Bld) [#/Vol] 4.34 10*6/uL Normal 3.60-5.00 [facility] Comment on above: Performed By: #### C BC, CMP #### [address] WBC (Bld) [#/Vol] 7.8 10*3/uL Normal 4.5-11.0 [facility] Comment on above: Performed By: #### C BC, CMP #### [address] Comprehensive Metabolic Pane fela 09-04-2021 Albumin [Mass/Vol] 3.9 g/dL Normal 3.2-5.5 [facility] Comment on above: Performed By: #### C BC, CMP #### [address] Albumin/Globulin [Mass ratio] 1.3 {ratio} Normal [facility] Comment on above: Performed By: #### C BC, CMP #### [address] ALP [Catalytic activity/Vol] 35 U/L Normal 32-92 [facility] Comment on above: Performed By: #### C BC, CMP #### [facility] [address] [place] [phone] [place] ALT [Catalytic activity/Vol] 12 U/L Normal 10-60 [facility] Comment on above: Performed By: #### C BC, CMP #### [facility] [address] [place] [phone] [facility] AST [Catalytic activity/Vol] 19 U/L Normal 10-42 [facility] Comment on above: Performed By: #### C BC, CMP #### [facility] [address] Bilirubin [Mass/Vol] 0.6 mg/dL Normal 0.3-1.2 [facility] Comment on above: Performed By: #### C BC, CMP #### [facility] [address] Calcium [Mass/Vol] 9.6 mg/dL Normal 8.2-10.2 [facility] Comment on above: Performed By: #### C BC, CMP #### [facility] [address] [place] [phone] [place] Chloride [Moles/Vol] 104 mmol/L Normal 95-114 [facility] Comment on above: Performed By: #### C BC, CMP #### [facility] [address] [place] [phone] [place] CO2 [Moles/Vol] 21.5 mmol/L Low 22.0-30.0 [facility] Comment on above: Performed By: #### C BC, CMP #### [facility] [address] [place] [phone] [place] Creatinine [Mass/Vol] 0.67 mg/dL Normal 0.44-1.03 [facility] Comment on above: Performed By: #### C BC, CMP #### [facility] [address] [place] [phone] [place] Creatinine Clr Calc Pharmacy 129.72 Normal [facility] Comment on above: Result Comment: PERF ORMED BY: [facility] [address] [place] [address] PATHOLOGIST PROPELLER ENGINEER JORDON PIÑA M.D. Performed By: #### C BC, CMP #### [address] Estimated GFR ( Chantel > 60 Normal [facility] Comment on above: Result Comment: GFR estimated reference range: According to KDOQI guidelines, <60 ml/min/1.73m2 is sufficient to diagnose a patient with chronic kidney disease. Performed By: #### C BC, CMP #### [address] Estimated GFR (Non- Am > 60 Normal [facility] Comment on above: Performed By: #### C BC, CMP #### [address] Globulin (S) [Mass/Vol] 2.9 g/dL Normal [facility] Comment on above: Performed By: #### C BC, CMP #### [address] Glucose [Mass/Vol] 92 mg/dL Normal 70-100 [facility] Comment on above: Result Comment: [place] om Glucose Reference Range is dependent on time and content of last meal. Glucose of more than 200 mg/dL in a nonstressed, ambulatory subject supports the diagnosis of Diabetes Mellitus. ADA recommended reference range Performed By: #### C BC, CMP #### [place] [address] [place] Potassium [Moles/Vol] 4.1 mmol/L Normal 3.5-5.1 [facility] Comment on above: Performed By: #### C BC, CMP #### [place] [address] [place] Protein [Mass/Vol] 6.8 g/dL Normal 6.1-7.9 [facility] Comment on above: Performed By: #### C BC, CMP #### [place] [address] [place] Sodium [Moles/Vol] 136 mmol/L Normal 136-146 [facility] Comment on above: Performed By: #### C BC, CMP #### [facility] [address] [place] [phone] [place] Urea nitrogen [Mass/Vol] 8 mg/dL Low 05-16 [facility] Comment on above: Performed By: #### C BC, CMP #### [facility] [address] [place] [phone] [place] Urinalysison 09-04-2021 Appearance (U) Clear Normal Clear [facility] Comment on above: Order Comment: Name Collection Type:: Clean-Voided Midstream Performed By: #### U A #### [facility] [address] [place] [phone] [place] Bilirubin,Urine Negative Normal Negative [facility] Comment on above: Order Comment: Name Collection Type:: Clean-Voided Midstream Performed By: #### U A #### [facility] [address] [place] [address] [place] Color (U) Yellow Normal Yellow [facility] Comment on above: Order Comment: Name Collection Type:: Clean-Voided Midstream Performed By: #### U A #### [facility] [address] [place] [phone] [place] Glucose Ql (U) Normal Normal Normal [facility] Comment on above: Order Comment: Name Collection Type:: Clean-Voided Midstream Performed By: #### U A #### [facility] [address] [place] [phone] [place] Ketones Ql (U) 1+ High Negative [facility] Comment on above: Order Comment: Name Collection Type:: Clean-Voided Midstream Performed By: #### U A #### [facility] [address] [place] [phone] [place] Leukocyte esterase Test strip Ql (U) Negative Normal Negative [facility] Comment on above: Order Comment: Name Collection Type:: Clean-Voided Midstream Performed By: #### U A #### [facility] [address] [place] [address] [place] Nitrite,Urine Negative Normal Negative [facility] Comment on above: Order Comment: Name Collection Type:: Clean-Voided Midstream Performed By: #### U A #### [place] [address] [place] Occult Blood,Urine Negative Normal Negative [facility] Comment on above: Order Comment: Name Collection Type:: Clean-Voided Midstream Result Comment: PERF ORMED BY: [place] [address] PATHOLOGIST PROPELLER ENGINEER JORDON PIÑA M.D. Performed By: #### U A #### [address] pH (U) 8.5 [pH] Normal 5.0-9.0 [facility] Comment on above: Order Comment: Name Collection Type:: Clean-Voided Midstream Performed By: #### U A #### [place] [address] [place] Protein,Urine Negative Normal Negative [facility] Comment on above: Order Comment: Name Collection Type:: Clean-Voided Midstream Performed By: #### U A #### [address] Specificy [place],Urine 1.011 Normal 1.001-1.030 [facility] Comment on above: Order Comment: Name Collection Type:: Clean-Voided Midstream Performed By: #### U A #### [place] [address] [place] Urobilinogen,Urine Normal Normal Normal [facility] Comment on above: Order Comment: Name Collection Type:: Clean-Voided Midstream Performed By: #### U A #### [place] [address] [place] ABO, External Resulton 08-26 ABO, External Result A [employer] Work Phone: HIV, External Resulton 08-26 HIV, External Result Non-Reactive [employer] Phone: Hepatitis B, External Result on 08-26-2021 Hep B, External Result Non-Reactive [employer] Work Phone: No Panel Informationon 08-26 [employer] Work Phone: RPR, External Labon 08-26-19 22 RPR, External Result Non-Reactive [employer] Work Phone: Rh Factor, External Resulton 08-26-2021 Rh Factor, External Result + [employer] Work Phone: Rubella Titer, External Resu lton 08-26-2021 Rubella Titer, External Result [employer] Work Phone: CBC Auto Differentialon 07-24 Basophils (Bld) [#/Vol] 0.0 10*3/uL 0.0 - 0.1 K[facility] Basophils/100 WBC (Bld) 0.4 % 0.1 - 1.2 % [facility] Eosinophils (Bld) [#/Vol] 0.0 10*3/uL 0.0 - 0.4 K/uL [facility] Eosinophils/100 WBC (Bld) 0.1 % Low 0.7 - 5.8 % [facility] Hematocrit (Bld) [Volume fraction] 38.6 % 37.0 - 47.0 % [facility] Hemoglobin.gastroint estinal spec 1 Ql (Stl) 12.9 g/dL 11.2 - 15.7 g/dL [facility] Immature granulocytes (Bld) [#/Vol] 0.0 10*3/uL [facility] Immature granulocytes/100 WBC (Bld) 0.3 % [facility]ga Interpretation and review of laboratory results Abnormal [facility] Lymphocytes (Bld) [#/Vol] 1.2 10*3/uL 1.2 - 3.7 K/uL [facility] Lymphocytes/100 WBC (Bld) 15.8 % [facility] MCH (RBC) [Entitic mass] 28.8 pg 25.6 - 32.2 pg [facility] MCHC (RBC) [Mass/Vol] 33.4 % 32.2 - 35.5 % [facility] MCV (RBC) [Entitic vol] 86.2 fL 79.4 - 94.8 fL [facility] Monocytes (Bld) [#/Vol] 0.4 10*3/uL 0.2 - 0.9 K/uL [facility] Monocytes/100 WBC (Bld) 5.1 % 4.7 - 12.5 % [facility] Neutrophils Absolute 6.0 K/uL 1.6 - 6 .1 K/uL [facility] Neutrophils/100 WBC (Bld) 78.3 % High 34.0 - 71.1 % [facility] Platelet distribution width (Bld) [Ratio] 13.3 % 11.7 - 14.4 % [facility] PLATELET SLIDE REVIEW Adequate [facility] Platelets (Bld) [#/Vol] 188 10*3/uL 182 - 369 K/uL [facility] RBC (Bld) [#/Vol] 4.48 10*6/uL [facility] SLIDE REVIEW see below [facility] Comment on above: Slide review agrees with reported results WBC (Bld) [#/Vol] 7.6 10*3/uL 4.0 - 10.0 K/uL [facility] CBC With Platelet and Differ entialon 08-11-2021 Platelet Slide Review Adequate Normal [facility] Comment on above: Performed By: #### C BCWD #### [facility] [address] [place] [address] Slide Review see below [facility] Comment on above: Result Comment: Slid e review agrees with reported results Performed By: #### C BCWD #### [facility] [address] [place] [address] Abs Imm Granulocytes 0.0 K/uL Normal [facility] Comment on above: Performed By: #### C BCWD #### [facility] [address] [place] [address] Basophils (Bld) [#/Vol] 0.0 10*3/uL Normal 0.0-0.1 [facility] Comment on above: Performed By: #### C BCWD #### [facility] [address] [place] [address] Basophils/100 WBC (Bld) 0.4 % Normal 0.1-1.2 [facility] Comment on above: Performed By: #### C BCWD #### [facility] [address] [place] [address] Eosinophils (Bld) [#/Vol] 0.0 10*3/uL Normal 0.0-0.4 [facility] Comment on above: Performed By: #### C BCWD #### [facility] [address] [place] [address] Eosinophils/100 WBC (Bld) 0.1 % Low 0.7-5.8 [facility] Comment on above: Performed By: #### C BCWD #### [facility] [address] [place] [address] Erythrocyte distribution width (RBC) [Ratio] 13.3 % Normal 11.7-14.4 [facility] Comment on above: Performed By: #### C BCWD #### [facility] [address] [place] [address] Hematocrit (Bld) [Volume fraction] 38.6 % Normal 37.0-47.0 [facility] Comment on above: Performed By: #### C BCWD #### [facility] [address] [place] [address] Hemoglobin (Bld) [Mass/Vol] 12.9 g/dL Normal 11.2-15.7 [facility] Comment on above: Performed By: #### C BCWD #### [facility] [address] [place] [address] Imm Granulocytes 0.3 % Normal [facility] Comment on above: Performed By: #### C BCWD #### [facility] [address] [place] [address] Lymphocytes (Bld) [#/Vol] 1.2 10*3/uL Normal 1.2-3.7 [facility] Comment on above: Performed By: #### C BCWD #### [facility] [address] [place] [address] Lymphocytes/100 WBC (Bld) 15.8 % Normal [facility] Comment on above: Performed By: #### C BCWD #### [facility] [address] [place] [address] MCH (RBC) [Entitic mass] 28.8 pg Normal 25.6-32.2 [facility] Comment on above: Performed By: #### C BCWD #### [facility] [address] [place] [address] MCHC 33.4 % Normal 32.2-35.5 [facility] Comment on above: Performed By: #### C BCWD #### [facility] [address] [place] [address] MCV (RBC) [Entitic vol] 86.2 fL Normal 79.4-94.8 [facility] Comment on above: Performed By: #### C BCWD #### [facility] [address] [place] [address] Monocytes (Bld) [#/Vol] 0.4 10*3/uL Normal 0.2-0.9 [facility] Comment on above: Performed By: #### C BCWD #### [facility] [address] [place] [address] Monocytes/100 WBC (Bld) 5.1 % Normal 4.7-12.5 [facility] [facility] Comment on above: Performed By: #### C BCWD #### [facility] [address] [place] [address] Neutrophils (Bld) [#/Vol] 6.0 10*3/uL Normal 1.6-6.1 [facility] Comment on above: Performed By: #### C BCWD #### [facility] [address] [place] [address] Neutrophils/100 WBC (Bld) 78.3 % Critically high 34.0-71.1 [facility] Comment on above: Performed By: #### C BCWD #### [facility] [address] [place] [address] Platelets (Bld) [#/Vol] 188 10*3/uL Normal 182-369 [facility] Comment on above: Performed By: #### C BCWD #### [facility] [address] [place] [address] RBC (Bld) [#/Vol] 4.48 10*6/uL Normal 3.93-5.22 [facility] Comment on above: Performed By: #### C BCWD #### [facility] [address] [place] [address] WBC (Bld) [#/Vol] 7.6 10*3/uL Normal 4.0-10.0 [facility] Comment on above: Performed By: #### C BCWD #### [facility] [address] [place] [address] Comprehensive Metabolic Pane fela 08-11-2021 Albumin [Mass/Vol] 4.5 g/dL Normal 3.5-4.6 [facility] Comment on above: Performed By: #### C MP #### [facility] [address] [place] [address] ALP [Catalytic activity/Vol] 51 U/L Normal 40-130 [facility] Comment on above: Performed By: #### C MP #### [facility] [address] [place] [address] ALT [Catalytic activity/Vol] 8 U/L Normal 0-33 [facility] Comment on above: Performed By: #### C MP #### [facility] [address] [place] [address] Anion gap [Moles/Vol] 16 mmol/L Critically high 9-15 [facility] Comment on above: Performed By: #### C MP #### [facility] [address] [place] [address] AST [Catalytic activity/Vol] 15 U/L Normal 0-35 [facility] Comment on above: Performed By: #### C MP #### [facility] [address] [place] [address] Bilirubin [Mass/Vol] 0.4 mg/dL Normal 0.2-0.7 [facility] Comment on above: Performed By: #### C MP #### [facility] [address] [place] [address] Calcium [Mass/Vol] 9.4 mg/dL Normal 8.5-9.9 [facility] Comment on above: Performed By: #### C MP #### [facility] [address] [place] [address] Chloride [Moles/Vol] 100 mmol/L Normal 95-107 [facility] Comment on above: Performed By: #### C MP #### [facility] [address] [place] [address] CO2 [Moles/Vol] 21 mmol/L Normal 20-31 [facility] Comment on above: Performed By: #### C MP #### [facility] [address] [place] [address] Creatinine [Mass/Vol] 0.64 mg/dL Normal 0.50-0.90 [facility] Comment on above: Performed By: #### C MP #### [facility] [address] [place] [address] GFR >60.0 Normal >60 [facility] Comment on above: Result Comment: >60 mL/min/1.73m2 EGFR, calc. for ages 18 and older using the MDRD formula (not corrected for weight), is valid for stable renal function. Performed By: #### C MP #### [facility] [address] [place] [address] GFR/1.73 sq M.predicted among blacks MDRD (S/P/Bld) [Vol rate/Area] mL/min/{1.73_m2} Normal >60 [facility] Comment on above: Result Comment: >60 mL/min/1.73m2 EGFR, calc. for ages 18 and older using the MDRD formula (not corrected for weight), is valid for stable renal function. Performed By: #### C MP #### [facility] [address] [place] [address] Globulin (S) [Mass/Vol] 2.6 g/dL Normal 2.3-3.5 [facility] Comment on above: Performed By: #### C MP #### [facility] [address] [place] [address] Glucose [Mass/Vol] 89 mg/dL Normal 70-99 [facility] Comment on above: Performed By: #### C MP #### [facility] [address] [place] [address] Potassium [Moles/Vol] 3.9 mmol/L Normal 3.4-4.9 [facility] Comment on above: Performed By: #### C MP #### [facility] [address] [place] [address] Protein [Mass/Vol] 7.1 g/dL Normal 6.3-8.0 [facility] Comment on above: Performed By: #### C MP #### [facility] [address] [place] [address] Sodium [Moles/Vol] 137 mmol/L Normal 135-144 [facility] Comment on above: Performed By: #### C MP #### [facility] [address] [place] [address] Urea nitrogen [Mass/Vol] 7 mg/dL Normal 6-20 [facility] Comment on above: Performed By: #### C MP #### [facility] [address] [place] [address] Albumin [Mass/Vol] 4.5 g/dL 3.5 - 4.6 g/dL [facility] ALP (Bld) [Catalytic activity/Vol] 51 U/L 40 - 130 U/L [facility] ALT [Catalytic activity/Vol] 8 U/L 0 - 33 U/L [facility] Anion gap [Moles/Vol] 16 mmol/L High [facility] AST [Catalytic activity/Vol] 15 U/L 0 - 35 U/L [facility] Bilirubin [Mass/Vol] 0.4 mg/dL 0.2 - 0 .7 mg/dL [facility] Calcium [Mass/Vol] 9.4 mg/dL 8.5 - 9.9 mg/dL [facility] Chloride [Moles/Vol] 100 mmol/L [facility] CO2 [Moles/Vol] 21 mmol/L [facility] Creatinine [Mass/Vol] 0.64 mg/dL 0.50 - 0.90 mg/dL [facility] Free PSA/Total PSA [Mass fraction] 7.1 g/dL 6.3 - 8.0 g/dL [facility] GFR >60.0 >60 [facility] Comment on above: >60 mL/min/1.73m2 EG FR, calc. for ages 18 and older using the MDRD formula (not corrected for weight), is valid for stable renal function. GFR Non- >60.0 >60 [facility] Comment on above: >60 mL/min/1.73m2 EG FR, calc. for ages 18 and older using the MDRD formula (not corrected for weight), is valid for stable renal function. Globulin (S) [Mass/Vol] 2.6 g/dL 2.3 - 3.5 g/dL [facility] Glucose [Mass/Vol] 89 mg/dL 70 - 99 mg/dL [facility] Interpretation and review of laboratory results [facility]normal [facility] Potassium [Moles/Vol] 3.9 mmol/L [facility] Sodium [Moles/Vol] 137 mmol/L [facility] Urea nitrogen (BldV) [Mass/Vol] 7 mg/dL 6 - 20 mg/dL [facility] HCG Quanton 08-11-2021 HCG Quant 10260.0 mIU/mL Normal [facility] Comment on above: Result Comment: Gest ational Age Expected HCG values (mIU/ml) 3 weeks 5-72 4 weeks 10-708 5 weeks 217-8,245 6 weeks 152-32,177 8 weeks 31,366-149,094 12 weeks 27,107-201,615 16 weeks 8,904-55,332 18 weeks 9,649-55,271 Performed By: #### H CGQ #### [facility] [address] [place] [address] HCG, Quantitative, on 08-11-2021 hCG Quant 47692 mIU/mL [facility] Comment on above: Gestational Age Expe cted HCG values (mIU/ml) 3 weeks 5-72 4 weeks 10-708 5 weeks 217-8,245 6 weeks 152-32,177 8 weeks 31,366-149,094 12 weeks 27,107-201,615 16 weeks 8,904-55,332 18 weeks 9,649-55,271 Magnesiumon 08-11-2021 Magnesium [Mass/Vol] 2.0 mg/dL Normal 1.7-2.4 [facility] Comment on above: Performed By: #### M G #### [facility] [address] [place] [address] Magnesium [Mass/Vol] 2.0 mg/dL 1.7 - 2 .4 mg/dL [facility] No Panel Informationon 08-11 [facility] Urinalysis, reflex to cultur wilder 08-11-2021 Bilirubin Ql (U) Small Normal Negative [facility] Comment on above: Performed By: #### U AR #### [facility] [address] [place] [address] Clarity (U) Clear Normal Clear [facility] Comment on above: Performed By: #### U AR #### [facility] [address] [place] [address] Color (U) Yellow Normal Straw/[place]aic [facility] Comment on above: Performed By: #### U AR #### [facility] [address] [place] [address] Glucose Ql (U) Negative Normal Negative [facility] Comment on above: Performed By: #### U AR #### [facility] [address] [place] [address] Hemoglobin Ql (U) Negative Normal Negative [facility] Comment on above: Performed By: #### U AR #### [facility] [address] [place] [address] Ketones Ql (U) >=160 Normal Negative [facility] Comment on above: Performed By: #### U AR #### [facility] [address] [place] [address] Leukocyte esterase Test strip Ql (U) Negative Normal Negative [facility] Comment on above: Performed By: #### U AR #### [facility] [address] [place] [address] Nitrite Ql (U) Negative Normal Negative [facility] Comment on above: Performed By: #### U AR #### [facility] [address] [place] [address] pH (U) 6.5 [pH] Normal 5.0-9.0 [facility] Comment on above: Performed By: #### U AR #### [facility] [address] [place] [address] Protein Ql (U) Negative Normal Negative [facility] Comment on above: Performed By: #### U AR #### [facility] [address] [place] [address] Specific gravity (U) [Rel density] >=1.030 Normal 1.005-1.03 [facility] Comment on above: Performed By: #### U AR #### [facility] [address] [place] [address] Urine Reflexed to Culture Not Indicated Normal [facility] Comment on above: Performed By: #### U AR #### [facility] [address] [place] [address] Urobilinogen Qn (U) 0.2 {Virginie'U}/dL Normal < 2.0 [facility] Comment on above: Performed By: #### U AR #### [facility] [address] [place] [address] Urine Reflex to Cultureon Bilirubin Urine Small Negative [facility] Blood, Urine Negative Negative [employer] Clarity, UA Clear Clear [employer] Color, UA Yellow Straw/Yellow [employer] Glucose, Ur Negative Negative mg/dL [employer] Ketones Ql (U) >=160 Negative mg/dL [employer] [facility] Leukocyte esterase Test strip Ql (U) Negative Negative [facility] Nitrite, Urine Negative Negative [facility] pH, UA 6.5 [facility] Protein, UA Negative Negative mg/dL [facility] Specific [place], UA >=1.030 [facility] Urine Reflex to Culture Not Indicated [facility] Urobilinogen, Urine 0.2 <2.0 E.U./dL [facility] Urinalysis, reflex to cultur wilder 08-08-2021 Bilirubin Ql (U) Negative Normal Negative [facility] Comment on above: Performed By: #### U AR #### [facility] [address] [place] [address] Clarity (U) Clear Normal Clear [facility] Comment on above: Performed By: #### U AR #### [facility] [address] [place] [address] Color (U) Light yellow Normal Straw/[place] [facility] Comment on above: Performed By: #### U AR #### [facility] [address] [place] [address] Glucose Ql (U) Negative Normal Negative [facility] Comment on above: Performed By: #### U AR #### [facility] [address] [place] [address] Hemoglobin Ql (U) Negative Normal Negative [facility] Comment on above: Performed By: #### U AR #### [facility] [address] [place] [address] Ketones Ql (U) Negative Normal Negative [facility] Comment on above: Performed By: #### U AR #### [facility] [address] [place] [address] Leukocyte esterase Test strip Ql (U) Negative Normal Negative [facility] Comment on above: Performed By: #### U AR #### [facility] [address] [place] [address] Nitrite Ql (U) Negative Normal Negative [facility] Comment on above: Performed By: #### U AR #### [facility] [address] [place] [address] pH (U) 6.5 [pH] Normal 5.0-9.0 [facility] Comment on above: Performed By: #### U AR #### [facility] [address] [place] [address] Protein Ql (U) Negative Normal Negative [facility] Comment on above: Performed By: #### U AR #### [facility] [address] [place] [address] Specific gravity (U) [Rel density] 1.010 Normal 1.005-1.03 [facility] Comment on above: Performed By: #### U AR #### [facility] [address] [place] [address] Urine Reflexed to Culture Not Indicated Normal [facility] Comment on above: Performed By: #### U AR #### [facility] [address] [place] [address] Urobilinogen Qn (U) 0.2 {Virginie'U}/dL Normal < 2.0 [facility] Comment on above: Performed By: #### U AR #### [facility] [address] [place] [address] Dipstick and Microscopicon 0 05-17-2021 Appearance (U) Cloudy Critically abnormal Clear [facility] Comment on above: Order Comment: Name Collection Type:: Clean-Voided Midstream Performed By: #### A DDONUAPLUS, CUU, UHCG #### [facility] [address] [place] [phone] [place] Bacteria,Urine None Seen Normal None Seen [facility] Comment on above: Order Comment: Name Collection Type:: Clean-Voided Midstream Performed By: #### A DDONUAPLUS, CUU, UHCG #### [facility] [address] [place] [phone] [place] Bilirubin,Urine Negative Normal Negative [facility] Comment on above: Order Comment: Name Collection Type:: Clean-Voided Midstream Performed By: #### A DDONUAPLUS, CUU, UHCG #### [facility] [address] [place] [address] Color (U) Yellow Normal Yellow [facility] Comment on above: Order Comment: Name Collection Type:: Clean-Voided Midstream Performed By: #### A DDONUAPLUS, CUU, UHCG #### [facility] [address] [place] [address] Glucose Ql (U) Normal Normal Normal [facility] Comment on above: Order Comment: Name Collection Type:: Clean-Voided Midstream Performed By: #### A DDONUAPLUS, CUU, UHCG #### [facility] [address] [place] [address] [place] Hyaline Casts,Urine 0-8 Normal 0-8 [facility] Comment on above: Order Comment: Name Collection Type:: Clean-Voided Midstream Performed By: #### A DDONUAPLUS, CUU, UHCG #### [facility] [address] [place] [address] Ketones Ql (U) Negative Normal Negative [facility] Comment on above: Order Comment: Name Collection Type:: Clean-Voided Midstream Performed By: #### A DDONUAPLUS, CUU, UHCG #### [facility] [address] [place] [address] Leukocyte esterase Test strip Ql (U) 4+ High Negative [facility] Comment on above: Order Comment: Name Collection Type:: Clean-Voided Midstream Performed By: #### A DDONUAPLUS, CUU, UHCG #### [facility] [address] [place] [address] [place] Nitrite,Urine Negative Normal Negative [facility] Comment on above: Order Comment: Name Collection Type:: Clean-Voided Midstream Performed By: #### A DDONUAPLUS, CUU, UHCG #### [facility] [address] [place] [address] [place] Occult Blood,Urine 3+ High Negative [facility] Comment on above: Order Comment: Name Collection Type:: Clean-Voided Midstream Performed By: #### A DDONUAPLUS, CUU, UHCG #### [facility] [address] [place] [address] pH (U) 7.0 [pH] Normal 5.0-9.0 [facility] Comment on above: Order Comment: Name Collection Type:: Clean-Voided Midstream Performed By: #### A DDONUAPLUS, CUU, UHCG #### [address] Protein (U) [Mass/Vol] 30 mg/dL High Negative [facility] Comment on above: Order Comment: Name Collection Type:: Clean-Voided Midstream Performed By: #### A DDONUAPLUS, CUU, UHCG #### [address] RBC,Urine 10-19 High 0-4 [facility] Comment on above: Order Comment: Name Collection Type:: Clean-Voided Midstream Performed By: #### A DDONUAPLUS, CUU, UHCG #### [address] Specificy [place],Urine 1.008 Normal 1.001-1.030 [facility] Comment on above: Order Comment: Name Collection Type:: Clean-Voided Midstream Performed By: #### A DDONUAPLUS, CUU, UHCG #### [address] Squamous Epithelial Cell,Urine 3-4 High 0-2 [facility] Comment on above: Order Comment: Name Collection Type:: Clean-Voided Midstream Performed By: #### A DDONUAPLUS, CUU, UHCG #### [address] Urobilinogen,Urine Normal Normal Normal [facility] Comment on above: Order Comment: Name Collection Type:: Clean-Voided Midstream Performed By: #### A DDONUAPLUS, CUU, UHCG #### [place] [address] [place] WBC,Urine Innumerable High 0-4 [facility] Comment on above: Order Comment: Name Collection Type:: Clean-Voided Midstream Performed By: #### A DULCE HAYESU, UHCG #### [facility] [address] [place] [address] HCG,Urineon 05-17-2021 Beta HCG ( test) Ql (U) Negative [facility] Comment on above: Order Comment: Name Collection Type:: Clean-Voided Midstream Result Comment: PERF ORMED BY: [place] [address] PATHOLOGIST PROPELLER ENGINEER JORDON PIÑA M.D. Performed By: #### A EULA HAYES, UHCG #### [facility] [address] [place] [address] Urine Cultureon 05-17-2021 Bacteria identified Cx Nom (U) 40,000 colonies/ml mixed bacterial skin contaminants 2 Days PERFORMED BY: [place] [address] PATHOLOGIST PROPELLER ENGINEER JORDON PIÑA M.D. [facility] Comment on above: Performed By: #### A EULA HAYES, UHCG #### [facility] [address] [place] [address] Clinical Event Note-Fainting with IV starton 02-10-2020 Clinical Event Note-Fainting with IV start Clinical Event: Clinical Event Note: TopicFainting with IV start Details Received call from MRI stating that patient fainted after IV placement. Vomited on awaking. Did not fall, no injuries. Arrived to find patient sitting up I chair, AOX3, pale and slightly diaphoretic. Pt states she is not diabetic and did eat today. Vital signs stable, HR 74, B/P 104/54, 100% on room air. Pt has a ride home and feels she is back to her baseline. Advised Pt to alert practitioner before any procedures so that she can lay down prior. Electronic Signatures: Ree Martin) (Signed 10-Feb-2020 15:08) Authored: Clinical Event Last Updated: 10-Feb-2020 15:08 by Ree Martin) [facility] VASC LAB Carotid Artery Dupl ex Ultrasounon 02-10-2020 VASC LAB Carotid Artery Duplex Ultrasoun [facility] [address] [place] [address] Vascular Lab Report Carotid Artery Duplex Ultrasound Patient Name: ZOHAIB HAQUE Reading Physician: [id number] Irizarry MD Study Date: 02/10/2020 Referring Physician: Sunni Irizarry MD MRN/PID: [id number] PCP: Accession/Order#: [id number] CC Report to: Date of : 2000 Technologist: Naa Moralez Gender: F Technologist 2: Admission Status: Outpatient Location Performed: [facility] Diagnosis/ICD: G45.3-Amaurosis fugax Procedure/CPT: 11839 Cerebrovacular Carotid Duplex scan complete-[id number] Patient History: No pertinent past medical history. CONCLUSIONS: Right Carotid: Findings are consistent with less than 50% stenosis of the right proximal ICA. Laminar flow seen by color Doppler. Right external carotid artery appears patent with no evidence of stenosis. The right vertebral artery is patent with antegrade flow. No evidence of hemodynamically significant stenosis in the right subclavian. Left Carotid: Findings are consistent with less than 50% stenosis of the left proximal ICA. Left external carotid artery appears patent with no evidence of stenosis. The left vertebral artery is patent with antegrade flow. No evidence of hemodynamically significant stenosis in the left subclavian. Imaging & Doppler Findings: Right Plaque Morph: No plaque identified in the right carotid artery. Left Plaque Morph: No plaque identified in the left carotid artery. Right Left PSV EDV PSV EDV 168 cm/s 31 cm/s CCA P 158 cm/s 32 cm/s 139 cm/s 37 cm/s CCA D 108 cm/s 32 cm/s 86 cm/s 37 cm/s ICA P 110 cm/s 34 cm/s 88 cm/s 36 cm/s ICA M 95 cm/s 44 cm/s 86 cm/s 36 cm/s ICA D 107 cm/s 50 cm/s 129 cm/s 20 cm/s ECA 96 cm/s 12 cm/s 68 cm/s 21 cm/s Vertebral 74 cm/s 23 cm/s 154 cm/s Subclavian Proximal 157 cm/s Right Left ICA/CCA Ratio 0.6 1.0 [id number] Wicho Irizarry MD Final Normal [facility] [place] Signs Date Time Vital Sign Value Performing Clinician Facility 05-01-2023 08:00-0400 Body height 172.72 cm Quiana Naranjo Other [facility] Other 05-01-2023 08:00-0400 Body mass index (BMI) [Ratio] 19 kg/m2 Quiana Naranjo Other [facility] Other 05-01-2023 08:00-0400 Body temperature 98.6 [degF] Quiana Naranjo Other [facility] Other 05-01-2023 08:00-0400 Body weight 56.7 kg Quiana Naranjo Other [facility] Other 05-01-2023 08:00-0400 Diastolic blood pressure 70 mm[Hg] Quiana Naranjo Other [facility] Other 05-01-2023 08:00-0400 Respiratory rate 16 /min Quiana Naranjo Other [facility] Other 05-01-2023 08:00-0400 SaO2% (BldA) [Mass fraction] 98 % Quiana Naranjo Other [facility] Other 05-01-2023 08:00-0400 Systolic blood pressure 114 mm[Hg] Quiana Naranjo Other [facility] Other 03-23-2022 22:22-0400 Body temperature 98.01 [degF] Noemi YATES Work Phone: [facility] [employer] 03-23-2022 22:22-0400 Diastolic blood pressure 58 mm[Hg] Noemi Pool [employer] - CNM Work Phone: [facility] [employer] 03-23-2022 22:22-0400 Heart rate 83 /min Noemi Pool [employer] - CNM Work Phone: [facility] [employer] 03-23-2022 22:22-0400 Respiratory rate 16 /min Noemi Pool [employer] - CNM Work Phone: [facility] [employer] 03-23-2022 22:22-0400 Systolic blood pressure 115 mm[Hg] Noemi Pool [employer] - CNM Work Phone: [facility] [employer] 08-11-2021 17:20-0500 Heart rate 73 /min Toni Carlson MD Work Phone: [employer] 08-11-2021 17:20-0500 Respiratory rate 16 /min Toni Carlson MD Work Phone: [employer] 08-11-2021 17:20-0500 SaO2% (BldA) [Mass fraction] 100 % Toni Carlson MD Work Phone: [employer] 08-11-2021 15:32-0500 Body mass index (BMI) [Ratio] 17.22 kg/m2 Toni Carlson MD Work Phone: [employer] 08-11-2021 15:32-0500 Body temperature 97.7 [degF] Toni Carlson MD Work Phone: [employer] 08-11-2021 15:32-0500 Body weight 54.43 kg Toni Carlson MD Work Phone: [employer] 08-11-2021 15:32-0500 Diastolic blood pressure 70 mm[Hg] Toni Carlson MD Work Phone: [employer] 08-11-2021 15:32-0500 Systolic blood pressure 115 mm[Hg] Toni Carlson MD Work Phone: [facility] Encounters Encounter Date Encounter Type Care Provider Facility Start: 08-26-2023 End: 08-26-2023 ambulatory EMILY CHENG Not Available Start: 08-22-2023 End: 08-22-2023 Emergency department patient visit Luis F Reaves Facility:[facility] Start: 07-29-2023 End: 07-29-2023 ambulatory LACI ROULA Not Available Start: 07-23-2023 End: 07-24-2023 ambulatory LACI R ROULA Facility:[facility] Start: 07-14-2023 End: 07-14-2023 Emergency department patient visit Brock Watson Facility:[facility] Start: 07-13-2023 End: 07-13-2023 ambulatory YANIV MCMILLAN Facility:[facility] Start: 07-08-2023 End: 07-08-2023 ambulatory Quiana Burak Other [employer] Other Start: 07-08-2023 Telephone encounter Quiana Ochoamer [facility] [place] Start: 07-06-2023 End: 07-06-2023 ambulatory LACI CLAYO Not Available Start: 07-06-2023 End: 07-06-2023 Emergency department patient visit Quiana Naranjo Facility:[facility] Start: 06-22-2023 End: 06-22-2023 ambulatory Quiana Naranjo Other [employer] Other Start: 06-22-2023 Telephone encounter Quiana [facility] Start: 06-19-2023 End: 06-19-2023 Emergency department patient visit Quiana Naranjo Facility:[facility] Start: 05-01-2023 End: 05-01-2023 ambulatory Quiana Naranjo Other [employer] Other Start: 05-01-2023 Encounter for genera l adult medical examination without abnormal findings Quiana Naranjo [facility] [place] Start: 05-01-2023 Initial preventive medicine new pt age 18-39yrs Quiana Naranjo [facility] [place] Start: 03-23-2022 End: 03-23-2022 Subsequent hospital visit by physician Noemi Rene APRN - [facility] Work Phone: [facility] Start: 08-11-2021 End: 08-11-2021 Emergency department patient visit QUIANA N [facility] Start: 08-11-2021 End: 08-11-2021 Emergency department patient visit Toni Carlson MD Work Phone: [facility] ED Comment on above: Mild hyperemesis gra vidarum, antepartum (Primary Dx) Start: 08-08-2021 End: 08-08-2021 Emergency department patient visit QUIANA N [facility] Start: 08-07-2021 Chart Update Quiana Holman er Work Phone: [facility] Work Phone: Procedures Date Procedure Procedure Detail Performing Clinician Start: 03-23-2022 Urnls dip stick/tabl et rgnt auto w/o microscopy Noemi Rene APRN - [facility] Work Phone: Start: 08-26-2021 ABO, EXTERNAL RESULT Hi celestinoical Provider Start: 08-26-2021 HEPATITIS B, EXTERNAL RESULT Historical Provider Start: 08-26-2021 HIV, EXTERNAL RESULT Hi padmini Provider Start: 08-26-2021 RH FACTOR, EXTERNAL RESULT Historical Provider Start: 08-26-2021 RPR, EXTERNAL RESULT Hi storical Provider Start: 08-26-2021 RUBELLA TITER, EXTER NAL RESULT Historical Provider Start: 08-11-2021 Urnls dip stick/tabl et rgnt auto w/o microscopy Toni Carlson MD Work Phone: Start: 08-11-2021 Comprehensive metabolic panel Toni Carlson MD Work Phone: Start: 02-20-2020 Follow-up visit Start: 02-10-2020 Echocardiography Start: 01-17-2020 Follow-up visit Plan of Treatment Date Care Activity Detail Author Start: 04-24-2022 Influenza vaccination [facility] (# 1[facility] [employer] Start: 04-24-2021 Influenza vaccination Flu vaccine (# 1) [facility] Start: 2020 DTaP/Tdap/Td vaccine (1 - Tdap) DTaP/Tdap/Td vaccine (1 - Tdap) [facility] [employer] Start: 2006 COVID-19 Vaccine (1) COVID-19 [facility]in e [facility] Start: 2001 COVID-19 Vaccine (#1) COVID-19 Vacci ne (#1) [facility] [employer] End: 03-23-2022 Bacteria identified in Urine by Culture [facility] Phone: Comment on above: One Time for 1 Occur rences starting 03/23/2022 until 03/23/2022 Nonrebreather mask oxygen Nonreb reather mask oxygen Respiratory Care Routine As directed - RT (PRN) until discontinued starting 03/23/2022 [facility] Phone: Comment on above: As directed - RT (DE N) until discontinued starting 03/23/2022 End: 03-23-2022 SVE SVE Point of Care Testing Routine One Time for 1 Occurrences starting 03/23/2022 until 03/23/2022 [facility] Phone: Comment on above: One Time for 1 Occur rences starting 03/23/2022 until 03/23/2022 Payers Date Payer Category Payer Unknown [id number] 2015 Unknown [employer] [id number] 2015-Present [phone] [address] [place] [address] [id number] 2001 Unknown [id number] 2001 Unknown [id number] 2001 Unknown [id number] 2001 Unknown [id number] 2001 Unknown [id number] 2001 Unknown [id number] 2001 Unknown [id number] 2001 Unknown [id number] 2001 Unknown [id number] 2001 Unknown [id number] 2001 Unknown [id number] Unknown [facility] MEDICAID Social History Date Type Detail Facility Non-smoker Non-smoker [facility] Work Phone: Start: 08-08-2021 End: 03-23-2022 Tobacco smoking status NHIS Never smoked tobacco [employer] Phone: Start: 08-08-2021 End: 03-23-2022 Tobacco use and exposure Smokeless tobacco non-user [employer] Phone: Start: 08-11-2021 End: 03-23-2022 Alcohol intake Lifetime non-drinker (finding) [employer] Phone: Start: 08-08-2021 History SDOH Alcohol Frequency 1 [employer] Phone: Start: 2001 Sex Assigned At Not on file [facility] [employer] [place] Work Phone: Start: 03-13-2022 End: 03-23-2022 Exposure to SARS-CoV-2 (event) Not sure [employer] Start: 07-11-2021 JACKY [employer] Work Phone: Sex Assigned At Sex Assigned At [facility] [employer] Other Clinical Notes 08-11-2021 to 08-22-2023 Note Date & Type Note Facility 08-22-2023 Note Education Materials Infectious Disease Upper Respiratory Infection, Adult An upper respiratory infection (URI) is a common viral infection of the nose, throat, and upper air passages that lead to the lungs. The most common type of URI is the common cold. URIs usually get better on their own, without medical treatment. What are the causes? A URI is caused by a virus. You may catch a virus by: ? Breathing in droplets from an infected person's cough or sneeze. ? Touching something that has been exposed to the virus (is contaminated) and then touching your mouth, nose, or eyes. What increases the risk? You are more likely to get a URI if: ? You are very young or very old. ? You have close contact with others, such as at work, school, or a health care facility. ? You smoke. ? You have long-term (chronic) heart or lung disease. ? You have a weakened disease-fighting system (immune system). ? You have nasal allergies or asthma. ? You are experiencing a lot of stress. ? You have poor nutrition. What are the signs or symptoms? A URI usually involves some of the following symptoms: ? Runny or stuffy (congested) nose. ? Cough. ? Sneezing. ? Sore throat. ? Headache. ? Fatigue. ? Fever. ? Loss of appetite. ? Pain in your forehead, behind your eyes, and over your cheekbones (sinus pain). ? Muscle aches. ? Redness or irritation of the eyes. ? Pressure in the ears or face. How is this diagnosed? This condition may be diagnosed based on your medical history and symptoms, and a physical exam. Your health care provider may use a swab to take a mucus sample from your nose (nasal swab). This sample can be tested to determine what virus is causing the illness. How is this treated? URIs usually get better on their own within 7?10 days. Medicines cannot cure URIs, but your health care provider may recommend certain medicines to help relieve symptoms, such as: ? Qopi-qcj-zpgnrwu cold medicines. ? Cough suppressants. Coughing is a type of defense against infection that helps to clear the respiratory system, so take these medicines only as recommended by your health care provider. ? Fever-reducing medicines. Follow these instructions at home: Activity ? Rest as needed. ? If you have a fever, stay home from work or school until your fever is gone or until your health care provider says your URI cannot spread to other people (is no longer contagious). Your health care provider may have you wear a face mask to prevent your infection from spreading. Relieving symptoms ? Gargle with a mixture of salt and water 3?4 times a day or as needed. To make salt water, completely dissolve ??1 tsp (3?6 g) of salt in 1 cup (237 mL) of warm water. ? Use a cool-mist humidifier to add moisture to the air. This can help you breathe more easily. Eating and drinking ? Drink enough fluid to keep your urine pale yellow. ? Eat soups and other clear broths. General instructions ? Take yckv-hue-yeccyuv and prescription medicines only as told by your health care provider. These include cold medicines, fever reducers, and cough suppressants. ? Do not use any products that contain nicotine or tobacco. These products include cigarettes, chewing tobacco, and vaping devices, such as e-cigarettes. If you need help quitting, ask your health care provider. ? Stay away from secondhand smoke. ? Stay up to date on all immunizations, including the yearly (annual) flu vaccine. ? Keep all follow-up visits. This is important. How to prevent the spread of infection to others URIs can be contagious. To prevent the infection from spreading: ? Wash your hands with soap and water for at least 20 seconds. If soap and water are not available, use hand event coordinator marketing and sales. ? Avoid touching your mouth, face, eyes, or nose. ? Cough or sneeze into a tissue or your sleeve or elbow instead of into your hand or into the air. Contact a health care provider if: ? You are getting worse instead of better. ? You have a fever or chills. ? Your mucus is brown or red. ? You have yellow or brown discharge coming from your nose. ? You have pain in your face, especially when you bend forward. ? You have swollen neck glands. ? You have pain while swallowing. ? You have white areas in the back of your throat. Get help right away if: ? You have shortness of breath that gets worse. ? You have severe or persistent: ? Headache. ? Ear pain. ? Sinus pain. ? Chest pain. ? You have chronic lung disease along with any of the following: ? Making high-pitched whistling sounds when you breathe, most often when you breathe out (wheezing). ? Prolonged cough (more than 14 days). ? Coughing up blood. ? A change in your usual mucus. ? You have a stiff neck. ? You have changes in your: ? Vision. ? Hearing. ? Thinking. ? Mood. These symptoms may be (more content not included)... [facility] 07-14-2023 Note Education Materials Obstetrics and Gynecology Hyperemesis Gravidarum Hyperemesis gravidarum is a severe form of nausea and vomiting that happens during . Hyperemesis is worse than morning sickness. It may cause you to have nausea or vomiting all day for many days. It may keep you from eating and drinking enough food and liquids, which can lead to dehydration, malnutrition, and weight loss. Hyperemesis usually occurs during the first half (the first 20 weeks) of . It often goes away once a woman is in her second half of . However, sometimes hyperemesis continues through an entire . What are the causes? The cause of this condition is not known. It may be associated with: ? Changes in hormones in the body during . ? Changes in the gastrointestinal system. ? Genetic or inherited conditions. What are the signs or symptoms? Symptoms of this condition include: ? Severe nausea and vomiting that does not go away. ? Problems keeping food down. ? Weight loss. ? Loss of body fluid (dehydration). ? Loss of appetite. You may have no desire to eat or you may not like the food you have previously enjoyed. How is this diagnosed? This condition may be diagnosed based on your medical history, your symptoms, and a physical exam. You may also have other tests, including: ? Blood tests. ? Urine tests. ? Blood pressure tests. ? Ultrasound to look for problems with the placenta or to check if you are with more than one baby. How is this treated? This condition is managed by controlling symptoms. This may include: ? Following an eating plan. This can help to lessen nausea and vomiting. ? Treatments that do not use medicine. These include acupressure bracelets, hypnosis, and eating or drinking foods or fluids that contain carolyn, carolyn kelley, or carolyn tea. ? Taking prescription medicine or jioz-vuj-gmspmdf medicine as told by your health care provider. ? Continuing to take vitamins. You may need to change what kind you take and when you take them. Follow your health care provider's instructions about vitamins. An eating plan and medicines are often used together to help control symptoms. If medicines do not help relieve nausea and vomiting, you may need to receive fluids through an IV at the hospital. Follow these instructions at home: To help relieve your symptoms, listen to your body. Everyone is different and has different preferences. Find what works best for you. Here are some things you can try to help relieve your symptoms: Meals and snacks ? Eat 5?6 small meals daily instead of 3 large meals. Eating small meals and snacks can help you avoid an empty stomach. ? Before getting out of bed, eat a couple of crackers to avoid moving around on an empty stomach. ? Eat a protein-rich snack before bed. Examples include cheese and crackers, or a peanut butter sandwich made with 1 slice of whole-wheat bread and 1 tsp (5 g) of peanut butter. ? Eat and drink slowly. ? Try eating starchy foods as these are usually tolerated well. Examples include cereal, toast, bread, potatoes, pasta, rice, and pretzels. ? Eat at least one serving of protein with your meals and snacks. Protein options include lean meats, poultry, seafood, beans, nuts, nut butters, eggs, cheese, and yogurt. ? Eat or suck on things that have carolyn in them. It may help to relieve nausea. Add ? tsp (0.44 g) ground carolyn to hot tea, or choose carolyn tea. Fluids It is important to stay hydrated. Try to: ? Drink small amounts of fluids often. ? Drink fluids 30 minutes before or after a meal to help lessen the feeling of a full stomach. ? Drink 100% fruit juice or an electrolyte drink. An electrolyte drink contains sodium, potassium, and chloride. ? Drink fluids that are cold, clear, and carbonated or sour. These include lemonade, carolyn kelley, lemon?samish soda, ice water, and sparkling water. Things to avoid Avoid the following: ? Eating foods that trigger your symptoms. These may include spicy foods, coffee, high-fat foods, very sweet foods, and acidic foods. ? Drinking more than 1 cup of fluid at a time. ? Skipping meals. Nausea can be more intense on an empty stomach. If you cannot tolerate food, do not force it. Try sucking on ice chips or other frozen items and make up for missed calories later. ? Lying down within 2 hours after eating. ? Being exposed to environmental triggers. These may include food smells, smoky rooms, closed spaces, rooms with strong smells, warm or humid places, overly loud and noisy rooms, and rooms with motion or flickering lights. Try eating meals in a well-ventilated area that is free of strong smells. ? Making quick and sudden changes in your movement. ? Taking iron pills and multivitamins that contain iron. If you take prescription iron pills, do not stop taking them unless your health care provider approves. ? Preparing food. The s (more content not included)... [facility] 07-13-2023 Note Patient Education Ma terials Follows:Disease Upper Respiratory Infection, Adult An upper respiratory infection (URI) is a common viral infection of the nose, throat, and upper air passages that lead to the lungs. The most common type of URI is the common cold. URIs usually get better on their own, without medical treatment. What are the causes? A URI is caused by a virus. You may catch a virus by: ? Breathing in droplets from an infected person's cough or sneeze. ? Touching something that has been exposed to the virus (is contaminated) and then touching your mouth, nose, or eyes. What increases the risk? You are more likely to get a URI if: ? You are very young or very old. ? You have close contact with others, such as at work, school, or a health care facility. ? You smoke. ? You have long-term (chronic) heart or lung disease. ? You have a weakened disease-fighting system (immune system). ? You have nasal allergies or asthma. ? You are experiencing a lot of stress. ? You have poor nutrition. What are the signs or symptoms? A URI usually involves some of the following symptoms: ? Runny or stuffy (congested) nose. ? Cough. ? Sneezing. ? Sore throat. ? Headache. ? Fatigue. ? Fever. ? Loss of appetite. ? Pain in your forehead, behind your eyes, and over your cheekbones (sinus pain). ? Muscle aches. ? Redness or irritation of the eyes. ? Pressure in the ears or face. How is this diagnosed? This condition may be diagnosed based on your medical history and symptoms, and a physical exam. Your health care provider may use a swab to take a mucus sample from your nose (nasal swab). This sample can be tested to determine what virus is causing the illness. How is this treated? URIs usually get better on their own within 7?10 days. Medicines cannot cure URIs, but your health care provider may recommend certain medicines to help relieve symptoms, such as: ? Cnhu-vyi-cgppimx cold medicines. ? Cough suppressants. Coughing is a type of defense against infection that helps to clear the respiratory system, so take these medicines only as recommended by your health care provider. ? Fever-reducing medicines. Follow these instructions at home: Activity ? Rest as needed. ? If you have a fever, stay home from work or school until your fever is gone or until your health care provider says your URI cannot spread to other people (is no longer contagious). Your health care provider may have you wear a face mask to prevent your infection from spreading. Relieving symptoms ? Gargle with a mixture of salt and water 3?4 times a day or as needed. To make salt water, completely dissolve ??1 tsp (3?6 g) of salt in 1 cup (237 mL) of warm water. ? Use a cool-mist humidifier to add moisture to the air. This can help you breathe more easily. Eating and drinking ? Drink enough fluid to keep your urine pale yellow. ? Eat soups and other clear broths. General instructions ? Take uwih-lnu-wrtgvhb and prescription medicines only as told by your health care provider. These include cold medicines, fever reducers, and cough suppressants. ? Do not use any products that contain nicotine or tobacco. These products include cigarettes, chewing tobacco, and vaping devices, such as e-cigarettes. If you need help quitting, ask your health care provider. ? Stay away from secondhand smoke. ? Stay up to date on all immunizations, including the yearly (annual) flu vaccine. ? Keep all follow-up visits. This is important. How to prevent the spread of infection to others URIs can be contagious. To prevent the infection from spreading: ? Wash your hands with soap and water for at least 20 seconds. If soap and water are not available, use hand event coordinator marketing and sales. ? Avoid touching your mouth, face, eyes, or nose. ? Cough or sneeze into a tissue or your sleeve or elbow instead of into your hand or into the air. Contact a health care provider if: ? You are getting worse instead of better. ? You have a fever or chills. ? Your mucus is brown or red. ? You have yellow or brown discharge coming from your nose. ? You have pain in your face, especially when you bend forward. ? You have swollen neck glands. ? You have pain while swallowing. ? You have white areas in the back of your throat. Get help right away if: ? You have shortness of breath that gets worse. ? You have severe or persistent: ? Headache. ? Ear pain. ? Sinus pain. ? Chest pain. ? You have chronic lung disease along with any of the following: ? Making high-pitched whistling sounds when you breathe, most often when you breathe out (wheezing). ? Prolonged cough (more than 14 days). ? Coughing up blood. ? A change in your usual mucus. ? You have a stiff neck. ? You have changes in your: ? Vision. ? Hearing. ? Thinking. ? Mood. These symptoms may (more content not included)... [facility] 07-06-2023 Note Education Materials Obstetrics and Gynecology Morning Sickness Morning sickness is when a woman feels nauseous during . This nauseous feeling may or may not come with vomiting. It often occurs in the morning, but it can be a problem at any time of day. Morning sickness is most common during the first trimester. In some cases, it may continue throughout . Although morning sickness is unpleasant, it is usually harmless unless the woman develops severe and continual vomiting (hyperemesis gravidarum), a condition that requires more intense treatment. What are the causes? The exact cause of this condition is not known, but it seems to be related to normal hormonal changes that occur in . What increases the risk? You are more likely to develop this condition if: ? You experienced nausea or vomiting before your . ? You had morning sickness during a previous . ? You are with more than one baby, such as twins. What are the signs or symptoms? Symptoms of this condition include: ? Nausea. ? Vomiting. How is this diagnosed? This condition is usually diagnosed based on your signs and symptoms. How is this treated? In many cases, treatment is not needed for this condition. Making some changes to what you eat may help to control symptoms. Your health care provider may also prescribe or recommend: ? Vitamin B6 supplements. ? Anti-nausea medicines. ? Carolyn. Follow these instructions at home: Medicines ? Take dqbj-pca-uexgsar and prescription medicines only as told by your health care provider. Do not use any prescription, hklj-xzc-muiopsw, or herbal medicines for morning sickness without first talking with your health care provider. ? Take multivitamins before getting . This can prevent or decrease the severity of morning sickness in most women. Eating and drinking ? Eat a piece of dry toast or crackers before getting out of bed in the morning. ? Eat 5 or 6 small meals a day. ? Eat dry and bland foods, such as rice or a baked potato. Foods that are high in carbohydrates are often helpful. ? Avoid greasy, fatty, and spicy foods. ? Have someone cook for you if the smell of any food causes nausea and vomiting. ? If you feel nauseous after taking vitamins, take the vitamins at night or with a snack. ? Eat a protein snack between meals if you are hungry. Nuts, yogurt, and cheese are good options. ? Drink fluids throughout the day. ? Try carolyn kelley made with real carolyn, carolyn tea made from fresh grated carolyn, or carolyn candies. General instructions ? Do not use any products that contain nicotine or tobacco. These products include cigarettes, chewing tobacco, and vaping devices, such as e-cigarettes. If you need help quitting, ask your health care provider. ? Get an air purifier to keep the air in your house free of odors. ? Get plenty of fresh air. ? Try to avoid odors that trigger your nausea. ? Consider trying these methods to help relieve symptoms: ? Wearing an acupressure wristband. These wristbands are often worn for seasickness. ? Acupuncture. Contact a health care provider if: ? Your home remedies are not working and you need medicine. ? You feel dizzy or light-headed. ? You are losing weight. Get help right away if: ? You have persistent and uncontrolled nausea and vomiting. ? You faint. ? You have severe pain in your abdomen. Summary ? Morning sickness is when a woman feels nauseous during . This nauseous feeling may or may not come with vomiting. ? Morning sickness is most common during the first trimester. ? It often occurs in the morning, but it can be a problem at any time of day. ? In many cases, treatment is not needed for this condition. Making some changes to what you eat may help to control symptoms. This information is not intended to replace advice given to you by your health care provider. Make sure you discuss any questions you have with your health care provider. Document Revised: 03/25/2021 Document Reviewed: 03/04/2021 [employer]utive Patient Education ? 2022 [employer]. [facility] 06-19-2023 Note Education Materials Obstetrics and Gynecology Hyperemesis Gravidarum Hyperemesis gravidarum is a severe form of nausea and vomiting that happens during . Hyperemesis is worse than morning sickness. It may cause you to have nausea or vomiting all day for many days. It may keep you from eating and drinking enough food and liquids, which can lead to dehydration, malnutrition, and weight loss. Hyperemesis usually occurs during the first half (the first 20 weeks) of . It often goes away once a woman is in her second half of . However, sometimes hyperemesis continues through an entire . What are the causes? The cause of this condition is not known. It may be associated with: ? Changes in hormones in the body during . ? Changes in the gastrointestinal system. ? Genetic or inherited conditions. What are the signs or symptoms? Symptoms of this condition include: ? Severe nausea and vomiting that does not go away. ? Problems keeping food down. ? Weight loss. ? Loss of body fluid (dehydration). ? Loss of appetite. You may have no desire to eat or you may not like the food you have previously enjoyed. How is this diagnosed? This condition may be diagnosed based on your medical history, your symptoms, and a physical exam. You may also have other tests, including: ? Blood tests. ? Urine tests. ? Blood pressure tests. ? Ultrasound to look for problems with the placenta or to check if you are with more than one baby. How is this treated? This condition is managed by controlling symptoms. This may include: ? Following an eating plan. This can help to lessen nausea and vomiting. ? Treatments that do not use medicine. These include acupressure bracelets, hypnosis, and eating or drinking foods or fluids that contain carolyn, carolyn kelley, or carolyn tea. ? Taking prescription medicine or bwod-nai-oukcozq medicine as told by your health care provider. ? Continuing to take vitamins. You may need to change what kind you take and when you take them. Follow your health care provider's instructions about vitamins. An eating plan and medicines are often used together to help control symptoms. If medicines do not help relieve nausea and vomiting, you may need to receive fluids through an IV at the hospital. Follow these instructions at home: To help relieve your symptoms, listen to your body. Everyone is different and has different preferences. Find what works best for you. Here are some things you can try to help relieve your symptoms: Meals and snacks ? Eat 5?6 small meals daily instead of 3 large meals. Eating small meals and snacks can help you avoid an empty stomach. ? Before getting out of bed, eat a couple of crackers to avoid moving around on an empty stomach. ? Eat a protein-rich snack before bed. Examples include cheese and crackers, or a peanut butter sandwich made with 1 slice of whole-wheat bread and 1 tsp (5 g) of peanut butter. ? Eat and drink slowly. ? Try eating starchy foods as these are usually tolerated well. Examples include cereal, toast, bread, potatoes, pasta, rice, and pretzels. ? Eat at least one serving of protein with your meals and snacks. Protein options include lean meats, poultry, seafood, beans, nuts, nut butters, eggs, cheese, and yogurt. ? Eat or suck on things that have carolyn in them. It may help to relieve nausea. Add ? tsp (0.44 g) ground carolyn to hot tea, or choose carolyn tea. Fluids It is important to stay hydrated. Try to: ? Drink small amounts of fluids often. ? Drink fluids 30 minutes before or after a meal to help lessen the feeling of a full stomach. ? Drink 100% fruit juice or an electrolyte drink. An electrolyte drink contains sodium, potassium, and chloride. ? Drink fluids that are cold, clear, and carbonated or sour. These include lemonade, carolyn kelley, lemon?samish soda, ice water, and sparkling water. Things to avoid Avoid the following: ? Eating foods that trigger your symptoms. These may include spicy foods, coffee, high-fat foods, very sweet foods, and acidic foods. ? Drinking more than 1 cup of fluid at a time. ? Skipping meals. Nausea can be more intense on an empty stomach. If you cannot tolerate food, do not force it. Try sucking on ice chips or other frozen items and make up for missed calories later. ? Lying down within 2 hours after eating. ? Being exposed to environmental triggers. These may include food smells, smoky rooms, closed spaces, rooms with strong smells, warm or humid places, overly loud and noisy rooms, and rooms with motion or flickering lights. Try eating meals in a well-ventilated area that is free of strong smells. ? Making quick and sudden changes in your movement. ? Taking iron pills and multivitamins that contain iron. If you take prescription iron pills, do not stop taking them unless your health care provider approves. ? Preparing food. The s (more content not included)... [facility] 05-01-2023 Evaluation note Encounter Date Diagnosis Assessment Notes Apr, Well adult exam (ICD-10 - Z00.00) 22-year-old female who is overall very healthy and does not take any daily chronic medications. 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 She is no longer doing the job but she continues to have SI joint strain. Patient was instructed that she can continue with anti-inflammato yusef but recommended rehab exercises for the SI joints and a handout for this was given. She is to follow-up in 3 to 4 weeks if not improving. Otherwise she is overall very healthy no concerning findings on physical exam. She is to follow-up in 1 year or sooner if a different acute issue arises. Apr, Sacro-conor ac pain (ICD-10 - M53.3) [facility] Other 07-31-2022 Hospital Discharge instructions* Discharge Instructions* Vijay Rico RN - 03/23/2022 10:21 PM EDT Call your physicians office or notify your physician by paging them if you experience: Signs of Pre-eclampsia: Dizziness or severe headache Spots before eyes or blurred vision Epigastric pain / Right side abdominal pain Swelling of face, hands, legs or feet not decreased with rest on left side. Signs of infection: Chills Fever Start of, or change in, vaginal discharge Signs of labor: Uterine contractions are regular and 5 minutes apart if 1st baby or 10 minutes apart if not 1st baby Bag or zuñiga leaking or gush of fluid from vagina Any vaginal bleeding that is heavier than a menstrual period Intermittent low backache Abdominal or menstrual like cramping that is constant or heavier, comes and goes Vaginal pressure Potential for dehydration: Vomiting or diarrhea for several hours Potential abnormal well being signs: Decrease or absence of baby movement documented in this [facility] Phone: 1([phone]) 198-361707-31-2022 History of Present illness Narrative* Tonya Begum RN - 03/23/2022 6:49 PM EDT Pt arrives to department complaining of contractions that started around 3PM that she timed at 5min apart. Pt rates contractions /10. Denies bleeding and leaking of fluid, states she lost her mucus plug at 34 weeks. Oriented to room 208. [facility] [employer] Phone: [phone]) 963-187512-19-2021 Hospital Discharge instructions* Attachments The following attachments cannot be sent through Care Everywhere. * : Hyperemesis Gravidarum (Romanian) * Video: Managing Morning Sickness (Romanian) documented in this encounterIncuvo Phone: evalwozael note* Diagnosis Mild hyperemesis gravidarum, antepartum- Primary documented in this encounter [employer] Phone: [email or web address] note* Diagnosis Uterine contractions during - Primary documented in this encounter [facility] [employer] Phone: [email or web address] noteNo InformationNort [employer] Other History general Narrative - Reported* Type Description Date Medical History POTS Surgical History none [facility] Other Summary Purpose Family History No Family History Records FoundUnknown Family Member Name Dates Details Family history of diabetes m ellitus: Paternal Grandmother, Paternal Grandfather(V18.0, Z83.3) Status:Active Advance Directives No Advanced Directives Records FoundDocuments on File Type Date Recorded Patient Ux Manager Expl anation ACP-Advance Directive ACP-Power of Signals Officer Latest Code Status on File Code Status Date Activated Date Inactivated Comments Full Code 03/23/2022 7:04 PM Additional Source Comments INFORMATION SOURCE (unrecogn ized section and content) DATE CREATED AUTHOR 03/09/2020 [facility] DATE CREATED AUTHOR AUTHOR'S ORGANIZ ATION 03/15/2020 [employer] DATE CREATED AUTHOR AUTHOR'S ORGANIZ ATION 08/11/2021 [facility] DATE CREATED AUTHOR AUTHOR'S ORGANIZ ATION 10/15/2021 [facility] DATE CREATED AUTHOR AUTHOR'S ORGANIZ ATION 01/19/2022 [facility] DATE CREATED AUTHOR AUTHOR'S ORGANIZ ATION 08/27/2023 [facility] DATE CREATED AUTHOR AUTHOR'S ORGANIZ ATION 09/04/2023 [facility] Reason for Visit (unrecogniz ed section and content) Reason Comments Emesis During Reason Comments Contractions Ordered Prescriptions (unrec ognized section and content) Prescription Sig Dispensed Refills Start Date End Da te ondansetron (ZOFRAN ODT) 4 MG disintegrating tablet Take 1 tablet by mouth every 8 hours as needed for Nausea 20 tablet 0 08/11/2021 Scheduled Active and Recently Administ ered Medications (unrecognized section and content) Medication Order 08/09/2021 08/10/2021 08/11/2021 0.9 % sodium chloride bolus (COMPLETED) 1,000 mL (18.4 mL/kg), IntraVENous, at 1,000 mL/hr, Administer over 1 Hours, ONCE, On 08/11/21 at 1549, For 1 dose 1614 (New Bag - Prov ider: Uche Power, MICHELLE)1720 (Stopped - Provider: Adele Romeo RN) ondansetron (ZOFRAN) injection 4 mg (COMPLETED) 4 mg, IntraVENous, ONCE, On 08/11/21 at 1549, For 1 dose 1615 (Given - Provid er: Uche Power, MICHELLE) Scheduled Medication Order 03/21/2022 03/22/2022 03/23/2022 lactated ringers bolus (COMPLETED) 500 mL, IntraVENous, at 247.9 mL/hr, Administer over 121 Minutes, ONCE, On 03/23/22 at 2045, For 1 dose 2120 (New Bag - Prov ider: Vijay Rico, MICHELLE)2209 (Stopped - Provider: Vijay Rico, RN) lactated ringers bolus 500 mL, IntraVENous, at 491.8 mL/hr, Administer over 61 Minutes, ONCE, On 03/23/22 at 2145, For 1 dose 2121 (Rate/Dose Ramesh ge - Provider: Vijay Rico, RN)2122 (Bolus from Bag - Provider: Vijay Rico RN)2209 (Stopped - Provider: Vijay Rico RN) Continuous Medication Order 03/21/2022 03/22/2022 03/23/2022 lactated ringers infusion IntraVENous, at 200 mL/hr, CONTINUOUS, Starting on 03/23/22 at 2045, After 500 ml bolus complete 2210 (Rate/Dose Ramesh ge - Provider: Vijay Rico, RN)2326 (Stopped - Provider: Vijay Rico RN) Care Teams (unrecognized sec tion and content) Graphic Manager Relationship Specialty Start Date End Date Quiana Naranjo, DO [address] [place] [address] PCP - General Family Medicine 08/08/21 Graphic Manager Relationship Specialty Start Date End Date Burak Quiana Mreedith, DO [address] [place] [address] PCP - General Family Medicine 08/08/21 FOR RECORDS PERTAINING TO PATIENTS WHO ARE OR HAVE BEEN ENROLLED IN A CHEMICAL DEPENDENCY/SUBSTANCEABUSE PROGRAM, SOME INFORMATION MAY BE OMITTED. This clinical summary was aggregated from multiple sources. Caution should be exercised in using it in the provision of clinical care. This summary normalizes information from multiple sources, and as a consequence, information in this document may materially change the coding, format and clinical context of patient data. In addition, data may be omitted in some cases. CLINICAL DECISIONS SHOULD BE BASED ON THE PRIMARY CLINICAL RECORDS. [employer] provides no warranty or guarantee of the accuracy or completeness of information in this document.
== END 2023-09-30 09:32 | disposition home or self-care (01) ==
LOC: NOMS 09:31
PROVIDERS: PCP Family Medicine; Visit Provider Obstetrics & Gynecology
DX: Z36.89 Encounter for other specified antenatal screening (principal); Z3A.20 20 weeks gestation of pregnancy
CPT/HCPCS: 76805; 76817

== ENCOUNTER 2023-12-01 08:53 | Outpatient (OUT) | payer MEDICAID, SELFPAY ==
[2023-12-01 10:59] LABS: Glucose 1 Hour 112 mg/dL (<130)
== END 2023-12-01 08:54 | disposition home or self-care (01) ==
LOC: LAB 08:55
PROVIDERS: PCP Family Medicine; Visit Provider Physician Assistant
DX: Z13.1 Encounter for screening for diabetes mellitus (principal)
CPT/HCPCS: 36415; 82950

== ENCOUNTER 2023-12-01 09:21 | Outpatient (OUT) | payer MEDICAID, SELFPAY ==
[2023-12-01 10:25] LABS: Basophils Percent Auto 0.1 % (0.2-2.0); Eosinophils Absolute Auto 0.1 10^3/uL (0.0-0.7); Eosinophils Percent Auto 0.9 % (0.9-7.0); Hematocrit 33.1 % (36.0-48.0); Hemoglobin 10.3 g/dL (12.0-16.0); Immature Granulocytes Abs Auto 0.04 10^3/uL (0.00-0.03); Immature Granulocytes Pct Auto 0.5 % (0.0-0.5); Lymphocytes Absolute Auto 1.6 10^3/uL (1.2-3.8); Lymphocytes Percent Auto 20.5 % (20.5-60.0); Mean Corpuscular HGB Conc 31.1 g/dL (29.9-35.2); Mean Corpuscular Hemoglobin 27.5 pg (26.7-34.0); Mean Corpuscular Volume 88.3 fL (81.0-99.0); Mean Platelet Volume 13.9 fL (9.5-13.5); Monocytes Absolute Auto 0.4 10^3/uL (0.3-0.8); Monocytes Percent Auto 5.3 % (1.7-12.0); Neutrophils Absolute Auto 5.7 10^3/uL (1.4-6.5); Neutrophils Percent Auto 72.7 % (43.0-75.0); Platelet Count 131 10^3/uL (150-450); Red Blood Count 3.75 10^6/uL (4.20-5.40); Red Cell Distribution Width 13.5 % (11.0-15.0); White Blood Count 7.8 10^3/uL (4.0-11.0)
[2023-12-01 12:40] LABS: Estimated Average Glucose 105 mg/dL; Glycohemoglobin A1C 5.3 % (4.5-6.2)
[2023-12-02 06:08] LABS: HCV Ab Non Reactive (Non Reactive); HIV Ab/p24 Ag Screen Non Reactive (Non Reactive)
[2023-12-02 08:11] LABS: HBsAg Screen Negative (Negative)
[2023-12-02 12:09] LABS: Rapid Plasma Reagin, Quant Non Reactive titer (NonRea<1:1)
[2023-12-02 14:09] LABS: Rubella Antibodies, IgG 0.98 index (Immune >0.99)
== END 2023-12-01 09:22 | disposition home or self-care (01) ==
LOC: LAB 09:22
PROVIDERS: PCP Family Medicine; Visit Provider Obstetrics & Gynecology
DX: N91.2 Amenorrhea, unspecified (principal); Z13.1 Encounter for screening for diabetes mellitus
CPT/HCPCS: 36415; 82950; 83036; 85025; 86592; 86762; 86803; 86850; 86900; 86901; 87086; 87340; 87389

== ENCOUNTER 2024-01-06 14:26 | Outpatient (OUT) | payer MEDICAID, SELFPAY ==
--- NOTE | 2024-01-06 14:29 | US_ITS ---
[place] [id number] Patient Name: ZOHAIB HAQUE MRN: [id number] date: 2000 Sex: F Assigned Patient Location: [facility] Current Patient Location: [facility] Accession/Order Number: [id number] Exam Date: 01/06/2024 14:30 Report Date: 01/06/2024 15:24 At the request of: LACI CELESTE Procedure: US OB growth EXAMINATION: US OB growth HISTORY: POSTURAL ORTHOSTATIC TACHYCARDIA SYNDROM, IRON DEFIENCY ANEM COMPARISON: No relevant comparison available. FINDINGS: Heart Rate: 121.0 bpm Amniotic Fluid Volume: 12.7 cm Number: 1.0 Position: Cephalic presentation, longitudinal lie Maximum Vertical Pocket: 5.5 cm cm 1.6 cm cm 3.5 cm cm 2.1 cm cm BIOMETRY: BPD: 8.9 cm cm; 36 weeks 1 days; 86% HC: 32.5 cmcm; 36 weeks 5 days , 68% AC: 32.8 cm cm; 36 weeks 5 days, 96% FL: 6.7 cm cm; 34 weeks 2 days; 29.0 % % EFW: 2836.9 grams, 6 lbs. 4 oz., 83% FL/AC: 20.3 FL/BPD: 74.5 HC/AC: 1.0 GESTATIONAL AGE: Age by EDC: 34 weeks 5 days JUANITO by EDC: 02/12/2024 Age by US: 36 weeks 0 days JUANITO by US: 02/03/2024 US/US OB growth IMPRESSION: Normal interval growth Electronically authenticated by: BEVERLEY RIZZO Date: 01/06/2024 15:24
== END 2024-01-06 14:27 | disposition home or self-care (01) ==
LOC: NOMS 14:26
PROVIDERS: PCP Family Medicine; Visit Provider Obstetrics & Gynecology
DX: Z34.93 Encounter for supervision of normal pregnancy, unspecified, third trimester (principal); G90.A Postural orthostatic tachycardia syndrome [POTS]; D50.8 Other iron deficiency anemias; Z3A.33 33 weeks gestation of pregnancy
CPT/HCPCS: 76816

== ENCOUNTER 2024-01-13 11:23 | Outpatient (OUT) | payer MEDICAID, SELFPAY ==
[2024-01-13 12:32] LABS: Basophils Percent Auto 0.3 % (0.2-2.0); Eosinophils Percent Auto 0.4 % (0.9-7.0); Hematocrit 29.9 % (36.0-48.0); Hemoglobin 9.5 g/dL (12.0-16.0); Immature Granulocytes Abs Auto 0.11 10^3/uL (0.00-0.03); Immature Granulocytes Pct Auto 1.2 % (0.0-0.5); Lymphocytes Absolute Auto 1.6 10^3/uL (1.2-3.8); Lymphocytes Percent Auto 17.7 % (20.5-60.0); Mean Corpuscular HGB Conc 31.8 g/dL (29.9-35.2); Mean Corpuscular Hemoglobin 26.6 pg (26.7-34.0); Mean Corpuscular Volume 83.8 fL (81.0-99.0); Mean Platelet Volume 14.4 fL (9.5-13.5); Monocytes Absolute Auto 0.7 10^3/uL (0.3-0.8); Neutrophils Absolute Auto 6.8 10^3/uL (1.4-6.5); Neutrophils Percent Auto 73.4 % (43.0-75.0); Platelet Count 148 10^3/uL (150-450); Red Blood Count 3.57 10^6/uL (4.20-5.40); Red Cell Distribution Width 14.6 % (11.0-15.0); White Blood Count 9.3 10^3/uL (4.0-11.0)
[2024-01-14 05:07] LABS: Transferrin 453 mg/dL (192-364)
== END 2024-01-13 11:24 | disposition home or self-care (01) ==
LOC: LAB 11:25
PROVIDERS: PCP Family Medicine; Visit Provider Obstetrics & Gynecology
DX: G90.A Postural orthostatic tachycardia syndrome [POTS] (principal); Z34.93 Encounter for supervision of normal pregnancy, unspecified, third trimester; Z3A.33 33 weeks gestation of pregnancy; D50.8 Other iron deficiency anemias
CPT/HCPCS: 36415; 82728; 84466; 85025; 87081

== ENCOUNTER 2024-01-13 21:25 | Outpatient (REF) | payer MEDICAID, SELFPAY | END 2024-01-13 21:26 | disposition home or self-care (01) | LOC: LAB 21:25 | PROVIDERS: PCP Family Medicine; Visit Provider Physician Assistant | DX: Z34.93 Encounter for supervision of normal pregnancy, unspecified, third trimester (principal) | CPT/HCPCS: 87081 ==

== ENCOUNTER 2024-02-04 10:30 | Inpatient (IN) | payer MEDICAID, SELFPAY ==
[2024-02-04] VITALS (29 sets, daily range): BP systolic 98–128; BP diastolic 53–72; PULSE 68–111; TEMP 35.9–36.4
[2024-02-04 11:12] LABS: Hematocrit 29.5 % (36.0-48.0); Hemoglobin 9.4 g/dL (12.0-16.0); Mean Corpuscular HGB Conc 31.9 g/dL (29.9-35.2); Mean Corpuscular Hemoglobin 25.9 pg (26.7-34.0); Mean Corpuscular Volume 81.3 fL (81.0-99.0); Platelet Count 152 10^3/uL (150-450); Red Blood Count 3.63 10^6/uL (4.20-5.40); White Blood Count 10.8 10^3/uL (4.0-11.0)
[2024-02-04] MEDS: OXYTOCIN/0.9 % SODIUM CHLORIDE 10 UNITS/500 ML PLAST..BAG 6 UNIT IV (11:21)
[2024-02-04] MEDS: ONDANSETRON PF 4 MG/2 ML VIAL IV (11:22)
[2024-02-04] MEDS: 0.9 % SODIUM CHLORIDE 1,000 ML 125 ML IV ×2 (11:22→13:02)
[2024-02-04 11:27] LABS: Amphetamine Screen Urine NEGATIVE (NEGATIVE); Barbiturates Screen Urine NEGATIVE (NEGATIVE); Benzodiazepines Screen Urine NEGATIVE (NEGATIVE); Buprenorphine Screen Urine NEGATIVE (NEGATIVE); Cannabinoid Screen Urine POSITIVE (NEGATIVE); Cocaine Screen Urine NEGATIVE (NEGATIVE); Methadone Screen Urine NEGATIVE (NEGATIVE); Methamphetamines Screen Urine NEGATIVE (NEGATIVE); Opiate Screen Urine NEGATIVE (NEGATIVE); Oxycodone Screen Urine NEGATIVE (NEGATIVE); Phencyclidine Screen Urine NEGATIVE (NEGATIVE); Tricyclic Antidepressant Urine NEGATIVE (NEGATIVE)
[2024-02-04] MEDS: ROPIVACAINE HCL/PF 400 MG/200 ML PREMIX 6 MG EPIDURAL (13:02)
[2024-02-04] MEDS: OXYTOCIN/0.9 % SODIUM CHLORIDE 20 UNITS/1,000 ML PLAST..BAG 125 UNIT IV (15:35)
--- NOTE | 2024-02-04 15:40 | PM.OBPRCVD ---
Procedure Intrapartal events: None Induction method: per pitocin protocol Delivery augmentation: rupture of membranes and pitocin Delivery monitor: external FHT and external uterine Route of delivery: Episiotomy Description: none L&D Laceration Description: periurethral - 1st degree Delivery repair: Vicryl Estimated blood loss (mL): 200 Anesthesia type: Epidural Disposition: floor Infant Delivery date: 02/04/24 Gender: male presentation: vertex Placental delivery description: Spontaneous cord description: 3 Vessels
[2024-02-04] MEDS: BENZOCAINE/MENTHOL 85 GRAM SPRAY BOTTLE 1 APPLIC TOPICAL (16:58)
[2024-02-04] MEDS: IBUPROFEN 600 MG TABLET PO (22:07)
[2024-02-05 06:07] LABS: Basophils Percent Auto 0.2 % (0.2-2.0); Eosinophils Absolute Auto 0.1 10^3/uL (0.0-0.7); Eosinophils Percent Auto 0.7 % (0.9-7.0); Hematocrit 26.5 % (36.0-48.0); Hemoglobin 8.3 g/dL (12.0-16.0); Immature Granulocytes Abs Auto 0.06 10^3/uL (0.00-0.03); Immature Granulocytes Pct Auto 0.5 % (0.0-0.5); Lymphocytes Absolute Auto 2.2 10^3/uL (1.2-3.8); Mean Corpuscular HGB Conc 31.3 g/dL (29.9-35.2); Mean Corpuscular Hemoglobin 25.5 pg (26.7-34.0); Mean Corpuscular Volume 81.3 fL (81.0-99.0); Monocytes Absolute Auto 0.8 10^3/uL (0.3-0.8); Monocytes Percent Auto 6.7 % (1.7-12.0); Neutrophils Percent Auto 73.9 % (43.0-75.0); Platelet Count 121 10^3/uL (150-450); Red Blood Count 3.26 10^6/uL (4.20-5.40); White Blood Count 12.1 10^3/uL (4.0-11.0)
[2024-02-05] MEDS: IBUPROFEN 600 MG TABLET PO (09:13)
[2024-02-05] MEDS: DOCUSATE SODIUM 100 MG CAPSULE PO (09:14)
[2024-02-05 09:19] VITALS: BP 106/61; PULSE 80
--- NOTE | 2024-02-05 11:48 | PM.OBDS ---
DS: Providers Provider Date of admission: 02/04/24 10:30 Primary care physician: PINA AHUJA DO Admitting clinician: Jakob Zayas Consults: 02/04/24 Consult to Anesthesiology Routine Consulting Provider: Jakob Zayas Reason for consultation: epidural Consult to Scale Reclamation Tender Routine Reason for consult:: Drug Abuse Other reason:: POS THC ON ADMIT Attending physician on discharge: Lia Don Anticipated date of discharge: 02/05/24 DS: Diagnosis Discharge Diagnosis (1) Normal vaginal delivery: Assessment and plan: ROUTINE CARE Plan WILL SEND HOME ON FESO4 325MG QD AND IBUPROFEN 600 MG PO [id number] PRN OB - DS: Summary Hospital Course Hospital Course: UNCOMPLICATED Time spent discussing smoking cessation with patient: 3 to 10 minutes Peripartum Data - Vaginal Delivery Laceration description: periurethral - 2nd degree Episiotomy Description: none Complications complications: none Infant Delivery method: spontaneous vaginal delivery Gender: male Discharge plan: home Status at Discharge Cognitive/behavioral status at discharge: WNL Functional status at discharge: independent ambulation Time Spent with Patient Time attestation: Total time spent providing and/or coordinating discharge services: Time spent: less than 30 minutes Exam Narrative Exam Narrative: VOICING NO COMPLAINTS Constitutional Vital Signs, click to edit/add: Last Vital Signs Temp 96.6 F L 02/04/24 23:08 Pulse 80 02/05/24 09:19 Resp 16 02/04/24 12:15 BP 106/61 02/05/24 09:19 O2 Del Method Room Air 02/04/24 16:00 Documenting provider has reviewed patient's vital signs: yes Common normals: no apparent distress, oriented x3, healthy appearing, alert and well nourished [facility] Common normals: normocephalic and head/scalp atraumatic Eye Pupil: PERRL and accommodation reflex normal Neck & C-Spine Common normals: full ROM and supple Respiratory Common normals: normal respiratory effort Cardio Common normals: regular rate and regular rhythm GI Common normals: Normal to inspection, nondistended, normoactive bowel sounds present and soft to palpation Common normals: no CVA tenderness Back & Pelvis Common normals: no thoracic nor lumbar tenderness Extremity Common normals: normal to inspection, full ROM and no calf tenderness Neuro Common normals: CN's II-XII intact bilaterally, moves all extremities, no focal motor deficits and no sensory deficits noted Psych Common normals: mental status grossly normal, thought process normal, cooperative and affect normal DS: Data Data Completed and Pending Labs on day of discharge: Labs from last 24 hours 02/05/24 02/04/24 05:55 10:40 WBC 12.1 H RBC 3.26 L Hgb 8.3 L Hct 26.5 L MCV 81.3 MCH 25.5 L MCHC 31.3 RDW 15.0 Plt Count 121 L Neut % (Auto) 73.9 Lymph % (Auto) 18.0 L [place] % (Auto) 6.7 Eos % (Auto) 0.7 L Baso % (Auto) 0.2 Neut # (Auto) 9.0 H Lymph # (Auto) 2.2 [place] # (Auto) 0.8 Eos # (Auto) 0.1 Baso # (Auto) 0.0 Abs Immat Gran (auto) 0.06 H Imm/Tot Granulo (auto) 0.5 Blood Type A Positive Antibody Screen Positive Discharge Plan Discharge Disposition: Home, Self-Care Condition: Good Assessment: CONDITION GOOD, REQUESTING DISCHARGE Health Concerns: NA Plan of Treatment: ROUTINE POST INSTRUCTIONS Activity: increase activity as tolerated Activity Detail: WALKING ONLY EXERCISE FOR FOUR WEEKS, NO SWIMMING FOR 4 WEEKS Diet: regular diet Print Language: Sierra Leonean Activity Restrictions/Additional Instructions: NO SEX SIX WEEKS Forms: Portal Instructions Follow Up Appointments: SIX WEEKS FROM DELIVERY Discharge location: HOME
--- NOTE | 2024-02-05 12:51 | SWNOTE1 ---
SW met with pt in regards to positive THC drug test on admission. Pt and father of baby in room. This is there second child. They had to meet with SW for first child as well and CPS opened a case and came for a short time to do 1 visit to make sure they had everything they needed and then closed case. Pt has everything needed at home for baby. They voiced they have good support at home. Pt did use WIC for first child and will contact WIC again. SW addressed the positive drug screen for marijuana. She voiced she was on Zofran and when that did not work she would take 1/2 hits to help with nausea. Pt does not have a medical marijuana card. Pt does not plan on continuing use at home. RAOUL advised pt that SW is mandated reported and has to call CPS to notify of positive drug screen. They voiced understanding and had no questions. RAOUL filled out HIPAA form and sent to [employer]. RAOUL called and made report to [facility] CPS.
[2024-02-05] MEDS: MEASLES,MUMPS,RUBELLA VACC/PF 0.5 ML VIAL SQ (18:20)
[2024-02-08 10:07] LABS: Cannabinoid Positive (.); Carboxy THC Conf, MS, UR 65 ng/mL (Cutoff=10)
== END 2024-02-05 18:20 | disposition home or self-care (01) | DRG 560 ==
PROVIDERS: Admitting Provider Obstetrics & Gynecology; PCP Family Medicine; Visit Provider Obstetrics & Gynecology
DX: O99.324 Drug use complicating childbirth (principal); F15.90 Other stimulant use, unspecified, uncomplicated; O70.0 First degree perineal laceration during delivery; Z3A.39 39 weeks gestation of pregnancy; Z37.0 Single live birth
CPT/HCPCS: 36415; 51701; 59050; 59410; 80307; 80349; 85025; 85027; 86850; 86870; 86880; 86900; 86901; 86905; 86906; 90471; 90707; 96365; 96366; 96375; 96376; J2405; J2795

== ENCOUNTER 2024-02-08 08:34 | Outpatient (OUT) | payer MEDICAID, SELFPAY ==
--- NOTE | 2024-02-08 13:26 | PC.NURSE ---
Ryne S.Jo-Ann. and 4 day old Leonel arrive for follow up visit. Mom states is recovering well, denies complaints or concerns for self or NB. Ryne has VSS and assessment WNL. Milk coming in today, had been giving the baby formula as all he wanted to do was nurse yesterday and during the night , I was afraid I didn't have milk for him . Reviewed normal expectations of early days of and process of milk coming in. Verbalized understanding. Leonel alert and looking around, color pink, resp easy and flexed tone. VSS and assessment WNL. Bili 12.3 but mom reports 8+ wets and 3 stools since midnight. Stools this AM are yellow in color and seedy. Cord clamp removed as cord is now dry. No concerns with cord. to breast, latches easily and has multiple swallows. Gentle reminder for mom to hold NB close and encourage a deep latch. Nursed first child 18 months and states oh now I remember he needs a bit more help . Mom aware of MOMS group and to call for concerns. Family leaves ambulatory.
[2024-02-08 13:28] VITALS: BP 115/77; PULSE 92; TEMP 36.5; O2SAT 98
== END 2024-02-08 12:05 | disposition home or self-care (01) ==
LOC: FBCO 08:35
PROVIDERS: PCP Family Medicine; Visit Provider Midwife
DX: Z39.2 Encounter for routine postpartum follow-up (principal)